=== PATIENT | female | born 1965 | race Caucasian/White ===

== ENCOUNTER → 2019-05-06 17:34 | Outpatient (CLI) | payer BC, SELFPAY ==
--- NOTE | ~2019-05-06 | MM_ITS ---
EXAMINATION: MM screening ginger BI w lou HISTORY: Screening mammogram TECHNIQUE: Craniocaudal and mediolateral oblique 3-D tomosynthesis images were obtained and synthetic 2-D images were generated. CAD analysis was submitted and interpreted. COMPARISON: Comparison to multiple prior studies sequentially, with oldest reviewed study dated 04/2015. BREAST PARENCHYMAL COMPOSITION: The breasts are heterogeneously dense, which may obscure small masses . FINDINGS: There is focal asymmetry in the medial aspect of the right breast on CC view. The left ace st is stable without evidence for malignancy. IMPRESSION: 1. Focal asymmetry medially in the right breast. 2. Additional mammographic views and possible breast ultrasound are recommended. BI-RADS Category 0: Incomplete: Needs additional imaging evaluation. Reviewed, dictated and finalized at location A. STACKER IMPRESSION: 1. Focal asymmetry medially in the right breast. 2. Additional mammographic views and possible breast ultrasound are recommended . BI-RADS Category 0: Incomplete: Needs additional imaging evaluation.
== END ==
PROVIDERS: PCP Internal Medicine; Visit Provider Advanced Practice Midwife
DX: Z12.31 Encounter for screening mammogram for malignant neoplasm of breast (principal); R92.8 Other abnormal and inconclusive findings on diagnostic imaging of breast
CPT/HCPCS: 77063; 77067

== ENCOUNTER 2019-05-17 18:27 | Emergency (ER) | payer BC, SELFPAY ==
--- NOTE | 2019-05-17 18:34 | PC.NURSE ---
[employer] ADMINISTRATOR provider heard pt moaning from the desk, and went to talk with her, and pt decided to just go to the hospital.
== END 2019-05-17 18:34 | disposition left against medical advice (07) ==
PROVIDERS: PCP Internal Medicine
DX: Z53.21 Procedure and treatment not carried out due to patient leaving prior to being seen by health care provider (principal)
CPT/HCPCS: 99199

== ENCOUNTER 2019-05-17 18:47 | Emergency (ER) | payer BC, SELFPAY ==
--- NOTE | ~2019-05-17 | XR_ITS ---
EXAMINATION: [id number] INDICATION: Right rib pain TECHNIQUE: A frontal view of the chest and 3 views of the right ribs were obtained. COMPARISON: None. FINDINGS: The lungs are free of acute opacities. There is no pleural effusion or pneumothorax. The ca rdiomediastinal silhouette is normal. There is a nondisplaced oblique fracture at the anterior aspect of the right fifth rib. IMPRESSION: 1. Nondisplaced fracture at the anterior aspect of the right fifth rib. 2. No acute cardiopulmonary abnormality. Reviewed, dictated and finalized at location A.
[2019-05-17 18:57] VITALS: BP 108/78; PULSE 92; RESP 18; O2SAT 99
[2019-05-17] MEDS: KETOROLAC (*BKC) 60 MG/2 ML VIAL 30 MG IM (19:21)
--- NOTE | 2019-05-17 19:58 | ED.GENADULT ---
HPI - General Adult General Chief complaint: Unspecified Stated complaint: Right rib pain Time Seen by Provider: 05/17/19 18:56 Source: patient Mode of arrival: ambulatory Limitations: no limitations History of Present Illness HPI narrative: Patient presents with chief complaint of right rib pain. Patient states 1 week ago she was reaching over the console in her car and felt a popping sensation. Patient states it was painful but today she reached up and noticed a sharper pain to the area. Patient states she does not actually feel shortness of breath that she feels pain with breathing. Patient states she is able to touch the area of pain. Patient denies cough. patient reports taking ibuprofen for her discomfort. Patient reports having osteoporosis for which she takes Prolia injections. Patient denies being on estrogen therapy. Patient denies history of PE or DVT. Patient does not smoke cigarettes but she does vape. Related Data Home Medications Medication Instructions Recorded Confirmed atorvastatin 05/17/19 bupropion HCl mg PO 05/17/19 diltiazem HCl [Cardizem CD] PO 05/17/19 flecainide 05/17/19 furosemide 05/17/19 potassium chloride meq PO 05/17/19 Allergies Allergy/AdvReac Type Severity Reaction Status Date / Time codeine AdvReac Mild Other Verified 05/17/19 19:04 Review of Systems Review of Systems: Narrative: CONSTITUTIONAL: Denies fever, chills, or sweats. EYES: Denies visual changes, redness, or discharge. ENT: Denies rhinorrhea, congestion, sore throat, or otalgia. CARDIOVASCULAR: Denies chest pain, palpitations, or edema. RESPIRATORY: Denies cough or dyspnea. GASTROINTESTINAL: Denies abdominal pain, nausea, vomiting, or diarrhea. GENITOURINARY: Denies dysuria or hematuria. SKIN: Denies rash or itching. MUSCULOSKELETAL: Denies back pain, joint pain, or myalgia. NEUROLOGIC: Denies headache, numbness, dizziness, or weakness. PSYCHIATRIC: Denies anxiety or depression. PMFSH Social History Social History Gender identity (if verbalized by the patient): Female Exam Narrative: Exam Narrative: GENERAL: Well-appearing, well-nourished. Patient appears uncomfortable holding right rib HEAD: Normocephalic, atraumatic. EYES: PERRLA and EOMI. ENT: Nares clear, no rhinorrhea or epistaxis. Mucous membranes moist. Oropharynx without tonsillar hypertrophy exudate or other lesions. Bilateral TMs pearly sanchez nonbulging CHEST: Tenderness to palpation at fifth rib between breasts and axilla. No divot or flail chesting noted. No abrasions or ecchymosis noted. Clear to auscultation. No respiratory distress. No wheezes rales or rhonchi HEART: Regular rate and rhythm. EXTREMITIES: Normal range of motion. No edema. SKIN: Warm, dry, no rash. NEURO: No focal deficits. Alert and oriented x3. PSYCH: Normal mood and affect. Course Vital Signs Vital signs: Vital Signs Pulse Rate 92 05/17/19 18:57 Respiratory Rate 18 05/17/19 18:57 Blood Pressure 108/78 05/17/19 18:57 Pulse Oximetry 99 05/17/19 18:57 Pulse Rate 92 05/17/19 18:57 Respiratory Rate 18 05/17/19 18:57 Blood Pressure 108/78 05/17/19 18:57 Pulse Oximetry 99 05/17/19 18:57 Medical Decision Making MDM Narrative Medical decision making narrative: Patient declined ABG as she does not feel short of breath, but said that due to pain. Discussed with patient that she has a nondisplaced rib fracture. Discussed with the patient the need to stop vaping. Discussed with the patient the importance of taking deep breaths to avoid pneumonia. Patient states that she does not want any hydrocodone as she does not like the way that it makes her feel. Patient is agreeable to tramadol. Patient states that she will also take ibuprofen which she has at home. Patient reports muscle spasming-like sensation. Vital Signs Vital Signs: Vital Signs Pulse Rate 92 05/17/19 18:57 Respiratory Rate 18 05/17/19 18:57 Blood Pressure 108/
[2019-05-17] MEDS: TRAMADOL HCL 50 MG TABLET PO (20:02)
[2019-05-17 20:45] VITALS: BP 116/79; PULSE 73; RESP 14; O2SAT 97
== END 2019-05-17 20:48 | disposition home or self-care (01) ==
PROVIDERS: Emergency Provider Emergency Medicine; PCP Internal Medicine
DX: S22.31XA Fracture of one rib, right side, initial encounter for closed fracture (principal); X50.9XXA Other and unspecified overexertion or strenuous movements or postures, initial encounter
CPT/HCPCS: 71101; 96372; 99283; A9270; J1885

== ENCOUNTER → 2019-05-26 14:35 | Outpatient (CLI) | payer BC, SELFPAY ==
--- NOTE | ~2019-05-26 | MMUS_ITS ---
EXAMINATION: MM diagnostic mammo unilat RT, US breast RT limited HISTORY: Focal asymmetry in the medial right breast on 05/06/2019 screening mammogram TECHNIQUE: Additional 3-D tomosynthesis images of the right breast were performed and synthetic 2-D i mages were generated. CAD analysis was submitted and interpreted. High resolution breast ultrasound w as performed. COMPARISON: 05/06/2019, 04/30/2018, 03/29/2017, 03/21/2016 bilateral digital screening mammogram examinati ons FINDINGS: MAMMOGRAPHIC FINDINGS: There is an indeterminate approximately 2.5 mm opacity in the mid medial right breast. There appears to be a radiolucent hilus, suggesting this may be a small lymph node. ULTRASOUND: At 3:00 5 cm from the nipple at an area corresponding to the mammographic finding is a similar approx imately 1.4 x 2.3 mm hypoechoic lesion with an adjacent vessel, possibly extending to the hilus of a lymph node. There is no suspicious shadowing. The margins are circumscribed. This is most likely a sm all benign intramammary lymph node. Six-month follow-up is recommended. IMPRESSION: 1. Probable benign small intramammary lymph node at 3:00 5 cm from nipple 2. 6 month diagnostic right mammogram and targeted right breast ultrasound follow-up are recommended. BI-RADS category 3, probably benign findings. Reviewed, dictated and finalized at location A. IMPRESSION: 1. Probable benign small intramammary lymph node at 3:00 5 cm from nipple 2. 6 month diagnostic right mammogram and targeted right breast ultrasound foll ow-up are recommended. BI-RADS category 3, probably benign findings.
== END ==
PROVIDERS: PCP Internal Medicine; Visit Provider Advanced Practice Midwife
DX: R92.8 Other abnormal and inconclusive findings on diagnostic imaging of breast (principal)
CPT/HCPCS: 76642; 77065

== ENCOUNTER 2020-09-26 08:35 | Outpatient (CLI) | payer BC, SELFPAY ==
--- NOTE | 2020-09-26 10:55 | WPDNEUROLOGY ---
Neurology EEG Report General Information Date of Study: 09/26/20 TEST eeg DIAGNOSIS Syncope and collapse CONDITION OF RECORDING awake drowsy and sleep EEG NUMBER [id number] CLINICAL HISTORY patient reported about 3 weeks ago she was out riding her horse when she loss consciousness. She fell off the horse. She felt fine before it happened and fine afterwards. EEG DESCRIPTION Basic resting occipital frequency consists of large amount of well-organized low to medium voltage 9 to 11 hertz per 2nd alpha admixed with 15 to 18 hertz per 2nd beta. During drowsiness low-voltage beta activity seen diffusely admixed with waxing and waning posterior or if a rhythm. Hyperventilation not done. Photic stimulation produced normal drive. Non paroxysmal. Nonfocal. Nonlateralizing. IMPRESSION No significant abnormalities noted in this tracing but considering the clinical symptomatology deprived EEG recommended to rule out the possibility of partial or partial complex seizure at a later date.
== END 2020-09-26 08:36 | disposition home or self-care (01) ==
PROVIDERS: PCP Internal Medicine; Visit Provider Internal Medicine
DX: R55 Syncope and collapse (principal)
CPT/HCPCS: 95816

== ENCOUNTER → 2020-12-30 16:18 | Outpatient (CLI) | payer BC, SELFPAY ==
--- NOTE | ~2020-12-30 | US_ITS ---
EXAMINATION: US thyroid EXAM DATE: 12/30/2020 16:41 INDICATION: Nontoxic single. TECHNIQUE: Multiple grayscale and Doppler images of the thyroid were obtained (by a technologist who performed the scan) and subsequently reviewed. Individual nodules and recommendations may be reporte d in accordance with TI-RADS system as designated by the 2017 ACR White Paper TI-RADS committee. The re is no prior study for comparison. FINDINGS: The right thyroid lobe measures 4.8 x 1.5 x 1.6 cm, the left measuring 4.6 x 1.4 x 1.6 cm. There is 2 mm nodule or cyst in the right thyroid lobe, not a clinically significant finding. Otherwise homogen eous thyroid echogenicity. IMPRESSION: 1. Unremarkable thyroid ultrasound exam. Reviewed, dictated and finalized at location A.
== END ==
PROVIDERS: PCP Internal Medicine; Visit Provider Advanced Practice Midwife
DX: E04.1 Nontoxic single thyroid nodule (principal)
CPT/HCPCS: 76536

== ENCOUNTER 2022-08-08 00:58 | Day surgery (SDC) | payer BC, SELFPAY ==
[2022-08-02 13:55] VITALS: BMI 29.6
--- NOTE | 2022-08-07 11:25 | PM.HPGS ---
History of Present Illness History of Present Illness Consent: Risks, benefits, and alternatives have been discussed and questions answered. Patient agrees to proceed with procedure. Chief complaint: intermittent dysphagia Narrative: Dayami Prasad is a 57 year old female with dysphagia for solid food for the past 2 months. Review of Systems Review of Systems: All systems reviewed & are unremarkable except as noted in HPI and below PMFSH Past Medical History Medical History Anxiety Dysphagia Hyperlipidemia Obesity Osteoporosis SVT (supraventricular tachycardia) Social History Social History Smoking status: Current every day smoker Tobacco type: e-cigarettes/vaping Alcohol intake: never Substance use: never Living arrangements: alone Gender identity (if verbalized by the patient): Female Spiritual care concerns: No Meds Home Medications and Allergies Home Medications Medication Instructions Recorded Confirmed Type atorvastatin 20 mg tablet 40 mg PO DAILY 05/17/19 08/08/22 History bupropion HCl 300 mg 24 hr tablet, 300 mg PO DAILY 05/17/19 08/08/22 History extended release diltiazem HCl 180 mg 180 mg PO DAILY 05/17/19 08/08/22 History capsule,extended release 24 hr (Cardizem CD) flecainide 50 mg tablet 50 mg PO BID 05/17/19 08/08/22 History furosemide 20 mg tablet 20 mg PO DAILY 05/17/19 08/08/22 History potassium chloride 10 mEq 10 meq PO BID 05/17/19 08/08/22 History tablet,extended release Lacto-B.anim,bifid-inulin 30 1 cap PO DAILY 08/02/22 08/08/22 History billion cell-50 mg capsule,delay release (Fortify Probiotic) aspirin 81 mg tablet 81 mg PO DAILY 08/02/22 08/08/22 History calcium carbonate 600 mg-vitamin 1 tablet PO DAILY 08/02/22 08/08/22 History D3 10 mcg (400 unit) tablet (Calcium with Vitamin D) cholecalciferol (vitamin D3) 50 50 mcg PO DAILY 08/02/22 08/08/22 History mcg (2,000 unit) capsule omeprazole 20 mg capsule,delayed 20 mg PO DAILY 08/02/22 08/08/22 History release vitamin E mixed 400 unit capsule 400 unit PO DAILY 08/02/22 08/08/22 History Allergies Allergy/AdvReac Type Severity Reaction Status Date / Time codeine AdvReac Mild Nausea and Verified 08/08/22 07:50 Vomiting Exam Const: General: alert Orientation/consciousness: patient oriented x3 Resp: Auscultation: clear to auscultation bilaterally Cardio: Rhythm: regular rhythm GI: GI Palp: Yes Soft to palpation and No Tenderness to palpation present (GI) Neuro: General: patient oriented x3 Assessment and Plan Assessment and plan (1) Dysphagia: Code(s): R13.10 - Dysphagia, unspecified Status: Acute Assessment and Plan: EGD with possible biopsy or dilatation or cautery.
[2022-08-08 07:24] VITALS: BP 127/77; PULSE 84; RESP 20; TEMP 36.2; O2SAT 98
--- NOTE | 2022-08-08 07:35 | WPDANESEPPF ---
Anes - Initial Pre Proc Eval Procedure: Operation Date: 08/08/22 08:30 Proposed Procedures p Esophagogastroduodenoscopy - Quincy Morrison MD Date/Time: 08/08/22 07:35 Surgeon: Quincy Morrison MD Pre Op Diagnosis: intermittent dysphagia Patient Data Age: 57 Gender: F Height: 1.73 m Weight: 90.3 kg Last Vital Signs Temp 36.2 C L 08/08/22 07:24 Pulse 84 08/08/22 07:24 Resp 20 08/08/22 07:24 BP 127/77 08/08/22 07:24 Pulse Ox 98 08/08/22 07:24 O2 Del Method Room Air 08/08/22 07:24 Allergies Allergy/AdvReac Type Severity Reaction Status Date / Time codeine AdvReac Mild Nausea and Verified 08/02/22 13:57 Vomiting Home Medications Medication Instructions Recorded Confirmed Type atorvastatin 20 mg tablet 40 mg PO DAILY 05/17/19 08/02/22 History bupropion HCl 300 mg 24 hr tablet, 300 mg PO DAILY 05/17/19 08/02/22 History extended release diltiazem HCl 180 mg 180 mg PO DAILY 05/17/19 08/02/22 History capsule,extended release 24 hr (Cardizem CD) flecainide 50 mg tablet 50 mg PO BID 05/17/19 08/02/22 History furosemide 20 mg tablet 20 mg PO DAILY 05/17/19 08/02/22 History potassium chloride 10 mEq 10 meq PO BID 05/17/19 08/02/22 History tablet,extended release Lacto-B.anim,bifid-inulin 30 1 cap PO DAILY 08/02/22 08/02/22 History billion cell-50 mg capsule,delay release (Fortify Probiotic) aspirin 81 mg tablet 81 mg PO DAILY 08/02/22 08/02/22 History calcium carbonate 600 mg-vitamin 1 tablet PO DAILY 08/02/22 08/02/22 History D3 10 mcg (400 unit) tablet (Calcium with Vitamin D) cholecalciferol (vitamin D3) 50 50 mcg PO DAILY 08/02/22 08/02/22 History mcg (2,000 unit) capsule omeprazole 20 mg capsule,delayed 20 mg PO DAILY 08/02/22 08/02/22 History release vitamin E mixed 400 unit capsule 400 unit PO DAILY 08/02/22 08/02/22 History Patient hx anesthesia problems: none Family hx anesthesia problems: none Results Review: All pre-operative results and documents have been reviewed as part of the pre-operative evaluation. [facility] Past Medical History Medical History (Updated 08/08/22 @ 07:36 by Tarun Herring MD) Anxiety Dysphagia Hyperlipidemia Obesity Osteoporosis SVT (supraventricular tachycardia) Social History Social History Smoking status: Current every day smoker Tobacco type: e-cigarettes/vaping Alcohol intake: never Substance use: never Living arrangements: alone Gender identity (if verbalized by the patient): Female Spiritual care concerns: No Anes - Eval Final PreProcedure Day of Procedure 08/08/22 07:35 Patient weight: obese Heart: regular rate and rhythm Lungs: clear to auscultation and normal air movement Airway: Mallampati scale class II Neurological: alert and oriented Last oral intake: >/= 8 hours ASA classification: III Emergent: no Anesthetic plan: proceed Anesthesia type and monitoring: general GIVS Results Review: All pre-operative results and documents have been reviewed as part of the pre-operative evaluation. Informed Consent: The patient's anesthetic plan and its attendant risks and benefits were discussed with the patient/family/POA. Questions were solicited and answers provided to the satisfaction of the patient/family/POA.
[2022-08-08] MEDS: LACTATED RINGERS 1,000 ML 150 ML IV CONT (07:49)
[2022-08-08 08:43] VITALS: BP 117/75; PULSE 77; RESP 20; O2SAT 98
[2022-08-08 08:53] VITALS: BP 117/75; PULSE 74; RESP 18; O2SAT 97
[2022-08-08 09:03] VITALS: BP 120/68; PULSE 70; RESP 18; O2SAT 98
== END 2022-08-08 09:09 | disposition home or self-care (01) ==
PROVIDERS: PCP Internal Medicine; Visit Provider Internal Medicine Gastroenterology
PROC: 0DJ08ZZ Inspection of Upper Intestinal Tract, Via Natural or Artificial Opening Endoscopic (ICD-10-PCS; CPT 43235; principal; 2022-08-08 08:30)
DX: K22.2 Esophageal obstruction (principal); K21.9 Gastro-esophageal reflux disease without esophagitis; E78.5 Hyperlipidemia, unspecified; M81.0 Age-related osteoporosis without current pathological fracture; I47.1 Supraventricular tachycardia; F41.9 Anxiety disorder, unspecified; E66.9 Obesity, unspecified; Z68.30 Body mass index [BMI] 30.0-30.9, adult; F17.290 Nicotine dependence, other tobacco product, uncomplicated
CPT/HCPCS: 43249; 88305; C1726; J2001; J2704; J7120

== ENCOUNTER 2023-04-18 07:16 | Day surgery (SDC) | payer OTHER, SELFPAY ==
[2023-04-02 11:00] VITALS: BMI 32.6
[2023-04-18 08:32] VITALS: BP 112/79; PULSE 93; RESP 20; TEMP 36.7; O2SAT 98
--- NOTE | 2023-04-18 08:45 | WPDANESEPPF ---
Anes - Initial Pre Proc Eval Procedure: Operation Date: 04/18/23 09:30 Proposed Procedures p Diagnostic Colonoscopy - Sherif Angel MD Date/Time: 04/18/23 08:45 Surgeon: Sherif Angel MD Pre Op Diagnosis: Change in bowel habit,family HX of malignant Patient Data Age: 58 Gender: F Height: 1.73 m Weight: 95.1 kg Last Vital Signs Temp 36.7 C 04/18/23 08:32 Pulse 93 04/18/23 08:32 Resp 20 04/18/23 08:32 BP 112/79 04/18/23 08:32 Pulse Ox 98 04/18/23 08:32 O2 Del Method Room Air 04/18/23 08:32 Allergies Allergy/AdvReac Type Severity Reaction Status Date / Time codeine AdvReac Mild Nausea and Verified 04/18/23 08:30 Vomiting Home Medications Medication Instructions Recorded Confirmed Type atorvastatin 20 mg tablet 40 mg PO DAILY 05/17/19 04/02/23 History bupropion HCl 300 mg 24 hr tablet, 300 mg PO DAILY 05/17/19 04/02/23 History extended release diltiazem HCl 180 mg 180 mg PO DAILY 05/17/19 04/18/23 History capsule,extended release 24 hr (Cardizem CD) flecainide 50 mg tablet 50 mg PO BID 05/17/19 04/18/23 History furosemide 20 mg tablet 20 mg PO DAILY 05/17/19 04/02/23 History potassium chloride 10 mEq 10 meq PO BID 05/17/19 04/02/23 History tablet,extended release Lacto-B.anim,bifid-inulin 30 1 cap PO DAILY 08/02/22 04/02/23 History billion cell-50 mg capsule,delay release (Fortify Probiotic) aspirin 81 mg tablet 81 mg PO DAILY 08/02/22 04/02/23 History calcium carbonate 600 mg-vitamin 1 tablet PO DAILY 08/02/22 04/02/23 History D3 10 mcg (400 unit) tablet (Calcium with Vitamin D) cholecalciferol (vitamin D3) 50 50 mcg PO DAILY 08/02/22 04/02/23 History mcg (2,000 unit) capsule omeprazole 20 mg capsule,delayed 20 mg PO DAILY 08/02/22 04/02/23 History release vitamin E mixed 400 unit capsule 400 unit PO DAILY 08/02/22 04/02/23 History sodium,potassium,mag sulfates 17.5 See Rx Instructions PO .COMPLEX 04/02/23 04/02/23 Rx gram-3.13 gram-1.6 gram oral soln #354 mL (Suprep Bowel Prep Kit) Patient hx anesthesia problems: none Family hx anesthesia problems: none Results Review: All pre-operative results and documents have been reviewed as part of the pre-operative evaluation. PMFSH Past Medical History Medical History Anxiety Change in bowel habits Dysphagia Family hx of colon cancer Hyperlipidemia Obesity Osteoporosis SVT (supraventricular tachycardia) Social History Social History Smoking status: Former smoker Tobacco type: cigarettes and e-cigarettes/vaping Additional smoking assessment comments: states quit smoking 8-9 years ago when had SVT episode Alcohol intake: never Substance use: never Substance use type: does not use Living arrangements: with family Gender identity (if verbalized by the patient): Female Spiritual care concerns: No Anes - Eval Final PreProcedure Day of Procedure 04/18/23 08:45 Patient weight: obese Heart: regular rate and rhythm Lungs: clear to auscultation Airway: Mallampati scale class II Neurological: alert and oriented Last oral intake: >/= 8 hours ASA classification: III Emergent: no Anesthetic plan: proceed Anesthesia type and monitoring: general GIVS and standard monitoring Results Review: All pre-operative results and documents have been reviewed as part of the pre-operative evaluation. Informed Consent: The patient's anesthetic plan and its attendant risks and benefits were discussed with the patient/family/POA. Questions were solicited and answers provided to the satisfaction of the patient/family/POA.
[2023-04-18] MEDS: LACTATED RINGERS 1,000 ML 150 ML IV CONT (09:01)
--- NOTE | 2023-04-18 09:14 | PM.HPGS ---
History of Present Illness History of Present Illness Consent: Risks, benefits, and alternatives have been discussed and questions answered. Patient agrees to proceed with procedure. Chief complaint: family hx of colon cancer Narrative: Dayami Prasad is a 58 year old female presents for screening colonoscopy. Patient's sister has colon cancer a different sister has colon polyps. Patient reports her current weight appetite are normal. Previous colonoscopy 7 or 8 years ago was unremarkable. Patient reports her bowel habits currently are normal. She had a brief episode of constipation recently. She has had no bleeding. Review of Systems Review of Systems: Review of systems noncontributory. [facility] Past Medical History Medical History Anxiety Change in bowel habits Dysphagia Family hx of colon cancer Hyperlipidemia Obesity Osteoporosis SVT (supraventricular tachycardia) Social History Social History Smoking status: Former smoker Tobacco type: cigarettes and e-cigarettes/vaping Additional smoking assessment comments: states quit smoking 8-9 years ago when had SVT episode Alcohol intake: never Substance use: never Substance use type: does not use Living arrangements: with family Gender identity (if verbalized by the patient): Female Spiritual care concerns: No Meds Home Medications and Allergies Home Medications Medication Instructions Recorded Confirmed Type atorvastatin 20 mg tablet 40 mg PO DAILY 05/17/19 04/02/23 History bupropion HCl 300 mg 24 hr tablet, 300 mg PO DAILY 05/17/19 04/02/23 History extended release diltiazem HCl 180 mg 180 mg PO DAILY 05/17/19 04/18/23 History capsule,extended release 24 hr (Cardizem CD) flecainide 50 mg tablet 50 mg PO BID 05/17/19 04/18/23 History furosemide 20 mg tablet 20 mg PO DAILY 05/17/19 04/02/23 History potassium chloride 10 mEq 10 meq PO BID 05/17/19 04/02/23 History tablet,extended release Lacto-B.anim,bifid-inulin 30 1 cap PO DAILY 08/02/22 04/02/23 History billion cell-50 mg capsule,delay release (Fortify Probiotic) aspirin 81 mg tablet 81 mg PO DAILY 08/02/22 04/02/23 History calcium carbonate 600 mg-vitamin 1 tablet PO DAILY 08/02/22 04/02/23 History D3 10 mcg (400 unit) tablet (Calcium with Vitamin D) cholecalciferol (vitamin D3) 50 50 mcg PO DAILY 08/02/22 04/02/23 History mcg (2,000 unit) capsule omeprazole 20 mg capsule,delayed 20 mg PO DAILY 08/02/22 04/02/23 History release vitamin E mixed 400 unit capsule 400 unit PO DAILY 08/02/22 04/02/23 History sodium,potassium,mag sulfates 17.5 See Rx Instructions PO .COMPLEX 04/02/23 04/02/23 Rx gram-3.13 gram-1.6 gram oral soln #354 mL (Suprep Bowel Prep Kit) Allergies Allergy/AdvReac Type Severity Reaction Status Date / Time codeine AdvReac Mild Nausea and Verified 04/18/23 08:30 Vomiting Vital Signs Vital Signs - 24 hr 04/18/23 08:32 Temperature 98.1 F Pulse Rate 93 Respiratory Rate 20 Blood Pressure 112/79 Pulse Oximetry 98 Oxygen Delivery Room Air Exam Narrative: Physical exam reveals patient to be alert. Vital signs stable. HEENT exam is unremarkable. The is anicteric. Lungs are clear to auscultation and to percussion. Heart is without murmur or extra sounds. Abdomen bowel sounds are present soft nontender with no organomegaly, . digital external rectal exam normal. Assessment and Plan Assessment and plan (1) Family hx of colon cancer: Code(s): Z80.0 - Family history of malignant neoplasm of digestive organs Status: Acute Assessment and Plan: Patient has a family history of colon cancer in 1 sister and colon polyps in an alternate sister. Plan for surveillance colonoscopy now and at least every 5 years in the future.
[2023-04-18 09:47] VITALS: BP 115/85; PULSE 91; RESP 16; O2SAT 98
[2023-04-18 09:57] VITALS: BP 128/96; PULSE 91; RESP 16; O2SAT 99
--- NOTE | 2023-04-18 09:59 | WPDANESPN ---
Anes - Prog Note Post-Op Date/Time: 04/18/23 09:59 Cardiovascular status: normal Respiratory status: normal Airway patency: baseline Mental status: baseline Post-Op hydration status: normal Vital Signs: Last Vital Signs Temp 36.7 C 04/18/23 08:32 Pulse 91 04/18/23 09:47 Resp 16 04/18/23 09:47 BP 115/85 04/18/23 09:47 Pulse Ox 98 04/18/23 09:47 O2 Del Method Room Air 04/18/23 09:47 Pain Score (VAS): 0/10 I/O: Intake & Output 04/17/23 04/18/23 04/18/23 23:59 07:59 15:59 Intake Total 500 Balance 500 Patient Feedback: Patient satisfied with anesthetic care.
[2023-04-18 10:07] VITALS: BP 130/80; PULSE 89; RESP 16; O2SAT 99
== END 2023-04-18 10:27 | disposition home or self-care (01) ==
PROVIDERS: PCP Internal Medicine; Visit Provider Internal Medicine Gastroenterology
PROC: 0DJD8ZZ Inspection of Lower Intestinal Tract, Via Natural or Artificial Opening Endoscopic (ICD-10-PCS; CPT 45378; principal; 2023-04-18 09:30)
DX: Z80.0 Family history of malignant neoplasm of digestive organs (principal)
CPT/HCPCS: 45378

== ENCOUNTER 2024-03-21 11:06 | Outpatient (CLI) | payer OTHER, SELFPAY ==
--- NOTE | ~2024-03-21 | XR_ITS ---
EXAM: XR ankle RT min 3V, XR foot RT min 3V DATE: 03/21/2024 12:10 HISTORY: Pain in R foot, and hip . COMPARISON: None available. FINDINGS: Normal mineralization. No fracture or dislocation. No lytic or blastic lesion. Mild degene rative change at the ankle, first interphalangeal joint and multiple midfoot joints. Moderate degener ative change at the first MTP joint. Bunionectomy changes. Mild hallux valgus. Severe degenerative ch myke at the first digit lateral sesamoid. Os navicularis. Achilles enthesopathy. No erosion or perios teal change. Scattered soft tissue calcifications. 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 Status post bunionectomy. Reviewed, dictated and finalized at location K. 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 Status post bunionectomy.
--- NOTE | ~2024-03-21 | XR_ITS ---
EXAM: XR hip RT 2V w AP pelvis DATE: 03/21/2024 12:10 HISTORY: Pain in R ankle; Pain in R foot; Pain in R hip . COMPARISON: X-ray sacrum/coccyx 08/28/2016. FINDINGS: Normal mineralization. No fracture or dislocation. No lytic or blastic lesion. Lumbar dege nerative disc disease. Mild degenerative change at the bilateral hips. No erosion or periosteal dyer e. Soft tissues within normal limits. IMPRESSION: Mild bilateral hip osteoarthritis. Reviewed, dictated and finalized at location K. R POL[facility]ER
== END 2024-03-21 11:07 | disposition home or self-care (01) ==
PROVIDERS: PCP Internal Medicine; Visit Provider Internal Medicine
DX: M16.0 Bilateral primary osteoarthritis of hip (principal); M19.071 Primary osteoarthritis, right ankle and foot
CPT/HCPCS: 73502; 73610; 73630

== ENCOUNTER 2024-04-03 13:13 | Outpatient (CLI) | payer OTHER, SELFPAY ==
--- OUTSIDE RECORDS SUMMARY | 2024-04-03 13:19 | XMS_ITS | Data Portability ---
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 Talked in detail about pap history. Pt was very concerned. Had a fall d/t passing out while riding her horse Left thyroid nodule [email or web address] Not available 12/26/2020 18:24:49 12/28/2021 12/28/2021 Annual gynecological exam performed. Patient will come back in a year unless there are new symptoms. [email or web address] Not available 12/28/2021 17:06:30 01/02/2023 01/02/2023 Annual gynecological exam performed. Patient will come back in a year unless there are new symptoms. [email or web address] Not available 01/02/2023 17:01:06 01/21/2024 01/21/2024 Annual gynecological exam performed. Patient will come back in a year unless there are new symptoms. [email or web address] Not available 01/20/2024 12:59:06 Plan of Treatment Reminders Order Date Submit Date Provider Last Modified By Organization Details Last Modified Time Details Appointments None recorded . Lab None recorded . Referral dermatol ogist referral - Melanocy tic nevus of skin. Full body skin check.Pl ease contact this patient to schedule an appointm ent.Jean Paul ched are the patients demograp hics and most recent office visit notes.If you have any question s, please contact me at [phone].Th ank you,Mendel joseph, Referral 's 2021 022 [facility] Skin [facility], [address], [place], [address], 10:47:00 Procedures None recorded . Surgeries None recorded . Imaging US, thyroid - left thyroid nodule 2020 021 [facility], [address], [place], [address], 18:02:57 Medication Orders None recorded . Patient TargetsNo targets recorded. Patient InstructionsNo instructions recorded. 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 Full body skin check. Melanocytic nevus of skin. Full body skin check.Please contact this patient to schedule an appointment.Attached are the patients demographics and most recent office visit notes.If you have any questions, please contact me at [phone].Thank you,Meli, Referral's Referring Physician: Mariana Chaudhari, TICKETING AGENT, Encounter Date: 12/28/2021 Results Created Date Observation Date Name Description Value Unit Range Abnormal Flag Note LastModifiedBy Organization Detail LastModifiedTime 12/28/1912/27/2020 TSH/ REFLE X FT4 AND FT3 TSH 1.32 uIU/m L 0.30-5 .33 Not Available [facility] (Lab) [address], [place], [address], 12/28/2020 02:05:20 12/28/19 21 12/27/2020 IMAGE GUIDE D PAP AND HPV REGAR DLESS image guided Pap, HPV regardless of Pap result SEE RESULT S BELOW CASE REPOR T: Cytol ogy Gynec ologi anna Repor t Case: [id number] Autho rinailan g Provi davon: Rafia Tyler CNM Colle cted: 12/27 0841 Order ing Locat ion: [place] Patho loglos Mottai bonita: 12/28 0055 First Pauly n: Jeannine Venegas Speci men: Pauly arcos Pap - Image d, Malik gaston STATE MENT OF ADEQU ACY: Satis facto ry for evalu ation Corre cted resul t: Previ ously repor raman on 2020 at 1833 CDT. FINAL DIAGN OSIS: Negat robb for Intra epith elial Jeffrey astudillo or Luis gallegos (NIL) . Amend ment elect brie matta by Kimberly Gutierrez , [place] on 2020 at 6:36 PM ----- ----- ----- ----- ----- ----- ----- ----- ----- ----- ----- ----- ----- ----- ----- ----- ----- ---- Elect brie matta by Jeannine Venegas on 2020 at 6:33 PM ----- ----- ----- ----- ----- ----- ----- ----- ----- ----- ----- ----- ----- ----- ----- ----- ----- ---- HPV RESUL TS: HPV mRNA E6/E7 : No HPV mRNA Detec raman NOTE: This high risk HPV mRNA assay detec ts fourt een high- risk HPV types (16, 18, 31, 33, 35, 39, 45, 51, 52, 56, 58, 59, 66, 68) witho ut diffe renti ation . COMME NT: Note: This speci men was revie wed by a Cytot echno logis t and/o r Patho logis t (as indic ated in this repor t) after evalu ation using the Thinp rep Imagi ng Syste m. CLINI ANNA INFOR MATIO N: Menst rual Statu s: LMP (if appli cable ): 000 Clini anna Histo ry/Pr eviou s Pap: Type of Neopl justice (if appli cable ): Signi fican t Clini anna Findi ngs: Other Histo ry: Hormo mayito (if appli cable ): PAP EDUCA AYDIN L NOTE: The Pap Test is a scree josselyn test with an inher ent false negat robb rate. Liqui d-bas e sampl ing may decre ase, but will not elimi ronni, false negat robb resul ts. A negat robb resul t does not precl ude the prese nce and/o r devel opmen t of disea se, since the prese nce of abnor mal cells in the sampl e depen ds on the locat ion of the lesio n and sampl ing techn ique. Jenifer nued regul ar scree josselyn is the best metho d of cance r preve ntion . If repor raman cytol ogic findi ng do not corre late with physi anna and/o r histo rical findi ngs, furth er inves tigat ion is recom kelle d, as clini nevaeh warra nted. Not Available [facility] (Lab) [address], [place], [address], 01/02/2021 19:39:26 12/29/19 22 12/28/2021 IMAGE GUIDE D PAP AND HPV REGAR DLESS image guided Pap, HPV regardless of Pap result SEE RESULT S BELOW CASE REPOR T: Cytol ogy Gynec ologi anna Repor t Case: [id number] Autho nafisa g Provi davon: Mariana Chaudhari, ICE CREAM SERVER Colle cted: 12/28 1721 Order ing Locat ion: [place] Patho logy Recei bonita: 12/29 0041 First Scree n: Strut z, Willi am, CT Rescr een: Jonathon en, Cassa ndra Speci men: Scree josselyn Pap - Image d, Vagin a STATE MENT OF ADEQU ACY: UNSAT ISFAC TORY SPECI MEN FINAL DIAGN OSIS: Unsat isfac tory for evalu ation . Inade quate squam ous epith elial compo nent for diagn osis. Elect brie joyce eliza d by Emily Odom on 2021 at 11:23 AM ----- ----- ----- ----- ----- ----- ----- ----- ----- ----- ----- ----- ----- ----- ----- ----- ----- ---- HPV RESUL TS: HPV mRNA E6/E7 : No HPV mRNA Detec raman NOTE: This high risk HPV mRNA assay detec ts fourt een high- risk HPV types (16, 18, 31, 33, 35, 39, 45, 51, 52, 56, 58, 59, 66, 68) witho ut diffe renti ation . COMME NT: Note: This speci men was revie wed by a Cytot echno logis t and/o r Patho logis t (as indic ated in this repor t) after evalu ation using the Thinp rep Imagi ng Syste m. CLINI ANNA INFOR MATIO N: Menst rual Statu s: LMP (if appli cable ): Clini anna Histo ry/Pr eviou s Pap: Type of Neopl justice (if appli cable ): Signi ficajith t Clini anna Findi ngs: Other Histo ry: Hormo mayito (if appli cable ): Not Available [facility] (Lab) [address], [place], [address], 01/03/2022 12:26:04 01/23/20 22 01/22/2022 IMAGE GUIDE D PAP AND HPV REGAR DLESS image guided Pap, HPV regardless of Pap result SEE RESULT S BELOW CASE REPOR T: Cytol ogy Gynec ologi anna Repor t Case: [id number] Autho nafisa valverde Provi davon: Mariana Chaudhari, MIGDALIA Colle cted: 01/22 1642 Order ing Locat ion: [place] Patho logy Recei bonita: 01/23 0349 First Scree n: Criss curtis, Ange wilson, CT Speci men: Scree josselyn Pap - Image d, Vagin a STATE MENT OF ADEQU ACY: Satis facto ry for evalu ation FINAL DIAGN OSIS: Negat robb for Intra epith elial Lesio n or Luis rosy (NIL) . Atrop hy prese nt. Elect brie joyce eliza d by Criss curtis, Ange wilson, CT on 01/24 at 8:41 PM ----- ----- ----- ----- ----- ----- ----- ----- ----- ----- ----- ----- ----- ----- ----- ----- ----- ---- HPV RESUL TS: HPV mRNA E6/E7 : No HPV mRNA Detec raman NOTE: This high risk HPV mRNA assay detec ts fourt een high- risk HPV types (16, 18, 31, 33, 35, 39, 45, 51, 52, 56, 58, 59, 66, 68) witho ut diffe renti ation . COMME NT: Note: This speci men was revie wed by a Cytot echno logis t and/o r Patho logis t (as indic ated in this repor t) after evalu ation using the Thinp rep Imagi ng Syste m. CLINI ANNA INFOR MATIO N: Menst rual Statu s: Parti al Hyste recto my LMP (if appli cable ): Clini anna Histo ry/Pr eviou s Pap: Type of Neopl justice (if appli cable ): Signi fican t Clini anna Findi ngs: Other Histo ry: Hormo mayito (if appli cable ): PAP EDUCA AYDIN L NOTE: The Pap Test is a scree josselyn test with an inher ent false negat robb rate. Liqui d-bas ed sampl ing may decre ase, but will not elimi ronni, false negat robb resul ts. A negat robb resul t does not precl ude the prese nce and/o r devel opmen t of disea se, since the prese nce of abnor mal cells in the sampl e depen ds on the locat ion of the lesio n and sampl ing techn ique. Jenifer nued regul ar scree josselyn is the best metho d of cance r preve ntion . If repor raman cytol ogic findi ng do not corre late with physi anna and/o r histo rical findi ngs, furth er inves tigat ion is recom kelle d, as clini nevaeh jones nted. Not Available [facility]) [address], [place], [address], 01/24/2022 21:44:38 12/31/1912/30/2020 US, thyro id No observ ation record ed. [facility] [address], [place], [address], 01/04/2021 16:14:36 12/31/1912/30/2020 US, thyro id No observ ation record ed. [facility] [address], [place], [address], 01/10/2021 13:50:45 Result Notes None recorded. Problems Name Problem SNOMED Code Status Onset Date Resolution Date Notes Provider Name and Address Organization Details Recorded Time Screenin g for malignan t neoplasm of rectum Completed 201612/23/2020 Encounte r for screenin g for malignan t neoplasm of rectum;P flakito ID: 0001 Daisy cheatham, [facility] 15:19:51 Sexual function painful Completed 201612/23/2020 Unspecif ied dyspareu leilani;Prac rowan ID: 0001 Daisy cheatham, [facility] 15:19:44 Abnormal weight gain [id number] Completed 201612/23/2020 Abnormal weight gain;Pra ctice ID: 0001 Daisy cheatham, [facility] 15:19:38 Syphilis test finding [id number] Completed 201612/23/2020 Encntr screen for infectio ns w sexl mode of transmis s;Practi ce ID: 0001 Daisy cheatham [facility] 15:19:55 Infectio n screenin g Completed 201612/23/2020 Encounte r for screenin g for oth infec/pa rastc diseases ;Practic e ID: 0001 Daisy Doyle [facility] 15:19:[address] Concept Completed 201712/23/2020 Encntr for general adult medical exam w/o abnormal findings ;Practic e ID: 0001 Daisyall Doyle [facility] 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 15:19:54 Finding of sensatio n of breast Completed 201712/23/2020 Mastodyn ia;Pract ice ID: 0001 Daisy cheatham [facility] 15:19:42 Blood leukocyt e number above referenc e range [id number] Completed 201812/23/2020 Elevated white blood cell count, unspecif ied;Prac rowan ID: 0001 Daisy cheatham [facility] 15:19:57 Urinary tract infectio us disease [id number] Completed 201212/23/2020 Urinary Tract Infectio n;Record ed Elsewher e: No Locat ion: Horacio leonard [facility] S ource: EHR Host/Hostess Restaurant luisa: N Practi ce ID: 0001 Akash lable Time: 03:15:00 PM Daisy cheatham [facility] 15:20:02 Body mass index 25-29 - overweig ht [id number] Completed 201712/23/2020 Body mass index (BMI) 29.0-29. 9, adult;Re corded Elsewher e: No Locat ion: [facility] S ource: EHR Host/Hostess Restaurant luisa: Bijan Galaviz ce ID: 0001 Akash lable Time: 05:00:00 PM Daisy cheatham [facility] 15:19:39 Radiolog ic finding [id number] Completed 201912/23/2020 Oth abn and inconclu sive findings on dx imaging of breast;R ecorded Elsewher e: No Locat ion: [facility] S ource: EHR Host[employer]ess Restaurant luisa: Bijan Galaviz ce ID: 0001 Akash lable Time: 04:31:16 PM Daisy cheatham, [facility] 15:19:50 Screenin g for malignan t neoplasm of cervix Completed 201312/23/2020 Screenin g for malignan t neoplasm s of the cervix;R ecorded Elsewher e: No Locat ion: [facility] S ource: EHR Host[employer]ess Restaurant luisa: Bijan Galaviz ce ID: 0001 Akash lable Time: 05:00:00 PM Daisy cheatham [facility] 15:19:41 Atrophic vaginiti s [id number] Completed 201712/23/2020 Senile vaginiti s;Record ed Elsewher e: No Locat ion: [facility] S ource: EHR Host[employer] luisa: Bijan Galaviz ce ID: 0001 Akash lable Time: 05:00:00 PM Daisy cheatham [facility] 15:20:00 [facility] medical examinat ion Completed 201112/23/2020 Gynecolo gical Examinat ion;Maxx rded Elsewher e: No Locat ion: [facility] S ource: EHR Host[employer]ess Restaurant luisa: N Practi ce ID: 0001 Akash lable Time: 04:45:00 PM Daisy cheatham [facility] 15:19:58 Overwe ht [id number] Completed 201312/23/2020 Overweig ht;Pract ice ID: 0001 [facility] 15:19:45 Adult health examinat ion Completed 201312/23/2020 Routine general medical examinat ion at a [facility] facility ;Practic e ID: 0001 Daisy cheatham [facility] 15:19:48 Human papillom a virus screenin g Completed 201912/23/2020 Encounte r for screenin g for human papillom avirus (HPV);Re corded Elsewher e: No Locat ion: [facility] S ource: EHR Host/Hostess Restaurant luisa: N Practi ce ID: 0001 Akash lable Time: 04:31:16 PM [facility] 15:20:03 Problem Notes None recorded. Procedures Surgical History Date Name Laterality Status Provider Name and Address Organization Details Recorded Time 06/03/19 24 Date of Last Mammogram completed [facility] 01/21/2024 09:50:05 01/03/20 23 Colonoscopy completed [facility] 01/21/2024 09:51:16 10/17/19 23 Most Recent Bone Density completed Sylvia Fernandez [facility] 01/02/2023 17:14:44 01/23/20 22 Date of Last Pap Smear completed [facility] 01/21/2024 09:49:23 07/03/19 21 completed Daisyall Doyle [facility] 12/26/2020 17:30:46 03/04/19 14 completed Daisy Doran [facility] 12/26/2020 17:31:26 03/04/19 00 Partial Hysterectomy completed [facility] Vivek [facility] 12/23/2020 15:17:11 Imaging Results Imaging Date Name Status LastModified by Organiz ation Details LastModified Time 12/30/2020 US, thyroid completed [facility] [address], [place], [address], 01/04/2021 16:14:36 12/30/2020 US, thyroid completed [facility] [address], [place], [address], 01/10/2021 13:50:45 Procedure Notes None recorded. Medical Equipment None Reported. Allergies No known drug allergies Medications Name Sig Start Date Stop Date Status Note LastModified by Organization Details LastModified Time amoxicill in 500 mg capsule TAKE 1 CAPSULE BY MOUTH THREE TIMES DAILY FOR 10 DAYS 01/02 completed Not Available Not Available Not Available furosemid e 10 mg/mL injection solution inject 2 millilit er by intraven ous route every day slowly 12/23 completed Prescrib ed Elsewher e: Yes Loca tion: [facility] odify By: [email or web address] Aleah patel DateTime : 03/13/19 17 05:15:00 PM Not Available Not Available Not Available atorvasta tin 40 mg tablet active Not Available Not Available Not Available Evista 60 mg tablet take 1 tablet by oral route every day 08/27 completed Prescrib ed Elsewher e: Yes Loca tion: [facility] odify By: [email or web address] loyolaunter DateTime : 10/12/19 17 10:45:00 AM Not Available Not Available Not Available citalopra m 10 mg/5 mL oral solution take 10 millilit er by oral route every day 10/11 completed Prescrib ed Elsewher e: Yes Loca tion: [facility] odify By: trip Bullard r DateTime : 03/13/19 17 05:15:00 PM Not Available Not Available Not Available hydrocodo ne 5 mg-acetam inophen 325 mg tablet 12/23 completed Not Available Not Available Not Available potassium chloride ER 10 mEq tablet,ex tended release active Not Available Not Available Not Available Klor-Con 20 mEq oral packet take 1 packet by oral route 4 times every day dissolve d in 4-6 ounces of cold water or juice 12/28 completed Not Available Not Available Not Available Cardizem 30 mg tablet take 1 tablet by oral route 3 times every day 12/23 completed Prescrib ed Elsewher e: Yes Loca tion: [facility] odify By: fabricio soto DateTime : 01/13/20 15 05:45:00 PM Not Available Not Available Not Available Cardizem CD 180 mg capsule,e xtended release Take 1 capsule every day by oral route. active Not Available Not Available No t Available tramadol 50 mg tablet TAKE 1 TABLET BY MOUTH EVERY 6 HOURS 12/23 completed Not Available Not Available Not Available amiloride 5 mg tablet take 1 tablet by oral route every day with food 01/12 completed Prescrib ed Elsewher e: Yes Loca tion: [facility] odify By: fabricio soto DateTime : 11/07/19 12 04:45:00 PM Not Available Not Available Not Available prednisol one acetate 1 % eye drops,lili pension INSTILL 1 DROP INTO LEFT EYE 4 TIMES DAILY FOR 4 DAYS 01/19 completed Not Available Not Available Not Available magnesium oxide 400 mg (241.3 mg magnesium ) tablet Take by oral route. active Not Available Not Available No t Available Wellbutri n 75 mg tablet take 1 tablet by oral route 3 times every day 03/13 completed Prescrib ed Elsewher e: Yes Loca tion: [facility] odify By: trip Bullard r DateTime : 10/12/19 17 10:45:00 AM Not Available Not Available Not Available flecainid e 50 mg tablet take 1 tablet by oral route every 12 hours active Not Available Not Available No t Available hydrochlo rothiazid e 12.5 mg capsule take 2 capsule by oral route every day 03/13 completed Prescrib ed Elsewher e: Yes [facility] By: smcaley Aleah patel DateTime : 01/13/20 15 05:45:00 PM Not Available Not Available Not Available cephalexi n 500 mg tablet 12/23 completed Not Available Not Available Not Available furosemid e 20 mg tablet active Not Available Not Available Not Available methylpre dnisolone 4 mg tablets in a dose pack 12/28 completed Not Available Not Available Not Available magnesium 30 mg tablet 12/28 completed Not Available Not Available Not Available amoxicill in 875 mg-potass ium clavulana te 125 mg tablet TAKE 1 TABLET BY MOUTH EVERY 12 HOURS FOR 10 DAYS 01/19 completed Not Available Not Available Not Available Bactrim DS 800 mg-160 mg tablet take 1 tablet by oral route every 12 hours 01/05 completed Prescrib ed Elsewher e: No Locat ion: [facility] odify By: huber gunter DateTime : 01/20/20 13 03:15:00 PM Not Available Not Available Not Available Calcium-5 00 500 mg (as calcium carbonate 1,250 mg) tablet 12/28 completed Not Available Not Available Not Available risedrona te 35 mg tablet take 1 tablet by oral route every week in the morning, at least 30 min before first food, beverage , or medicati on of day 12/23 completed Prescrib ed Elsewher e: Yes Loca tion: [facility] odify By: torres gunter DateTime : 08/28/19 18 04:15:00 PM Not Available Not Available Not Available moxifloxa flako 0.5 % eye drops INSTILL 1 DROP INTO THE LEFT EYE EVERY HOUR FOR 1 WEEK 01/20 completed Not Available Not Available Not Available Premarin 0.625 mg/gram vaginal cream insert 0.5- (1G) by vaginal route twice weekly 08/27 completed Prescrib ed [facility] e: No Locat ion: [facility] odify By: amsebastián gunter DateTime : 03/31/19 07:04:54 PM Not Available Not Available Not Available bupropion HCl XL 300 mg 24 hr tablet, extended release active Not Available Not Available Not Available Cardizem 12/28 completed Not Available Not Available Not Available Vitamin D active Not Available Not Kristine ilable Not Available sodium,po tassium,m ag sulfates 17.5 gram-3.13 gram-1.6 gram oral soln TAKE DIRECTED PER DR KOCH WRITTEN INSTRUCT IONS THAT WERE MAILED TO YOU 01/20 completed Not Available Not Available Not Available Flowflex COVID-19 Antigen Home Test kit 12/28 completed Not Available Not Available Not Available Vitals Date Recorded Body height Body mass index (BMI) Body weight Systolic blood pressure Diastolic blood pressure Provider Name and Address Organization Details Last Updated DateTime 12/26/2020 172.72 cm 28 kg/m2 29550 g 129 mm[Hg] 82 mm[Hg] Daisy Doyle [facility] 1 17:29:35 Date Recorded Body height Body mass index (BMI) Body weight Systolic blood pressure Diastolic blood pressure Provider Name and Address Organization Details Last Updated DateTime 12/28/2021 172.72 cm 28.7 kg/m2 96927.24 g 121 mm[Hg] 79 mm[Hg] Darby Mejia [facility] 2 17:06:55 Date Recorded Body height Systolic blood pressure Diastolic blood pressure Provider Name and Address Organization Details Last Updated DateTime 01/22/2022 172.72 cm 119 mm[Hg] 77 mm[Hg] Darby Mejia [facility] 01/22/2022 17:11:43 Date Recorded Body height Body mass index (BMI) Body weight Systolic blood pressure Diastolic blood pressure Provider Name and Address Organization Details Last Updated DateTime 01/02/2023 172.72 cm 31 kg/m2 67974.13 g 126 mm[Hg] 78 mm[Hg] Sylvia Fernandez [facility] 3 17:14:37 Date Recorded Body height Body mass index (BMI) Body weight Systolic blood pressure Diastolic blood pressure Provider Name and Address Organization Details Last Updated DateTime 01/21/2024 172.72 cm 31.5 kg/m2 73123.62 g 121 mm[Hg] 82 mm[Hg] Kaitlin Jerez [facility] 4 09:46:02 Social History Question Answer Notes LastModified by Organizat ion Details LastModified Time Tobacco Smoking Status Never Smoker Deepika Wolf [facility] 01/02/2023 16:56:19 Do You Have An Advance Directive? No Information n ot available 12/28/2021 What Is Your Level Of Alcohol Consumption? Occasional Information not available 12/26/2020 Are You Blind Or Do You Have Difficulty Seeing? No [email or web address] Information n ot available 12/26/2020 What Is Your Level Of Caffeine Consumption? Occasional [email or web address] Information not available 12/26/2020 How Much Tobacco Do You Chew? None [email or web address] Information not available 12/26/2020 In The 14 Days Before Symptom Onset, Have You Had Close Contact With A Laboratory-confirm ed COVID-19 While That Case Was Ill? No Information n ot available 12/28/2021 In The 14 Days Before Symptom Onset, Have You Had Close Contact With A Person Who Is Under Investigation For COVID-19 While That Person Was Ill? No Information not available 12/28/2021 Have You Been To An Area Known To Be High Risk For COVID-19? No Information not available 12/26/2020 Are You Deaf Or Do You Have Serious Difficulty Hearing? No [email or web address] Information not available 12/26/2020 What Type Of Diet Are You Following? REGULAR Information n ot available 12/28/2021 What Is The Highest Grade Or Level Of School You Have Completed Or The Highest Degree You Have Received? [id number] [email or web address] Information not available 12/26/2020 Do You Use Protection During Sex? No [email or web address] Information not available 12/26/2020 Do You Use Your Seat Belt Or Car Seat Routinely? Yes [email or web address] Information not available 12/26/2020 Do You Have Smoke And Carbon Monoxide Detectors In Your Home? Yes Information not available 12/26/2020 How Much Tobacco Do You Smoke? No [email or web address] Information not available 12/26/2020 Do You Feel Stressed (tense, Restless, Nervous, Or Anxious, Or Unable To Sleep At Night)? [id number] [email or web address] Information not available 12/26/2020 Do You Use Any Illicit Or Recreational Drugs? No [email or web address] Information not available 12/26/2020 Do You Use Sunscreen Routinely? No [email or web address] Information not available 12/26/2020 Have You Used IV Drugs? No Information not available 12/26/2020 Sex: Unknown Functional Status Question Answer Note LastModified by Organizat ion Details LastModified Time Do you have difficulty walking or climbing stairs? No [email or web address] Information not available 01/02/2023 Are you able to walk? [email or web address] Information not available 12/28/2021 Are you able to care for yourself? Yes [email or web address] Information not available 01/02/2023 Do you have difficulty dressing or bathing? No Information not available 01/02/2023 What is your exercise level? Occasional [email or web address] Information not available 12/26/2020 Mental Status None recorded. Family History Relationship Description Onset Age of this Age Resolved Age Notes LastModified by Organization Details LastModified Time Sister Cyst of ovary [email or web address] Not available 2020 15:17:29 Sister Malignant tumor of colon [email or web address] Not available 2023 09:50:41 Mother Cyst of ovary [email or web address] Not available 2020 15:17:29 Notes:Cancer risk form compl ete 12/12/2020 Medical History Condition Response Anxiety Disorder Y Heart Disease Y Osteoporosis Y Gynecological History Statement/Question Response Abnormal Pap Y Date of Last Mammogram 06/03/2023 Date of LMP 03/04/1999 N HPV Vaccine N 07/02/2020 Current Control Method Hysterectom y Age at First Child 21 Most Recent Bone Density 10/16/2022 Date of Last Pap Smear 01/22/2022 Sexual Problems? N Desired Control Method None LMP Definite 03/04/2013 N Obstetrics History GPAL:G 1 P 1 0 0 1 Type Value Full Term 1 Living 1 Total 1 Past Encounters Encounter ID Performer Location Encounter Start Date Encounter Closed Date Diagnosis/Indication Diagnosis SNOMED-CT Code Diagnosis ICD10 Code Diagnosis Note [id number] Rafia Damon [place] [address] [address] 12/26/2020 17:10:47 12/27/2020 19:44:40 Gynecologic examination [id number] Z01.419 Z11.51 Take Calcium with Vitamin D 12-1500mg daily. Do monthly self breast exams. It is advised to get annual flu shot in the fall and she could obtain at [facility] or [facility]. If you haven't received the Tdap vaccine in the last 10 years you should obtain one as well. Have mammogram yearly, bone density every 2-3 years and colonoscop y every 5-10 years depending on findings and history. Engage in daily exercise of low impact aerobic exercise 45-60 minutes 4-5 times weekly. Avoid tobacco and illicit drugs as well as using moderation with alcohol intake less than 1-2 8 oz beverages daily. This lifestyle behavior pattern will lead to less health conditions and longer life span. If BMI greater than 25 weight watchers or dietary consult advised. Discussed pap recommenda tions. Pt desires d/t history of hpv. Questions have been answered. Patient appears to understand instructio ns, but if you have any further questions call or respond to this email. Thyroid nodule 772116506 E04.1 Labs today. Order given for u/s. Pt will call us 2 business days after imaging to ensure we received the results. [id number] MARYAM Garcia [place] [address] [address] 12/28/2021 16:48:36 12/28/2021 17:56:52 Gynecologic examination [id number] Z01.419 Take Calcium with Vitamin D 12-1500mg daily. Do monthly self breast exams. It is advised to get annual flu shot in the fall and she could obtain at [facility] or [facility] care clinic. If you haven't received the Tdap vaccine in the last 10 years you should obtain one as well. Have mammogram yearly, bone density every 2-3 years and colonoscop y every 5-10 years depending on findings and history. Engage in daily exercise of low impact aerobic exercise 45-60 minutes 4-5 times weekly. Avoid tobacco and illicit drugs as well as using moderation with alcohol intake less than 1-2 8 oz beverages daily. This lifestyle behavior pattern will lead to less health conditions and longer life span. If BMI greater than 25 weight watchers or dietary consult advised. Questions have been answered. Patient appears to understand instructio ns, but if you have any further questions call or respond to this email WWEHx of hysterecto my, ovaries remain in 1999. Patient states reason was for abnormal cells - unsure of location of abnormal cells. States was told it was non-cancer ous.Hx of HPV (+) on vaginal pap in 2016Last pap 2020 NILM, HR HPV (-)We discussed given normal pap in 2020 - pap smear not needed today. Patient would like pap smear to be done. She is concerned about the (+) HPV in 2016. We discussed HPV in-depth.P ap done per patient preference STI testing declinedFo llows with [facility] for mammograms yearlyUTD with PCPRTC in 1 year or sooner if needed Osteoporosis [id number] M8 1.0 Follows with [facility] bone clinic for prolia injections Q 6 months, states her dexas have improved greatly since starting the injections . 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 Referral sent for full body skin check [id number] MARYAM Garcia [place] [address] [address] 01/22/2022 17:07:06 01/23/2022 12:13:44 Screening for malignant neoplasm of vagina [id number] Z12.72 Repeat pap - no charge visit [id number] MARYAM Garcia [place] [address] [address] 01/02/2023 16:55:37 01/14/2023 14:26:17 Gynecologic examination 11087413 Z01.419 WWEno pap today per asccp guidelines STI testing declinedma mmogram UTD (yearly at [facility])co lonoscopy UTDUTD with PCP for routine labsRTC in 1 yr or sooner if needed Take Calcium with Vitamin D daily. Do monthly self breast exams. It is advised to get annual flu shot in the fall and she could obtain at [facility] or [facility] care clinic. If you haven't received the Tdap vaccine in the last 10 years you should obtain one as well. Have mammogram yearly, bone density every 2-3 years and colonoscop y every 5-10 years depending on findings and history. Engage in daily exercise of low impact aerobic exercise 45-60 minutes 4-5 times weekly. Avoid tobacco and illicit drugs as well as using moderation with alcohol intake less than 1-2 8 oz beverages daily. This lifestyle behavior pattern will lead to less health conditions and longer life span. If BMI greater than 25 dietary consult advised. Questions have been answered. Patient appears to understand instructio ns, but if you have any further questions call or respond to this email Osteoporosis [id number] M8 1.0 prolia injection managed by [facility] [email or web address] [id number] DAKOTA OVERTON NP [place] [address] [address] 01/21/2024 09:27:06 01/21/2024 10:15:10 Gynecologic examination [id number] Z01.419 Annual gynecologi anna exam performed. Patient will come back in a year unless there are new symptoms. Suggest Calcium with Vitamin D if not eating in diet. Patient advised to get annual flu shot. Recommend yearly physicals and perform monthly breast exams. Genetic testing is available for patients with family history of cancer. Engage in safe sexual practices, use condoms. Encouraged to have daily exercise. Avoid tobacco and illicit drugs, moderation of alcohol. If BMI greater than 25 dietary consult advised. If you have any questions please call or email. mammogram- Pt has yearly mammograms at [facility] - scheduled 06/29/24 colon cancer screening - UTD PCP, q5 years d/t FH DEXA scan- UTD (2022 - showed osteopenia ) - pt followed by [facility] for Prolia injections -Patient states that Prolia injections improved bone density to osteopenia instead of osteoporos is Pap smear- UTD (2021- WNL), will repeat next year per ASCCP guidelines . laboratory evaluation - PCP STI testing - declined Health Concerns Section Related Observation LastModified by Organization Detai ls LastModified Time None Recorded Concern Status LastModified by Organization Details LastModified Time None Recorded Advance Directives Directive N: Payers Encounter Date Sequence Insurance Name Policy Number Policy Calles Covered Member ID Calles Member ID Guarantor Name 12/26/2020 1 [place] [id number] S Dayami S Foster [id number] Dayami Foster 12/28/2021 1 [place] [id number] S Dayami S Foster [id number] Dayami Foster 01/22/2022 1 [place] [id number] S Dayami S Foster [id number] Dayami Foster 01/02/2023 1 [place] [id number] S Dayami S Foster [id number] Dayami Foster 01/21/2024 1 [facility] [id number] Dayami S Foster [id number] Dayami Foster Notes Date Note Type Note Provider Name and Address Organization Details Recorded Time 12/26/2020 text/html Annual GYNReport ed bypatient.Urinary symptoms:No hematuria; No incontinence Vulva:No genital lesion Vagina:Normal vaginal discharge Breast:No breast pain; No breast lump; No nipple discharge Sexual complaints:No sexual complaints; No pain during intercourse; Normal libido Menopausal Symptoms:No menopausal symptoms; Normal vaginal lubrication Psychological symptoms:No depression; No anxiety; No PMDD Hyst in 1999. Not sure of exact reason but thinks it may have been done d/t an abnormal pap. HPV on pap in 2017 and pt states she was not aware until her annual last year. Rafia chaetham [facility] 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.Menopaus al Symptoms:no menopausal symptoms; normal vaginal lubrication Vaginal Bleeding:history of menopause having occurred; no history of post menopausal bleeding Urinary Symptoms:no hematuria; no incontinence; no nocturia; no urinary frequency Vulva:no genital lesion; no vulvar atrophy Vagina:normal vaginal discharge; no vaginal atrophy Breast:no breast lump; no nipple discharge; no breast pain Sexual Complaints:no sexual complaints Psychological Symptoms:no depression; no anxiety Preventive Measures:encourage regular mammograms starting age 40; encourage self breast examination; encourage regular exercise; encourage no tobacco use; mammogram performed within the past year; history of recent colonoscopy MARYAM Garcia [address], [place], [address], [facility] 12/28/2021 17:52:19 01/22/2022 text/html Here for repeat pap due to insufficient cells MARYAM Garcia [address], [place], [address], [facility] 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 Patient states reason was for abnormal cells - unsure of location of abnormal cells. States was told it was non-cancerous.Hx of HPV (+) on vaginal pap in 2016pap 2020 NILM, HR HPV (-)pap 2021 NILM, HR HPV (-) Follows with [facility] bone clinic for prolia injections mammogram yearly at [facility] MARYAM Garcia [address], [place], [address], [facility] 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.Menopaus al Symptoms:no menopausal symptoms; normal vaginal lubrication Vaginal Bleeding:history of menopause having occurred; no history of post menopausal bleeding Urinary Symptoms:no hematuria; no incontinence; no nocturia; no urinary frequency Vulva:no genital lesion; no vulvar atrophy Vagina:normal vaginal discharge; no vaginal atrophy Breast:no breast lump; no nipple discharge; no breast pain Sexual Complaints:no sexual complaints Psychological Symptoms:no depression; no anxiety Preventive Measures:encourage regular mammograms starting age 40; encourage self breast examination; encourage regular exercise; encourage no tobacco use; mammogram performed within the past year; history of recent colonoscopy Patient presents for annual well woman exam. Patient denies concerns today.Hx hyst for noncancerous indications. DAKOTA OVERTON NP [address], [place], [address], [facility] 01/21/2024 10:13:26 OBGyn Episode Ob Episode Information Episode Created Date Number of Fetuses Patient Bloodtype Patient rh Status Prepregnancy Weight lbs Domestic Partner Domestic Partner Phone Father Name Coat Tailor Status 12/24/19 21 1 CLOSED Fetus Data First Name Last Name Admitted to NICU Weight (g) Sex Living Outcome Pediatric Complications Fetus ID Race Codes Race Delivery Type 3401.94 M Full Term [id number] Vaginal Delivery Jose Calculation Initial Jose Date Initial Exam Date Initial Exam Provider Initial Ultrasound Date Last Menstrual Period Date Ultra Sound Weeks Gestation 0 Eighteen To Twenty Week Jose Update Ultra Sound Date Fundal Height At Umbil Quickening Date Ultra Sound Latest Weeks Gestation Final Jose Confirmed By Final Jose Confirmed Date Final Jose Date Ultra Sound Latest Days Gestation 0 0 Menstrual History Last Menstrual Date Menses Monthly On Bcp Conception Prior Menses Frequency Hcg Plus Date Menarche Onset Age Delivery Information Delivery Date Delivery Type Labor Anesthesia Weeks Gestation Incision Type Labor Labor Length Hrs Delivered By Post Complications Tubal Sterilization Discharge Date Comments 7 Discharge Information Feeding Method Contraceptive Method Maternal HG B and HCT Levels
--- OUTSIDE RECORDS SUMMARY | 2024-04-03 13:19 | XMS_ITS | Data Portability ---
Author Organization [facility], Main Office Address [address] [place] [address] Assessment No assessment recorded. Plan of Treatment Reminders Order Date Submit Date Provider Last Modified By Organization Details Last Modified Time Details Appointments New Patient 15 2024 03:30P Allyson Hoang DPM Not available Not available Not available Lab vitamin D, 25-hydrox y, total, serum 2022 023 [facility], [address] [place], [address], 07/26/2022 08:56:23 lipid panel, serum 2022 023 [facility], [address] [place], [address], 07/26/2022 08:56:19 CMP, serum or plasma 2022 023 [facility], [address] [place], [address], 07/26/2022 08:56:20 TSH, serum or plasma 2022 023 [facility], [address] [place], [address], 07/26/2022 08:56:23 T4, free, serum 2022 023 [facility], [address] [place], [address], 07/26/2022 08:56:22 CBC w/ auto diff 2022 023 [facility], [address] [place], [address], 07/26/2022 08:56:21 lipid panel, serum 2022 023 [email or web address] [facility], [address] [place], [address], 11/29/2022 14:52:38 lipid panel, serum 2023 024 [facility], [address] [place], [address], 05/01/2023 05:52:59 CMP, serum or plasma 2023 024 [facility], [address] [place], [address], 05/01/2023 05:53:00 TSH, serum or plasma 2023 024 [facility], [address] [place], [address], 05/01/2023 05:53:04 T4, free, serum 2023 024 [facility], [address] [place], [address], 05/01/2023 05:53:03 CBC w/ auto diff 2023 024 [facility], [address] [place], [address], 05/01/2023 05:53:01 HbA1c (hemoglob in A1c), blood 2023 024 [facility], [address] [place], [address], 10/31/2023 00:51:30 lipid panel, serum 2023 024 [facility], [address] [place], [address], 10/31/2023 00:51:27 CMP, serum or plasma 2023 024 [facility], [address] [place], [address], 10/31/2023 00:51:28 TSH, serum or plasma 2023 024 [facility], [address] [place], [address], 10/31/2023 00:51:29 T4, free, serum 2023 024 [facility], [address] [place], [address], 10/31/2023 00:51:29 CBC w/ auto diff 2023 024 [facility], [address] [place], [address], 10/31/2023 00:51:28 Referral None recorded. Procedures None recorded. Surgeries None recorded. Imaging None recorded. Medication Orders tramadol 50 mg tablet 2024 025 [facility], [address] [place], [address], 03/17/2024 17:19:00 Patient TargetsNo targets recorded. Patient Instructions Encounter Date Encounter Id Patient Instructions Last Modified By Organization Details Last Modified Time 07/19/2022 [id number] risk assessment* [email or web address] Not availabl e 07/19/2022 12:30:09 INFLUENZA VACCIN E TD/TDAP Recommended today, patient declined Ordered Pat ient will get at local pharmacy/health department PNEUMONIA VACCINE Ordered Recommended today, patient declined Patient will get at local pharmacy/health department Recommend ed at age 63 SHINGLES Ordered Recommended today, patient declined Patient will get at local pharmacy/health department MAMMOGRAM: Last Mammogram DEXA SCAN CERVICAL SCREENING/PELVIC EXAMINATION Recommended today, but patient declined Ordered No screening necessary patient is up to date COLORECTAL SCREENING: Last Colonoscopy DEPRESSION SCREENING Negative BMI Overweight continue your current weight loss efforts try to lose 5% of your body weight try to lose 10% of your body weight NUTRITION PHYSICAL ACTIVITY VISION ALCOHOL USE No alcohol use Occasional/Socia l Use TOBACCO USE LUNG CANCER SCREENING Non Smoker-not indicated SEXUALLY ACTIVE HEPATITIS C SCREENING Not indicated GLUCOSE SCREENING LIPID SCREENING [email or web address] Not available 07/19/2022 12:20:10 Adult health evaluation risk assessment stable. Will check blood work consisting of CBC, CMP, lipid, thyroid and vitamin-D level. Does need a bone density scan. Not due for colonoscopy at this juncture. Recommended to start on some omeprazole 20 mg once daily will set up for upper endoscopy for possible esophageal stricture. Otherwise appears to be doing reasonably well. No evidence any glossopharyngeal regurgitation. No other systemic complaints. Follow up in her regular scheduled appointment in October. DEXA scan Set up for upper endoscopy for dysphagia [email or web address] Not available 07/19/2022 12:29:53 10/24/2022 [id number] Follow-up for hyperlipidemia-SVT- cirrhosis- GERD -obesity class one. Will continue with current Rx. Will recheck the lipid panel approximately four weeks. Will continue on current Rx otherwise. Follow-up in six months Portions of the record may have been created with voice recognition software. Occasional wrong-word or ? s ound-a-like? substitutions may have occurred due to the inherent limitations of voice recognition software. Read the chart carefully and recognize, using context, where substitutions have occurred. [email or web address] Not available 10/24/2022 17:26:56 04/24/2023 [id number] SVT, hyperlipide tutu, GERD and obesity class two all clinically stable. Check blood work consisting of CBC, CMP, lipid and thyroid. S had a colonoscopy which was negative. Is overdue on a bone density scan. Will set up for bone density scan continue on current Rx and follow-up in six months. Portions of the record may have been created with voice recognition software. Occasional wrong-word or ? s ound-a-like? substitutions may have occurred due to the inherent limitations of voice recognition software. Read the chart carefully and recognize, using context, where substitutions have occurred. Bone density scan Next Appt: 6 Months Approximate Date: 10/21/2023 [email or web address] Not available 04/24/2023 17:10:30 10/23/2023 [id number] advance care planning: care instructions Not available 10/23/2023 17:18:10 advance directiv es: care instructions [email or web address] Not available 10/23/2023 17:18:09 [place] Advance Directives [email or web address] Not available 10/23/2023 17:18:10 risk assessment* [email or web address] Not available 10/23/2023 17:18:10 INFLUENZA VACCIN E TD/TDAP Recommended today, patient declined Ordered Pat ient will get at local pharmacy/health department PNEUMONIA VACCINE Ordered Recommended today, patient declined Patient will get at local pharmacy/health department Recommend ed at age 63 SHINGLES Ordered Recommended today, patient declined Patient will get at local pharmacy/health department MAMMOGRAM: Last Mammogram DEXA SCAN CERVICAL SCREENING/PELVIC EXAMINATION Recommended today, but patient declined Ordered No screening necessary patient is up to date COLORECTAL SCREENING: Last Colonoscopy DEPRESSION SCREENING Negative BMI Overweight continue your current weight loss efforts try to lose 5% of your body weight try to lose 10% of your body weight NUTRITION PHYSICAL ACTIVITY VISION ALCOHOL USE No alcohol use Occasional/Socia l Use TOBACCO USE LUNG CANCER SCREENING Non Smoker-not indicated SEXUALLY ACTIVE HEPATITIS C SCREENING Not indicated GLUCOSE SCREENING LIPID SCREENING [email or web address] Not available 10/23/2023 17:05:28 03/17/2024 [id number] Lumbar radiculopathy, hyperlipidemia, history of osteoporosis, obesity class one and history of SVT. Clinically doing well. Will check a MRI of the lumbar spine for further evaluation. All as obtain x-rays of the right foot and ankle. Will give a trial tramadol. For one week to see if there is any improvement this has been going on for couple months now. It is causing a great deal disability and that she can not perform her daily activities at work or at home Without extreme difficulty. Follow-up in two weeks Additional Orders - Directives - Recommendations 1. MRI of the lumbar spine without contrast 2. x-ray of the right ankle and foot 3. x-ray of the right hip and pelvisAdditional Orders - Directives - Recommendations 1. DEXA Scan 2. INFLUENZA Follow Up: 2 Weeks Approximate Date: 03/31/2024 Portions of the record may have been created with voice recognition software. Occasional wrong-word or ? s ound-a-like? substitutions may have occurred due to the inherent limitations of voice recognition software. Read the chart carefully and recognize, using context, where substitutions have occurred. Created: Edu Scott M.D. 03.17.2024 04:19 PM [email or web address] Not available 03/17/2024 17:19:08 Reason for Referral None Reported. Results Created Date Observation Date Name Description Value Unit Range Abnormal Flag Note LastModifiedBy Organization Detail LastModifiedTime 07/26/1907/26/2022 LIPID PANEL , STAND LOIDA cholesterol, total 174 mg/dL <200 normal Not Available [address] [address] [place], [address], 07/26/2022 08:56:19 07/26/1907/26/2022 LIPID PANEL , STAND LOIDA HDL cholesterol 67 mg/dL > or = 50 normal Not Available [facility] [address] [address] [place], [address], 07/26/2022 08:56:19 07/26/1907/26/2022 LIPID PANEL , STAND LOIDA triglyceride s 63 mg/dL <150 normal Not Available [facility] [address] [place], [address], 07/26/2022 08:56:19 07/26/1907/26/2022 LIPID PANEL , STAND LOIDA LDL-choleste rol 92 mg/dL _(joshua c) normal Refer ence range : <100 Meliza able range <100 mg/dL for prima ry preve ntion ; <70 mg/dL for patie nts with CHD or diabe tic patie nts with > or = 2 CHD risk facto rs. LDL-C is now calcu lated using the Zakiya n-Hop kins calcu latkaycee n, which is a valid ated novel ceceo d akiko matos aclos than the Fried roni equat ion in the estim ation of LDL-C . Zakiya n SS et al. SAURAV. 2013; 310(1 9): 2061- 2068 (http ://ed ucati on.[employer] [facility]. com/f aq/FA Q164) Not Available [facility] [address] [address] [place], [address], 07/26/2022 08:56:19 07/26/1907/26/2022 LIPID PANEL , STAND LOIDA chol/HDLC ratio 2.6 (calc ) <5.0 normal Not Available [facility] [address] [address] [place], [address], 07/26/2022 08:56:19 07/26/1907/26/2022 LIPID PANEL , STAND LOIDA non HDL cholesterol 107 mg/dL _(joshua c) <130 normal For patie nts with diabe john plus 1 major ASCVD risk facto r, treat ing to a non-H DL-C goal of <100 mg/dL (LDL- C of <70 mg/dL ) is consi dered a thera peuti c optio n. Not Available [facility] [address] [address] [place], [address], 07/26/2022 08:56:19 07/26/1907/26/2022 COMPR EHENS UYEN METAB OLIC PANEL glucose 101 mg/dL 65-99 high Fasti ng refer ence inter sherlyn For someo ne witho ut known diabe john, a gluco se value betwe en 100 and 125 mg/dL is consi stent with predi abete s and shoul d be confi rmed with a follo w-up test. Not Available [facility] [address] [address] [place], [address], 07/26/2022 08:56:20 07/26/1907/26/2022 COMPR EHENS UYEN METAB OLIC PANEL urea nitrogen (BUN) 20 mg/dL 7-25 normal Not Available [facility] [address] [address] [place], [address], 07/26/2022 08:56:20 07/26/19 23 07/26/2022 COMPR EHENS UYEN METAB OLIC PANEL creatinine 0.84 mg/dL 0.50-1 .03 normal Not Available [address], [address], 07/26/2022 08:56:20 07/26/19 23 07/26/2022 COMPR EHENS UYEN METAB OLIC PANEL eGFR 80 mL/mi n/1.7 3m2 > or = 60 normal The eGFR is based on the CKD-E PI 2020 equat ion. To calcu late the new eGFR from a previ ous Creat inine or Cysta tin C resul t, go to https ://lety vela.o alexandra/yuliana gress kyraal s/ kdoqi /gfr% 5Fcal culat or Not Available [address], [address], 07/26/2022 08:56:20 07/26/19 23 07/26/2022 COMPR EHENS UYEN METAB OLIC PANEL BUN/creatini ne ratio NOT APPLIC ABLE (calc ) 6-22 Not Available [address], [address], 07/26/2022 08:56:20 07/26/19 23 07/26/2022 COMPR EHENS UYEN METAB OLIC PANEL sodium 138 mmol/ L 135-14 6 normal Not Available [address], [address], 07/26/2022 08:56:20 07/26/19 23 07/26/2022 COMPR EHENS UYEN METAB OLIC PANEL potassium 4.1 mmol/ L 3.5-5. 3 normal Not Available [address], [address], 07/26/2022 08:56:20 07/26/19 23 07/26/2022 COMPR EHENS UYEN METAB OLIC PANEL chloride 103 mmol/ L 98-110 normal Not Available [address], [address], 07/26/2022 08:56:20 07/26/19 23 07/26/2022 COMPR EHENS UYEN METAB OLIC PANEL carbon dioxide 29 mmol/ L 20-32 normal Not Available [address], [address], 07/26/2022 08:56:20 07/26/19 23 07/26/2022 COMPR EHENS UYEN METAB OLIC PANEL calcium 9.0 mg/dL 8.6-10 .4 normal Not Available [address], [address], 07/26/2022 08:56:20 07/26/19 23 07/26/2022 COMPR EHENS UYEN METAB OLIC PANEL protein, total 6.7 g/dL 6.1-8. 1 normal Not Available [address], [address], 07/26/2022 08:56:20 07/26/19 23 07/26/2022 COMPR EHENS UYEN METAB OLIC PANEL albumin 4.5 g/dL 3.6-5. 1 normal Not Available [address], [address], 07/26/2022 08:56:20 07/26/19 23 07/26/2022 COMPR EHENS UYEN METAB OLIC PANEL globulin 2.2 g/dL_ (calc ) 1.9-3. 7 normal Not Available [address], [address], 07/26/2022 08:56:20 07/26/19 23 07/26/2022 COMPR EHENS UYEN METAB OLIC PANEL albumin/glob ulin ratio 2.0 (calc ) 1.0-2. 5 normal Not Available [address] [place], [address], 07/26/2022 08:56:20 07/26/19 23 07/26/2022 COMPR EHENS UYEN METAB OLIC PANEL bilirubin, total 0.3 mg/dL 0.2-1. 2 normal Not Available [address], [address], 07/26/2022 08:56:20 07/26/19 23 07/26/2022 COMPR EHENS UYEN METAB OLIC PANEL alkaline phosphatase 54 U/L 37-153 normal Not Available [address], [address], 07/26/2022 08:56:20 07/26/1907/26/2022 COMPR EHENS UYEN METAB OLIC PANEL AST 23 U/L 10-35 normal Not Available [address], [address], 07/26/2022 08:56:20 07/26/19 23 07/26/2022 COMPR EHENS UYEN METAB OLIC PANEL ALT 24 U/L 6-29 normal Not Available [address], [address], 07/26/2022 08:56:20 07/26/1907/26/2022 CBC (INCL UDES DIFF/ PLT) white blood cell count 7.4 thous and/u L 3.8-10 .8 normal Not Available [address], [address], 07/26/2022 08:56:21 07/26/19 23 07/26/2022 CBC (INCL UDES DIFF/ PLT) red blood cell count 4.41 scott on/uL 3.80-5 .10 normal Not Available [address], [address], 07/26/2022 08:56:21 07/26/19 23 07/26/2022 CBC (INCL UDES DIFF/ PLT) hemoglobin 14.1 g/dL 11.7-1 5.5 normal Not Available [address], [address], 07/26/2022 08:56:21 07/26/1907/26/2022 CBC (INCL UDES DIFF/ PLT) hematocrit 42.3 % 35.0-4 5.0 normal Not Available [address], [address], 07/26/2022 08:56:21 07/26/1907/26/2022 CBC (INCL UDES DIFF/ PLT) MCV 95.9 fL 80.0-1 00.0 normal Not Available [address], [address], 07/26/2022 08:56:21 07/26/1907/26/2022 CBC (INCL UDES DIFF/ PLT) MCH 32.0 pg 27.0-3 3.0 normal Not Available [address], [address], 07/26/2022 08:56:21 07/26/1907/26/2022 CBC (INCL UDES DIFF/ PLT) MCHC 33.3 g/dL 32.0-3 6.0 normal Not Available [address], [address], 07/26/2022 08:56:21 07/26/1907/26/2022 CBC (INCL UDES DIFF/ PLT) RDW 11.8 % 11.0-1 5.0 normal Not Available [address], [address], 07/26/2022 08:56:21 07/26/1907/26/2022 CBC (INCL UDES DIFF/ PLT) platelet count 252 thous and/u L 140-40 0 normal Not Available [address], [address], 07/26/2022 08:56:21 07/26/1907/26/2022 CBC (INCL UDES DIFF/ PLT) MPV 10.8 fL 7.5-12 .5 normal Not Available [address], [address], 07/26/2022 08:56:21 07/26/19 23 07/26/2022 CBC (INCL UDES DIFF/ PLT) absolute neutrophils 5232 cells /uL 1500-7 800 normal Not Available [facility] [address], [address], 07/26/2022 08:56:21 07/26/1907/26/2022 CBC (INCL UDES DIFF/ PLT) absolute lymphocytes 1539 cells /uL 850-39 00 normal Not Available [address], [address], 07/26/2022 08:56:21 07/26/19 23 07/26/2022 CBC (INCL UDES DIFF/ PLT) absolute monocytes 533 cells /uL 200-95 0 normal Not Available [address], [address], 07/26/2022 08:56:21 07/26/19 23 07/26/2022 CBC (INCL UDES DIFF/ PLT) absolute eosinophils 67 cells /uL 15-500 normal Not Available [address], [address], 07/26/2022 08:56:21 07/26/19 23 07/26/2022 CBC (INCL UDES DIFF/ PLT) absolute basophils 30 cells /uL 0-200 normal Not Available [address], [address], 07/26/2022 08:56:21 07/26/19 23 07/26/2022 CBC (INCL UDES DIFF/ PLT) neutrophils 70.7 % normal Not Available [address], [address], 07/26/2022 08:56:21 07/26/19 23 07/26/2022 CBC (INCL UDES DIFF/ PLT) lymphocytes 20.8 % normal Not Available [address], [address], 07/26/2022 08:56:21 07/26/19 23 07/26/2022 CBC (INCL UDES DIFF/ PLT) monocytes 7.2 % normal Not Available [address], [address], 07/26/2022 08:56:21 07/26/19 23 07/26/2022 CBC (INCL UDES DIFF/ PLT) eosinophils 0.9 % normal Not Available [address], [address], 07/26/2022 08:56:21 07/26/19 23 07/26/2022 CBC (INCL UDES DIFF/ PLT) basophils 0.4 % normal Not Available [address], [address], 07/26/2022 08:56:21 07/26/19 23 07/26/2022 T4, FREE T4, free 1.2 NG/dL 0.8-1. 8 normal Not Available [address], [address], 07/26/2022 08:56:22 07/26/19 23 07/26/2022 TSH TSH 2.02 mIU/L 0.40-4 .50 normal Not Available [address], [address], 07/26/2022 08:56:23 07/26/19 23 07/26/2022 VITAM IN D,25- OH,TO FREDDIE,I A vitamin D,25-oh,tota l,ia 67 NG/mL 30-100 normal Vitam in D Statu s 25-OH Vitam in D: Defic iency : <20 ng/mL Insuf ficie ncy: 20 - 29 ng/mL Optim al: > or = 30 ng/mL For 25-OH Vitam in D testi ng on patie nts on D2-hansen pplem entat ion and patie nts for whom quant itati on of D2 and D3 fract ions is requi red, the [facility] e[facility](TM ) 25-OH VIT D, (D2,D 3), LC/MS /MS is recom kelle d: order code 60013 (jose ents >2yrs ). See Note 1 Note 1 For addit ional infor carey torrez refer to http: //[facility] lela Ricoia gnost ics.c om/fa q/FAQ 199 (This link is being provi ded for infor mili mora/ jolly araujo purpo ses only. ) Not Available [address], [address], 07/26/2022 08:56:23 04/25/19 24 04/26/2023 URINA LYSIS , COMPL ETE W/REF MADELIN TO CULTU RE color YELLOW yellow normal Not Available [address], [address], 04/26/2023 02:37:31 04/25/19 24 04/26/2023 URINA LYSIS , COMPL ETE W/REF MADELIN TO CULTU RE appearance CLEAR clear normal Not Available [facility] [address], [address], 04/26/2023 02:37:31 04/25/19 24 04/26/2023 URINA LYSIS , COMPL ETE W/REF MADELIN TO CULTU RE specific gravity 1.009 1.001- 1.035 normal Not Available [address], [address], 04/26/2023 02:37:31 04/25/19 24 04/26/2023 URINA LYSIS , COMPL ETE W/REF MADELIN TO CULTU RE pH 7.5 5.0-8. 0 normal Not Available [address], [address], 04/26/2023 02:37:31 04/25/19 24 04/26/2023 URINA LYSIS , COMPL ETE W/REF MADELIN TO CULTU RE glucose NEGATI VE negati ve normal Not Available [address], [address], 04/26/2023 02:37:31 04/25/19 24 04/26/2023 URINA LYSIS , COMPL ETE W/REF MADELIN TO CULTU RE bilirubin NEGATI VE negati ve normal Not Available [address], [address], 04/26/2023 02:37:31 04/25/19 24 04/26/2023 URINA LYSIS , COMPL ETE W/REF MADELIN TO CULTU RE ketones NEGATI VE negati ve normal Not Available [address], [address], 04/26/2023 02:37:31 04/25/19 24 04/26/2023 URINA LYSIS , COMPL ETE W/REF MADELIN TO CULTU RE occult blood NEGATI VE negati ve normal Not Available [address], [address], 04/26/2023 02:37:31 04/25/19 24 04/26/2023 URINA LYSIS , COMPL ETE W/REF MADELIN TO CULTU RE protein NEGATI VE negati ve normal Not Available [address], [address], 04/26/2023 02:37:31 04/25/19 24 04/26/2023 URINA LYSIS , COMPL ETE W/REF MADELIN TO CULTU RE nitrite NEGATI VE negati ve normal Not Available [address] [address] [place], [address], 04/26/2023 02:37:31 04/25/19 24 04/26/2023 URINA LYSIS , COMPL ETE W/REF MADELIN TO CULTU RE leukocyte esterase NEGATI VE negati ve normal Not Available [address] [address] [place], [address], 04/26/2023 02:37:31 04/25/19 24 04/26/2023 URINA LYSIS , COMPL ETE W/REF MADELIN TO CULTU RE WBC NONE SEEN /hpf < or = 5 normal Not Available [address], [address], 04/26/2023 02:37:31 04/25/19 24 04/26/2023 URINA LYSIS , COMPL ETE W/REF MADELIN TO CULTU RE RBC NONE SEEN /hpf < or = 2 normal Not Available [address] [address] [place], [address], 04/26/2023 02:37:31 04/25/19 24 04/26/2023 URINA LYSIS , COMPL ETE W/REF MADELIN TO CULTU RE squamous epithelial cells NONE SEEN /hpf < or = 5 normal Not Available [address] [address] [place], [address], 04/26/2023 02:37:31 04/25/19 24 04/26/2023 URINA LYSIS , COMPL ETE W/REF MADELIN TO CULTU RE bacteria NONE SEEN /hpf none seen normal Not Available [address] [address] [place], [address], 04/26/2023 02:37:31 04/25/19 24 04/26/2023 URINA LYSIS , COMPL ETE W/REF MADELIN TO CULTU RE hyaline cast NONE SEEN /lpf none seen normal Not Available [address], [address], 04/26/2023 02:37:31 04/25/19 24 04/26/2023 URINA LYSIS , COMPL ETE W/REF MADELIN TO CULTU RE note This urine was praveena zed for the prese nce of WBC, RBC, bacte hugh, casts , and other forme d eleme nts. Only those eleme nts seen were repor raman. Not Available [address], [address], 04/26/2023 02:37:31 04/25/19 24 04/26/2023 REFLE XIVE URINE CULTU RE reflexive urine culture NO CULTU RE INDIC ATED Not Available [address], [address], 04/26/2023 02:37:33 04/30/19 24 05/01/2023 LIPID PANEL , STAND LOIDA cholesterol, total 161 mg/dL <200 normal Not Available [address], [address], 05/01/2023 05:52:58 04/30/19 24 05/01/2023 LIPID PANEL , STAND LOIDA HDL cholesterol 69 mg/dL > or = 50 normal Not Available [address], [address], 05/01/2023 05:52:58 04/30/19 24 05/01/2023 LIPID PANEL , STAND LOIDA triglyceride s 52 mg/dL <150 normal Not Available [address] [place], [address], 05/01/2023 05:52:58 04/30/19 24 05/01/2023 LIPID PANEL , STAND LOIDA LDL-choleste rol 79 mg/dL _(joshua c) normal Refer ence range : <100 Meliza able range <100 mg/dL for prima ry preve ntion ; <70 mg/dL for patie nts with CHD or diabe tic patie nts with > or = 2 CHD risk facto rs. LDL-C is now calcu lated using the Zakiya n-Hop kins calcu christalkaycee n, which is a valid ated novel maria g patel accur acy than the Fried roni equat ion in the estim ation of LDL-C . Zakiya astudillo SS et al. SAURAV. 2013; 310(1 9): 2061- 2068 (http ://ed ucati on.[employer]. com/f aq/FA Q164) Not Available [facility] [address] [address] [place], [address], 05/01/2023 05:52:58 04/30/1905/01/2023 LIPID PANEL , STAND LOIDA chol/HDLC ratio 2.3 (calc ) <5.0 normal Not Available [facility] [address] [address] [address], [place], [address], 05/01/2023 05:52:58 04/30/19 24 05/01/2023 LIPID PANEL , STAND LOIDA non HDL cholesterol 92 mg/dL _(joshua c) <130 normal For patie nts with diabe john plus 1 major ASCVD risk facto r, treat ing to a non-H DL-C goal of <100 mg/dL (LDL- C of <70 mg/dL ) is consi dered a thera peuti c optio n. Not Available [facility] [address] [address] [place], [address], 05/01/2023 05:52:58 04/30/1905/01/2023 COMPR EHENS UYEN METAB OLIC PANEL glucose 122 mg/dL 65-99 high Fasti ng refer ence inter sherlyn For someo ne witho ut known diabe john, a gluco se value betwe en 100 and 125 mg/dL is consi stent with predi abete s and shoul d be confi rmed with a follo w-up test. Not Available [facility] [address] [address] [place], [address], 05/01/2023 05:53:00 04/30/19 24 05/01/2023 COMPR EHENS UYEN METAB OLIC PANEL urea nitrogen (BUN) 17 mg/dL 7-25 normal Not Available [address], [address], 05/01/2023 05:53:00 04/30/19 24 05/01/2023 COMPR EHENS UYEN METAB OLIC PANEL creatinine 1.01 mg/dL 0.50-1 .05 normal Not Available [address], [address], 05/01/2023 05:53:00 04/30/19 24 05/01/2023 COMPR EHENS UYEN METAB OLIC PANEL eGFR 64 mL/mi n/1.7 3m2 > or = 60 normal Not Available [address], [address], 05/01/2023 05:53:00 04/30/19 24 05/01/2023 COMPR EHENS UYEN METAB OLIC PANEL BUN/creatini ne ratio SEE NOTE: (calc ) 6-22 Not Repor raman: BUN and Creat inine are withi n refer ence range . Not Available [address], [address], 05/01/2023 05:53:00 04/30/19 24 05/01/2023 COMPR EHENS UYEN METAB OLIC PANEL sodium 141 mmol/ L 135-14 6 normal Not Available [address], [address], 05/01/2023 05:53:00 04/30/19 24 05/01/2023 COMPR EHENS UYEN METAB OLIC PANEL potassium 4.0 mmol/ L 3.5-5. 3 normal Not Available [address], [address], 05/01/2023 05:53:00 04/30/19 24 05/01/2023 COMPR EHENS UYEN METAB OLIC PANEL chloride 103 mmol/ L 98-110 normal Not Available [address], [address], 05/01/2023 05:53:00 04/30/19 24 05/01/2023 COMPR EHENS UYEN METAB OLIC PANEL carbon dioxide 30 mmol/ L 20-32 normal Not Available [address], [address], 05/01/2023 05:53:00 04/30/19 24 05/01/2023 COMPR EHENS UYEN METAB OLIC PANEL calcium 9.7 mg/dL 8.6-10 .4 normal Not Available [address], [address], 05/01/2023 05:53:00 04/30/19 24 05/01/2023 COMPR EHENS UYEN METAB OLIC PANEL protein, total 6.9 g/dL 6.1-8. 1 normal Not Available [address], [address], 05/01/2023 05:53:00 04/30/19 24 05/01/2023 COMPR EHENS UYEN METAB OLIC PANEL albumin 4.6 g/dL 3.6-5. 1 normal Not Available [address], [address], 05/01/2023 05:53:00 04/30/19 24 05/01/2023 COMPR EHENS UYEN METAB OLIC PANEL globulin 2.3 g/dL_ (calc ) 1.9-3. 7 normal Not Available [address], [address], 05/01/2023 05:53:00 04/30/19 24 05/01/2023 COMPR EHENS UYEN METAB OLIC PANEL albumin/glob ulin ratio 2.0 (calc ) 1.0-2. 5 normal Not Available [address] [place], [address], 05/01/2023 05:53:00 04/30/19 24 05/01/2023 COMPR EHENS UYEN METAB OLIC PANEL bilirubin, total 0.4 mg/dL 0.2-1. 2 normal Not Available [address], [address], 05/01/2023 05:53:00 04/30/19 24 05/01/2023 COMPR EHENS UYEN METAB OLIC PANEL alkaline phosphatase 59 U/L 37-153 normal Not Available [address], [address], 05/01/2023 05:53:00 04/30/19 24 05/01/2023 COMPR EHENS UYEN METAB OLIC PANEL AST 20 U/L 10-35 normal Not Available [address], [address], 05/01/2023 05:53:00 04/30/19 24 05/01/2023 COMPR EHENS UYEN METAB OLIC PANEL ALT 23 U/L 6-29 normal Not Available [address], [address], 05/01/2023 05:53:00 04/30/19 24 05/01/2023 CBC (INCL UDES DIFF/ PLT) white blood cell count 5.6 thous and/u L 3.8-10 .8 normal Not Available [address], [address], 05/01/2023 05:53:01 04/30/19 24 05/01/2023 CBC (INCL UDES DIFF/ PLT) red blood cell count 4.53 scott on/uL 3.80-5 .10 normal Not Available [address], [address], 05/01/2023 05:53:01 04/30/19 24 05/01/2023 CBC (INCL UDES DIFF/ PLT) hemoglobin 14.4 g/dL 11.7-1 5.5 normal Not Available [address], [address], 05/01/2023 05:53:01 04/30/19 24 05/01/2023 CBC (INCL UDES DIFF/ PLT) hematocrit 43.7 % 35.0-4 5.0 normal Not Available [address], [address], 05/01/2023 05:53:01 04/30/19 24 05/01/2023 CBC (INCL UDES DIFF/ PLT) MCV 96.5 fL 80.0-1 00.0 normal Not Available [address], [address], 05/01/2023 05:53:01 04/30/19 24 05/01/2023 CBC (INCL UDES DIFF/ PLT) MCH 31.8 pg 27.0-3 3.0 normal Not Available [address], [address], 05/01/2023 05:53:01 04/30/19 24 05/01/2023 CBC (INCL UDES DIFF/ PLT) MCHC 33.0 g/dL 32.0-3 6.0 normal Not Available [address], [address], 05/01/2023 05:53:01 04/30/19 24 05/01/2023 CBC (INCL UDES DIFF/ PLT) RDW 11.6 % 11.0-1 5.0 normal Not Available [address], [address], 05/01/2023 05:53:01 04/30/19 24 05/01/2023 CBC (INCL UDES DIFF/ PLT) platelet count 271 thous and/u L 140-40 0 normal Not Available [address], [address], 05/01/2023 05:53:01 04/30/19 24 05/01/2023 CBC (INCL UDES DIFF/ PLT) MPV 11.1 fL 7.5-12 .5 normal Not Available [address], [address], 05/01/2023 05:53:01 04/30/19 24 05/01/2023 CBC (INCL UDES DIFF/ PLT) absolute neutrophils 3606 cells /uL 1500-7 800 normal Not Available [address], [address], 05/01/2023 05:53:01 04/30/19 24 05/01/2023 CBC (INCL UDES DIFF/ PLT) absolute lymphocytes 1445 cells /uL 850-39 00 normal Not Available [address], [address], 05/01/2023 05:53:01 04/30/19 24 05/01/2023 CBC (INCL UDES DIFF/ PLT) absolute monocytes 420 cells /uL 200-95 0 normal Not Available [address], [address], 05/01/2023 05:53:01 04/30/19 24 05/01/2023 CBC (INCL UDES DIFF/ PLT) absolute eosinophils 101 cells /uL 15-500 normal Not Available [address], [address], 05/01/2023 05:53:01 04/30/19 24 05/01/2023 CBC (INCL UDES DIFF/ PLT) absolute basophils 28 cells /uL 0-200 normal Not Available [address], [address], 05/01/2023 05:53:01 04/30/19 24 05/01/2023 CBC (INCL UDES DIFF/ PLT) neutrophils 64.4 % normal Not Available [address], [address], 05/01/2023 05:53:01 04/30/19 24 05/01/2023 CBC (INCL UDES DIFF/ PLT) lymphocytes 25.8 % normal Not Available [facility] [address], [address], 05/01/2023 05:53:01 04/30/19 24 05/01/2023 CBC (INCL UDES DIFF/ PLT) monocytes 7.5 % normal Not Available [facility] [address], [address], 05/01/2023 05:53:01 04/30/19 24 05/01/2023 CBC (INCL UDES DIFF/ PLT) eosinophils 1.8 % normal Not Available [address], [address], 05/01/2023 05:53:01 04/30/19 24 05/01/2023 CBC (INCL UDES DIFF/ PLT) basophils 0.5 % normal Not Available [facility] [address], [address], 05/01/2023 05:53:01 04/30/19 24 05/01/2023 T4, FREE T4, free 1.3 NG/dL 0.8-1. 8 normal Not Available [address], [address], 05/01/2023 05:53:03 04/30/19 24 05/01/2023 TSH TSH 2.16 mIU/L 0.40-4 .50 normal Not Available [address], [address], 05/01/2023 05:53:04 10/30/19 24 10/30/2023 LIPID PANEL , STAND LOIDA cholesterol, total 162 mg/dL <200 normal Not Available [facility] [address] [place], [address], 10/31/2023 00:51:27 10/30/19 24 10/30/2023 LIPID PANEL , STAND LOIDA HDL cholesterol 64 mg/dL > or = 50 normal Not Available [facility] [address] [place], [address], 10/31/2023 00:51:27 10/30/19 24 10/30/2023 LIPID PANEL , STAND LOIDA triglyceride s 71 mg/dL <150 normal Not Available [facility] [address] [place], [address], 10/31/2023 00:51:27 10/30/19 24 10/30/2023 LIPID PANEL , STAND LOIDA LDL-choleste rol 83 mg/dL _(joshua c) normal Refer ence range : <100 Meliza able range <100 mg/dL for prima ry preve ntion ; <70 mg/dL for patie nts with CHD or diabe tic patie nts with > or = 2 CHD risk facto rs. LDL-C is now calcu lated using the Zakiya astudillo-Hop kaushik carvajal n, which is a valid ated novel maria g patel accur acy than the Fried roni equat ion in the estim ation of LDL-C . Zakiya astudillo SS et al. SAURAV. 2013; 310(1 9): 2061- 2068 (http ://ed ucati on.Qu Kodi sheth Zefancl[employer]. com/f aq/FA Q164) Not Available [facility] [address] [place], [address], 10/31/2023 00:51:27 10/30/19 24 10/30/2023 LIPID PANEL , STAND LOIDA chol/HDLC ratio 2.5 (calc ) <5.0 normal Not Available [facility] [address] [place], [address], 10/31/2023 00:51:27 10/30/19 24 10/30/2023 LIPID PANEL , STAND LOIDA non HDL cholesterol 98 mg/dL _(joshua c) <130 normal For patie nts with diabe john plus 1 major ASCVD risk facto r, treat ing to a non-H DL-C goal of <100 mg/dL (LDL- C of <70 mg/dL ) is andreei carlos gaviria optio n. Not Available [address] [place], [address], 10/31/2023 00:51:27 10/30/19 24 10/30/2023 COMPR EHENS UYEN METAB OLIC PANEL glucose 87 mg/dL 65-99 normal Fasti ng refer ence inter sherlyn Not Available [address] [place], [address], 10/31/2023 00:51:28 10/30/19 24 10/30/2023 COMPR EHENS UYEN METAB OLIC PANEL urea nitrogen (BUN) 19 mg/dL 7-25 normal Not Available [address], [address], 10/31/2023 00:51:28 10/30/19 24 10/30/2023 COMPR EHENS UYEN METAB OLIC PANEL creatinine 0.93 mg/dL 0.50-1 .05 normal Not Available [address], [address], 10/31/2023 00:51:28 10/30/19 24 10/30/2023 COMPR EHENS UYEN METAB OLIC PANEL eGFR 70 mL/mi n/1.7 3m2 > or = 60 normal Not Available [facility] [address], [address], 10/31/2023 00:51:28 10/30/19 24 10/30/2023 COMPR EHENS UYEN METAB OLIC PANEL BUN/creatini ne ratio SEE NOTE: (calc ) 6-22 Not Repor raman: BUN and Creat inine are withi n refer ence range . Not Available [address] [address] [place], [address], 10/31/2023 00:51:28 10/30/19 24 10/30/2023 COMPR EHENS UYEN METAB OLIC PANEL sodium 138 mmol/ L 135-14 6 normal Not Available [address], [address], 10/31/2023 00:51:28 10/30/19 24 10/30/2023 COMPR EHENS UYEN METAB OLIC PANEL potassium 4.0 mmol/ L 3.5-5. 3 normal Not Available [facility] [address], [address], 10/31/2023 00:51:28 10/30/19 24 10/30/2023 COMPR EHENS UYEN METAB OLIC PANEL chloride 102 mmol/ L 98-110 normal Not Available [address] [address] [place], [address], 10/31/2023 00:51:28 10/30/19 24 10/30/2023 COMPR EHENS UYEN METAB OLIC PANEL carbon dioxide 28 mmol/ L 20-32 normal Not Available [address], [address], 10/31/2023 00:51:28 10/30/19 24 10/30/2023 COMPR EHENS UYEN METAB OLIC PANEL calcium 9.7 mg/dL 8.6-10 .4 normal Not Available [facility] [address] [address] [place], [address], 10/31/2023 00:51:28 10/30/19 24 10/30/2023 COMPR EHENS UYEN METAB OLIC PANEL protein, total 6.9 g/dL 6.1-8. 1 normal Not Available [address] [place], [address], 10/31/2023 00:51:28 10/30/19 24 10/30/2023 COMPR EHENS UYEN METAB OLIC PANEL albumin 4.7 g/dL 3.6-5. 1 normal Not Available [address], [address], 10/31/2023 00:51:28 10/30/19 24 10/30/2023 COMPR EHENS UYEN METAB OLIC PANEL globulin 2.2 g/dL_ (calc ) 1.9-3. 7 normal Not Available [address], [address], 10/31/2023 00:51:28 10/30/19 24 10/30/2023 COMPR EHENS UYEN METAB OLIC PANEL albumin/glob ulin ratio 2.1 (calc ) 1.0-2. 5 normal Not Available [address], [address], 10/31/2023 00:51:28 10/30/19 24 10/30/2023 COMPR EHENS UYEN METAB OLIC PANEL bilirubin, total 0.4 mg/dL 0.2-1. 2 normal Not Available [address], [address], 10/31/2023 00:51:28 10/30/19 24 10/30/2023 COMPR EHENS UYEN METAB OLIC PANEL alkaline phosphatase 57 U/L 37-153 normal Not Available [address], [address], 10/31/2023 00:51:28 10/30/19 24 10/30/2023 COMPR EHENS UYEN METAB OLIC PANEL AST 18 U/L 10-35 normal Not Available [address], [address], 10/31/2023 00:51:28 10/30/19 24 10/30/2023 COMPR EHENS UYEN METAB OLIC PANEL ALT 18 U/L 6-29 normal Not Available [address], [address], 10/31/2023 00:51:28 10/30/19 24 10/30/2023 CBC (INCL UDES DIFF/ PLT) white blood cell count 4.9 thous and/u L 3.8-10 .8 normal Not Available [address], [address], 10/31/2023 00:51:28 10/30/19 24 10/30/2023 CBC (INCL UDES DIFF/ PLT) red blood cell count 4.60 scott on/uL 3.80-5 .10 normal Not Available [address], [address], 10/31/2023 00:51:28 10/30/19 24 10/30/2023 CBC (INCL UDES DIFF/ PLT) hemoglobin 14.7 g/dL 11.7-1 5.5 normal Not Available [address], [address], 10/31/2023 00:51:28 10/30/19 24 10/30/2023 CBC (INCL UDES DIFF/ PLT) hematocrit 44.5 % 35.0-4 5.0 normal Not Available [address], [address], 10/31/2023 00:51:28 10/30/19 24 10/30/2023 CBC (INCL UDES DIFF/ PLT) MCV 96.7 fL 80.0-1 00.0 normal Not Available [address], [address], 10/31/2023 00:51:28 10/30/19 24 10/30/2023 CBC (INCL UDES DIFF/ PLT) MCH 32.0 pg 27.0-3 3.0 normal Not Available [address], [address], 10/31/2023 00:51:28 10/30/19 24 10/30/2023 CBC (INCL UDES DIFF/ PLT) MCHC 33.0 g/dL 32.0-3 6.0 normal Not Available [address], [address], 10/31/2023 00:51:28 10/30/19 24 10/30/2023 CBC (INCL UDES DIFF/ PLT) RDW 11.9 % 11.0-1 5.0 normal Not Available [address], [address], 10/31/2023 00:51:28 10/30/19 24 10/30/2023 CBC (INCL UDES DIFF/ PLT) platelet count 241 thous and/u L 140-40 0 normal Not Available [address], [address], 10/31/2023 00:51:28 10/30/19 24 10/30/2023 CBC (INCL UDES DIFF/ PLT) MPV 11.2 fL 7.5-12 .5 normal Not Available [address], [address], 10/31/2023 00:51:28 10/30/19 24 10/30/2023 CBC (INCL UDES DIFF/ PLT) absolute neutrophils 2994 cells /uL 1500-7 800 normal Not Available [address], [address], 10/31/2023 00:51:28 10/30/19 24 10/30/2023 CBC (INCL UDES DIFF/ PLT) absolute lymphocytes 1289 cells /uL 850-39 00 normal Not Available [address], [address], 10/31/2023 00:51:28 10/30/19 24 10/30/2023 CBC (INCL UDES DIFF/ PLT) absolute monocytes 500 cells /uL 200-95 0 normal Not Available [facility] [address], [address], 10/31/2023 00:51:28 10/30/19 24 10/30/2023 CBC (INCL UDES DIFF/ PLT) absolute eosinophils 98 cells /uL 15-500 normal Not Available [facility] [address], [address], 10/31/2023 00:51:28 10/30/19 24 10/30/2023 CBC (INCL UDES DIFF/ PLT) absolute basophils 20 cells /uL 0-200 normal Not Available [facility] [address], [address], 10/31/2023 00:51:28 10/30/19 24 10/30/2023 CBC (INCL UDES DIFF/ PLT) neutrophils 61.1 % normal Not Available [facility] [address], [address], 10/31/2023 00:51:28 10/30/19 24 10/30/2023 CBC (INCL UDES DIFF/ PLT) lymphocytes 26.3 % normal Not Available [facility] [address], [address], 10/31/2023 00:51:28 10/30/19 24 10/30/2023 CBC (INCL UDES DIFF/ PLT) monocytes 10.2 % normal Not Available [facility] [address], [address], 10/31/2023 00:51:28 10/30/19 24 10/30/2023 CBC (INCL UDES DIFF/ PLT) eosinophils 2.0 % normal Not Available [facility] [address], [address], 10/31/2023 00:51:28 10/30/19 24 10/30/2023 CBC (INCL UDES DIFF/ PLT) basophils 0.4 % normal Not Available [facility] [address] [place], [address], 10/31/2023 00:51:28 10/30/19 24 10/30/2023 T4, FREE T4, free 1.2 NG/dL 0.8-1. 8 normal Not Available [facility] [address] [place], [address], 10/31/2023 00:51:29 10/30/19 24 10/30/2023 TSH TSH 2.05 mIU/L 0.40-4 .50 normal Not Available [facility] [address] [place], [address], 10/31/2023 00:51:29 10/30/19 24 10/30/2023 HEMOG LOBIN A1C hemoglobin A1C 5.9 %_of_ total _HGB <5.7 high For someo ne witho ut known diabe john, a hemog lobin A1c value betwe en 5.7% and 6.4% is consi stent with predi abete s and shoul d be confi rmed with a follo w-up test. For someo ne with known diabe john, a value <7% indic ates that their diabe john is well contr olled . A1c targe ts shoul d be indiv idual ized based on durat ion of diabe john, age, comor bid condi tions , and other consi derat ions. This assay resul t is consi stent with an incre ased risk of diabe john. Curre ntly, no conse nsus exist s regar ding use of hemog lobin A1c for diagn osis of diabe john for child magda. This test was perfo rmed on the Héctor daniel c503 platf orm. Effec tive , a manisha leonard in test platf orms from the [facility] t[facility] to the H[facility]ctor daniel c503 may have shift ed HbA1c resul ts marc red to histo rical resul ts. Based on labor atory valid ation testi ng condu cted at [facility] , the H[facility]ctor platf orm relat uyen to the [facility] platf orm had an avera ge incre ase in HbA1c value of < or = 0.3%. This diffe rence is withi n accep raman varia bilit y estab lishe d by the Vidal mora [employer] hemog lobin Stand jocelynez ation Progr am. Note that not all indiv idual s will have had a shift in their resul ts and direc t marc rison s betwe en histo rical and curre nt resul ts for testi ng condu cted on diffe rent platf orms is not recom kelle d. Not Available [facility] [address] [address] [address], [place], [address], 10/31/2023 00:51:30 01/12/2011/24/2022 lab* No observ ation record ed. [email or web address] Not Available 2022 08:14:18 03/21/19 25 03/21/2024 XR, ankle + foot No observ ation record ed. [email or web address] [place] [address] Imaging [address], [place], [address], 03/21/2024 15:59:38 03/21/1903/21/2024 XR, hip + pelvi s, unila teral No observ ation record ed. [email or web address] [place] [address] Imaging [address], [place], [address], 03/22/2024 10:12:54 Result Notes None recorded. Problems Name Problem SNOMED Code Status Onset Date Resolution Date Notes Provider Name and Address Organization Details Recorded Time Fracture of sacrum 308172537 Active 2016 Not Available [facility] 3 12:48:32 Chronic back pain 753475920 Active 2017 Not Available [facility] 3 12:48:32 Constipati on 66610987 Active Not Available [facility] 3 12:48:32 Lateral epicondyli tis 617619329 Active Not Available [facility] 3 12:48:32 Edema 235593562 Active Not Available [facility] 3 12:48:32 Pure hyperchole sterolemia 009719773 Active 2018 Not Available [facility] 3 12:48:32 Adult health examinatio n Active 2021 Not Available [facility] 3 12:48:33 Lower back injury 122273407 Active 2016 Not Available [facility] 3 12:48:33 Depressive disorder 61647875 Active Not Available [facility] 3 12:48:33 Cervical radiculopa thy 43202345 Active Not Available [facility] 3 12:48:33 Disorder of bursa of shoulder region 23481967 Active Not Available [facility] 3 12:48:33 Supraventr icular tachycardi a 5733871 Active Not Available [facility] 3 12:48:33 Osteoporos is 58033751 Active Not Available [facility] 3 12:48:33 Intermitte nt dysphagia 81782893 Active 2022 Janee [place], [place] [employer] [facility] [employer] 3 16:46:58 Pharyngiti s 495362613 Active 2022 Edu Scott MD [address], [address], [place], [address] , Monitoring Division [facility] [employer] [facility] [facility] 3 14:15:22 Gastroesop hageal reflux disease 300931772 Active 2022 Edu Scott MD [address], [address], [place], [address] , Monitoring Division S [employer] [facility] 3 17:18:40 Obese class I 9202466678161 07 Active 2022 Edu Scott MD [address], [address], [place], [address] , [facility] [employer] [facility] 3 17:20:45 Acute sinusitis 12453048 Active 2022 Edu Scott MD [address], [address], [place], [address] , [facility] - [facility] 3 14:53:38 Altered bowel function 18608852 Active 2023 Melinda Salgado CMA null, [place] - [facility] 4 11:37:01 Obese class II 3678764840238 05 Active 2023 Edu Scott MD [address], [address], [place], [address] , [facility] - [facility] 4 17:09:30 Acute urinary tract infection 023847873 Active 2023 Janee che[place], [place] - [facility] 4 17:13:30 Hyperglyce tutu 40838622 Active 2023 Edu Scott MD [address], [address], [place], [address] , [facility] - [facility] 4 17:17:34 Low back strain 561001266 Active 2023 Edu Scott MD [address], [address], [place], [address] , [facility] 4 13:09:20 Lumbar radiculopa thy 606568407 Active 2024 Edu Scott MD [address], [address], [place], [address] , [facility] 5 17:08:53 Pain of right ankle joint 0869757888542 9106 Active 2024 Janee cheatham, [facility] 5 17:20:24 Pain in right hip joint 9497683028423 02 Active 2024 Janee cheatham, [facility] 5 17:21:36 Fever 788142489 Active 2024 Melinda Salgado CMA null, [place] - [facility] 5 12:51:31 Problem Notes None recorded. Procedures Surgical History Date Name Laterality Status Provider Name and Address Organization Details Recorded Time 4 Advanced Care Planning completed Yuko Michaels RN [facility] 10/23/2023 17:03:06 Imaging Results Imaging Date Name Status LastModified by [facility] Details LastModified Time 11/24/2022 lab* completed [email or web address] Information no t available 01/12/2023 08:14:18 03/21/2024 XR, ankle + foot completed [facility] [address], [place], [address], 03/21/2024 15:59:38 03/21/2024 XR, hip + pelvis, unilateral completed [email or web address] [place] [address] Imaging [address], [place], [address], 03/22/2024 10:12:54 Procedure Notes None recorded. Medical Equipment None Reported. Allergies Allergen ID Allergen Name Allergen Category Reaction Reaction Severity Criticality Documentation Date Start Date Code Code System Note Provider Name and Address Organization Details Recorded Time 37965 codeine medicatio n nausea Not available Not available 05/02/2022 2670 RxNorm Not Available [facility] 12:51:56 Medications Name Sig Start Date Stop Date Status Note LastModified by Organization Details LastModified Time amoxicillin 500 mg capsule TAKE 1 CAPSULE BY MOUTH THREE TIMES DAILY FOR 10 DAYS 10/24 completed Not Available Not Available Not Available biotin 10 mg tablet Take 1 tablet every day by oral route. 08/22 completed Not Available Not Available Not Available atorvastati n 40 mg tablet TAKE 1 TABLET BY MOUTH ONCE DAILY active Not Available Not Available No t Available bupropion HCl SR 150 mg tablet,12 hr sustained-r elease TAKE 1 TABLET DAILY FOR ANXIETY AND DEPRESSIO N 01/29 completed Not Available Not Available Not Available potassium chloride ER 10 mEq capsule,ext ended release Take 1 capsule every day by oral route. 09/08 completed Not Available Not Available Not Available amiloride 5 mg-hydrochl orothiazide 50 mg tablet TAKE 1 TABLET ONCE A DAY active Not Available Not Available No t Available vitamin E 200 unit capsule Take 1 capsule every day by oral route. 02/22 completed Not Available Not Available Not Available doxycycline hyclate 100 mg capsule Take 1 capsule twice a day by oral route. 11/24 completed Not Available Not Available Not Available atorvastati n 20 mg tablet TAKE 1 TABLET BY MOUTH ONCE DAILY 05/25 completed Not Available Not Available Not Available Evista 60 mg tablet Take 1 tablet every day by oral route. 09/18 completed Not Available Not Available Not Available diltiazem ER 180 mg capsule,24 hr,extended release Take 1 capsule every day by oral route. active Not Available Not Available No t Available diltiazem CD 180 mg capsule,ext ended release 24 hr 03/17 completed Not Available Not Available Not Available hydrocodone 5 mg-acetamin ophen 325 mg tablet 12/28 completed Not Available Not Available Not Available Zithromax Z-Hema 250 mg tablet TAKE 2 TABLETS (500 MG) BY ORAL ROUTE ONCE DAILY FOR 1 DAY THEN 1 TABLET (250 MG) BY ORAL ROUTE ONCE DAILY FOR 4 DAYS 05/28 completed Not Available Not Available Not Available Diflucan 150 mg tablet Take 1 tablet every day by oral route. active Not Available Not Available No t Available potassium chloride ER 10 mEq tablet,exte nded release Take 1 tablet every day by oral route. active Not Available Not Available No t Available aspirin 81 mg tablet,carlos yed release Take 1 tablet every day by oral route. 2015 active Not Available Not Available Not Avai lable tramadol 50 mg tablet TAKE 1 TABLET BY MOUTH EVERY 6 HOURS active Not Available Not Available No t Available citalopram 20 mg tablet ONCE DAILY 02/06 completed Not Available Not Available Not Available MagOx 400 mg (241.3 mg magnesium) tablet Take 1 tablet every day by oral route. 2015 active Not Available Not Available Not Avai lable prednisolon e acetate 1 % eye drops,suspe nsion INSTILL 1 DROP INTO LEFT EYE 4 TIMES DAILY FOR 4 DAYS active Not Available Not Available No t Available baclofen 10 mg tablet Take 1 tablet 4 times a day by oral route. active Not Available Not Available No t Available hydrocodone 7.5 mg-acetamin ophen 325 mg tablet Take 1 tablet every 6 hours by oral route. 11/26 completed Not Available Not Available Not Available flecainide 50 mg tablet Take 1 tablet every 12 hours by oral route. active Not Available Not Available No t Available Valtrex 1 gram tablet Take 1 tablet 3 times a day by oral route. 02/06 completed Not Available Not Available Not Available diclofenac sodium 75 mg tablet,carlos yed release active Not Available Not Available Not Available cephalexin 500 mg tablet 09/08 completed Not Available Not Available Not Available diltiazem CD 120 mg capsule,ext ended release 24 hr Take 1 capsule every day by oral route. 04/24 completed Not Available Not Available Not Available zinc 50 mg tablet Take 1 tablet every day by oral route. 2015 active Not Available Not Available Not Avai lable furosemide 20 mg tablet Take 1 tablet every day by oral route. active Not Available Not Available No t Available lorazepam 1 mg tablet TAKE ONE TABLET BY MOUTH THREE TIMES DAILY 02/06 completed Not Available Not Available Not Available methylpredn isolone 4 mg tablets in a dose pack USE DIRECTED 03/17 completed Not Available Not Available Not Available amoxicillin 875 mg-potassiu m clavulanate 125 mg tablet TAKE 1 TABLET BY MOUTH EVERY 12 HOURS FOR 10 DAYS 04/24 completed Not Available Not Available Not Available Bactrim DS 800 mg-160 mg tablet Take 1 tablet every 12 hours by oral route. 02/22 completed Not Available Not Available Not Available risedronate 35 mg tablet Take 1 tablet every week by oral route. 08/18 completed Not Available Not Available Not Available moxifloxaci n 0.5 % eye drops INSTILL 1 DROP INTO THE LEFT EYE EVERY HOUR FOR 1 WEEK active Not Available Not Available No t Available bupropion HCl XL 300 mg 24 hr tablet, extended release TAKE 1 TABLET DAILY active Not Available Not Available No t Available bupropion HCl XL 150 mg 24 hr tablet, extended release Take 1 tablet every day by oral route. 04/04 completed Not Available Not Available Not Available Boniva 150 mg tablet Take 1 tablet every month by oral route. 08/22 completed Not Available Not Available Not Available Calcium 600 + D(3) once daily 10/24 completed Not Available Not Available Not Available Prolia 60 mg/mL subcutaneou s syringe Inject 1 mL by subcutane ous route. 10/27/ 2021 active Not Available Not Available Not Avai lable sodium,pota ssium,mag sulfates 17.5 gram-3.13 gram-1.6 gram oral soln TAKE DIRECTED PER DR KOCH WRITTEN INSTRUCTI ONS THAT WERE MAILED TO YOU active Not Available Not Available No t Available Os-Joshua 500 + D3 500 mg-15 mcg (600 unit) tablet Take 1 tablet twice a day by oral route. active Not Available Not Available No t Available Flowflex COVID-19 Antigen Home Test kit 04/25 completed Not Available Not Available Not Available Vitals Date Recorded Body height Provider Name an d Address Organization Details Last Updated DateTime 07/19/2022 172.72 cm [employer] 07/19/2022 12:13:20 Date Recorded Body mass index (BMI) Body weight Provider Name and Address Organization Details Last Updated DateTime 07/19/2022 30 kg/m2 78805.7 g [employer] 07/19/2022 12:13:27 Date Recorded Heart rate Provider Name an d Address Organization Details Last Updated DateTime 07/19/2022 68 /min [employer] 07/19/2022 12:13:34 Date Recorded Body temperature Provider Name a nd Address Organization Details Last Updated DateTime 07/19/2022 97 [degF] [employer] 07/19/2022 12:13:39 Date Recorded Oxygen saturation Oxygen saturation in Arterial blood by Pulse oximetry Provider Name and Address Organization Details Last Updated DateTime 07/19/2022 97 % 97 % [employer] 07/19/2022 12:13:41 Date Recorded Body height Provider Name an d Address Organization Details Last Updated DateTime 10/24/2022 172.72 cm [employer] 10/24/2022 17:00:25 Date Recorded Body mass index (BMI) Body weight Provider Name and Address Organization Details Last Updated DateTime 10/24/2022 30.6 kg/m2 96300.07 g [employer] 10/24/2022 17:00:36 Date Recorded Heart rate Provider Name an d Address Organization Details Last Updated DateTime 10/24/2022 98 /min Hermila Castaneda [place] - [facility] [employer] [facility] 10/24/2022 17:00:43 Date Recorded Body temperature Provider Name a nd Address Organization Details Last Updated DateTime 10/24/2022 97 [degF] Hermila Castaneda [place] - [facility] [employer] [facility] 10/24/2022 17:00:47 Date Recorded Oxygen saturation Oxygen saturation in Arterial blood by Pulse oximetry Provider Name and Address Organization Details Last Updated DateTime 10/24/2022 97 % 97 % Hermila Castaneda [place] - [facility] 10/24/2022 17:00:50 Date Recorded Body height Provider Name an d Address Organization Details Last Updated DateTime 04/24/2023 172.72 cm Hermila Castaneda [place] - [facility] 04/24/2023 16:56:49 Date Recorded Body mass index (BMI) Body weight Provider Name and Address Organization Details Last Updated DateTime 04/24/2023 32.5 kg/m2 67027.77 g Hermila Donovana [place] - [facility] 04/24/2023 16:56:55 Date Recorded Heart rate Provider Name an d Address Organization Details Last Updated DateTime 04/24/2023 81 /min Hermila Castaneda [place] - [facility] [employer] [facility] 04/24/2023 16:57:02 Date Recorded Body temperature Provider Name a nd Address Organization Details Last Updated DateTime 04/24/2023 97 [degF] Hermila Castaneda [place] - [facility] [employer] [facility] 04/24/2023 16:57:04 Date Recorded Oxygen saturation Oxygen saturation in Arterial blood by Pulse oximetry Provider Name and Address Organization Details Last Updated DateTime 04/24/2023 96 % 96 % Hermila Donovana [place] - [facility] 04/24/2023 16:57:06 Date Recorded Body height Provider Name an d Address Organization Details Last Updated DateTime 10/23/2023 172.72 cm KATERINE Kim [place] - [facility] 10/23/2023 16:53:34 Date Recorded Body mass index (BMI) Body weight Provider Name and Address Organization Details Last Updated DateTime 10/23/2023 31.2 kg/m2 67616.44 g KATERINE Kim [employer] [facility] 10/23/2023 16:53:39 Date Recorded Heart rate Provider Name an d Address Organization Details Last Updated DateTime 10/23/2023 82 /min KATERINE Kim [employer] [facility] 10/23/2023 16:53:47 Date Recorded Body temperature Provider Name a nd Address Organization Details Last Updated DateTime 10/23/2023 97.2 [degF] KATERINE Kim [employer] [facility] 10/23/2023 16:53:51 Date Recorded Oxygen saturation Oxygen saturation in Arterial blood by Pulse oximetry Provider Name and Address Organization Details Last Updated DateTime 10/23/2023 98 % 98 % KATERINE Kim [employer] [facility] 10/23/2023 16:53:53 Date Recorded Body height Provider Name an d Address Organization Details Last Updated DateTime 03/17/2024 171.45 cm Hermila Donovana [place] - [employer] 03/17/2024 17:01:23 Date Recorded Body mass index (BMI) Body weight Provider Name and Address Organization Details Last Updated DateTime 03/17/2024 32.4 kg/m2 38695.4 g Hermila IPM Francesharmina [employer] [facility] 03/17/2024 17:01:26 Date Recorded Heart rate Provider Name an d Address Organization Details Last Updated DateTime 03/17/2024 86 /min Hermila Donovana [place] - [employer] 03/17/2024 17:01:33 Date Recorded Body temperature Provider Name a nd Address Organization Details Last Updated DateTime 03/17/2024 97 [degF] Hermila Donovana [place] - [facility] 03/17/2024 17:01:42 Date Recorded Oxygen saturation Oxygen saturation in Arterial blood by Pulse oximetry Provider Name and Address Organization Details Last Updated DateTime 03/17/2024 96 % 96 % Hermila IPM Francesharmina [place] - [employer] [facility] 03/17/2024 17:01:47 Date Recorded Systolic blood pressure Diastolic blood pressure Provider Name and Address Organization Details Last Updated DateTime 07/19/2022 120 mm[Hg] 78 mm[Hg] Hermila Castaneda [employer] [facility] [employer] 07/19/2022 12:13:32 Date Recorded Systolic blood pressure Diastolic blood pressure Provider Name and Address Organization Details Last Updated DateTime 10/24/2022 138 mm[Hg] 78 mm[Hg] Hermila Castaneda [employer] [facility] [employer] 10/24/2022 17:00:40 Date Recorded Systolic blood pressure Diastolic blood pressure Provider Name and Address Organization Details Last Updated DateTime 04/24/2023 122 mm[Hg] 78 mm[Hg] Hermila Castaneda [employer] [facility] [employer] [facility] 04/24/2023 16:56:58 Date Recorded Systolic blood pressure Diastolic blood pressure Provider Name and Address Organization Details Last Updated DateTime 10/23/2023 138 mm[Hg] 80 mm[Hg] Rhea [facility] [employer] [facility] 10/23/2023 16:53:42 Date Recorded Systolic blood pressure Diastolic blood pressure Provider Name and Address Organization Details Last Updated DateTime 03/17/2024 120 mm[Hg] 84 mm[Hg] Hermila Castaneda [place] [employer] [facility] 03/17/2024 17:01:30 Social History None recorded. Functional Status None recorded. Mental Status None recorded. Family History Nothing Reported Notes:Mother living 80 [facility] hypertension, CAD and osteoporosis Biological History of coronary artery disease and pacemaker insertion Sisters two living One with a colonic neoplasm. Medical History Condition Response NERVE DISEASE N BLINDNESS N RHEUMATIC FEVER N KIDNEY STONES N BLADDER PROBLEMS N MRSA N OTHER # 1 N POLIO N LUNG DISEASE/DISORDER N RADIATION / CHEMOTHERAPY N COPD N Other # 2 N BLOOD DISEASES N SURGERY N EAR OR HEARING PROBLEMS N MUMPS N BOWEL PROBLEMS N DEPRESSION (INCLUDING POST ) Y STROKE/TIA N ULCERS N BENIGN PROSTATIC HYPERPLASIA N MEASLES N MYOCARDIAL INFARCTION N OBESITY N GERD/NAUSEA N ANEURYSM N URINARY/BLADDER/KIDNEY PROBLEMS N CORONARY ARTERY DISEASE (CAD) N ADDICTION CONCERNS N ENDOMETRIOSIS N Impotence N USE OF BLOOD THINNERS N SKIN PROBLEMS N GASTROINTESTINAL DISORDER N PERIPHERAL VASCULAR DISEASE N MUSCLE,JOINT OR BONE PROBLEMS N GASTROINTESTINAL BLEEDING N BLOOD CLOTS N ASTHMA N CATARACTS N ERECTILE DYSFUNCTION N VARICOSITIES N GI PROBLEMS N Low Testosterone N INFERTILITY N AIDS/HIV N CHEMOTHERAPY / RADIATION N LIVER DISEASE N MALE HYPOGONADISM N HYPERTENSION N Deficiency N ANXIETY DISORDER N BLOOD TRANSFUSION N ANEMIA/BLOOD DISORDER N CHRONIC EAR INFECTIONS N BRONCHITIS N TUBERCULOSIS N GLAUCOMA N FOOT PROBLEM N DIVERTICULITIS N SLEEP APNEA N CHICKENPOX N INFECTIOUS DISEASE N HEART ARRHYTHMIA N PROSTATE N INSOMNIA N HIGH CHOLESTEROL / HYPERLIPIDEMIA Y HYPERTHYROIDISM N EYE PROBLEMS N NEUROLOGICAL PROBLEMS N EDEMA Y CHRONIC PAIN SYNDROME N HYPOTHYROIDISM N CAROTID BLOCKAGE N CONSTIPATION N BACK / NECK PROBLEMS Y HAVE YOU BEEN HOSPITALIZED OR SEEN IN [facility] IN THE PAST YEAR ? N ATHEROSCLEROSIS N BREAST PROBLEMS N DIALYSIS N ECZEMA N OSTEOPOROSIS Y ARTHRITIS N NO SIGNIFICANT PAST MEDICAL HISTORY N APPENDICITIS N DIABETES, TYPE N BAD TEETH N ENT N HEARTBURN / REFLUX N AUTISM SPECTRUM DISORDER (ASD) N HEPATITIS / LIVER DISEASE N GOUT N SLEEP DISORDER N ALZHEIMER'S DISEASE N Brain Problems N HERPES N DEMENTIA N HEADACHES/MIGRAINES N SEIZURES/EPILEPSY N VASCULAR DISEASE N PACEMAKER N Blood Disorder N DIZZINESS N HEART DISEASE/HEART PROBLEMS N KIDNEY DISEASE N MULTIPLE SCLEROSIS N CARDIAC ARRHYTHMIA Y CANCER: SPECIFY N ATRIAL FIBRILLATION N Gall Stones N PULMONARY EMBOLISM N AUTOIMMUNE DISEASE N Gynecological HistoryNo gynecological history recorded. Obstetrics History GPAL:G 0 P 0 0 0 0 Immunizations Vaccine Type Date Status Note Provider Nam e and Address Organization Details Recorded Time Influenza, split virus, quadrivalent, preservative 1 completed Not Available [facility] 05/02/2022 12:51:50 influenza, unspecified formulation 2 completed Not Available [facility] 05/02/2022 12:51:50 Past Encounters Encounter ID Performer Location Encounter Start Date Encounter Closed Date Diagnosis/Indication Diagnosis SNOMED-CT Code Diagnosis ICD10 Code Diagnosis Note [id number] [facility] [address] [address] 05/25/2020 00:00:00 05/25/2020 17:42:31 [id number] [facility] [address] [address] 09/08/2020 00:00:00 09/08/2020 16:08:29 [id number] [facility] [address] [address] 09/28/2020 00:00:00 09/28/2020 17:19:34 [id number] [facility] [address] [place] [address] 10/26/2020 00:00:00 10/26/2020 17:17:19 [id number] [facility] [address] [address] 12/28/2020 00:00:00 12/28/2020 17:40:47 [id number] [facility] [address] [place] [address] [address] 05/03/2021 00:00:00 05/03/2021 17:33:58 [id number] [facility] [address] [place] [address] [address] 10/25/2021 00:00:00 10/25/2021 17:34:05 [id number] [facility] [address] [address] 04/25/2022 00:00:00 04/25/2022 17:03:01 [id number] Edu Scott MD [facility] [address] [place] [address] [address] 07/19/2022 12:06:58 07/19/2022 12:38:06 Adult health examination 987352285 Z00.00 Depression screening 171 300273 Z13.31 Pure hypercholesterolemia 538681879 E78.00 Supraventr icular tachycardia 5517158 I47.1 Osteoporosis 06929058 M8 1.0 [id number] Edu Scott MD [facility] [address] [address] 10/24/2022 16:51:24 10/24/2022 17:32:10 Pure hypercholesterolemia 128786305 E78.00 Gastroesop hageal reflux disease 126656778 K21.9 Supraventr icular tachycardia 5160513 I47.1 Osteoporosis 38146895 M8 1.0 Obese class I [id number] 05411 E66.9 [id number] Edu Scott MD [facility] [address] [address] 04/24/2023 16:45:00 04/24/2023 17:16:55 Gastroesophageal reflux disease 488292736 K21.9 Pure hypercholesterolemia 319211508 E78.00 Supraventr icular tachycardia 4109187 I47.10 Obese class II 548372614 1 90114 E66.9 [id number] Edu Scott MD [facility] Internal [facility] [address] [id number] 10/23/2023 16:49:07 10/23/2023 17:22:35 Adult health examination 152333339 Z00.00 Depression screening 171 413724 Z13.31 Gastroesop hageal reflux disease 666165986 K21.9 Pure hypercholesterolemia 861930708 E78.00 Supraventr icular tachycardia 1762400 I47.10 Osteoporosis 47488837 M8 1.0 Hyperglycemia 18770695 R 73.9 [id number] Edu Scott MD [facility] Internal [facility] [address] [address] 03/17/2024 16:40:35 03/17/2024 17:24:57 Pure hypercholesterolemia 150005474 E78.00 Osteoporosis 77837964 M8 1.0 Lumbar radiculopathy 128 048380 M54.16 Obese class I 3930637024 19163 E66.9 Health Concerns Section Related Observation LastModified by Organization Detai ls LastModified Time None Recorded Concern Status LastModified by Organization Details LastModified Time None Recorded Advance Directives Directive None Recorded Payers Encounter Date Sequence Insurance Name Policy Number Policy Calles Covered Member ID Calles Member ID Guarantor Name 07/19/2022 1 [place] [id number] S Dayami S Foster [id number] Dayami S Foster 10/24/2022 1 [place] [id number] S Dayami S Foster [id number] Dayami S Foster 04/24/2023 1 [facility] [id number] Dayami S Foster [id number] Dayami S Foster 10/23/2023 1 [facility] [id number] Dayami S Foster [id number] Dayami S Foster 03/17/2024 1 [facility] [id number] Dayami Prasad [id number] Dayami Prasad Notes Date Note Type Note Provider Name and Address Organization Details Recorded Time 3 text/html Patient Name: Dayami PrasadDate Of Service: July ( 07.19.2022 ): 1965 Age: 57 Vital Signs:Blood Pressure: Sitting Rt. Arm 120/78Pulse: Sitting 68 /min and RegularRespirations: 12Height 68 in or 1.7 mWeight 197 lb or 89.4 kgBMI 30.0Temperature: 97 F or 36.1 CPulse Oximetry: 97 % at rest on no oxygen Chief Complaint: Addressed in HPI Problems or conditions discussed in the HPI were the only ones reviewed during the encounter.Only social and family history addressed in the HPI were reviewed during this encounter. Attendant(s): None Constitutional and Systemic Symptoms: none and fever Medication Reconciliation: from medication list. History of Present Illness #1. Recent history of the last 4-6 weeks of intermittent dysphagia. Usually manifested by eating solid foods rather than liquid. Feels like the food gets hung up around the area the suprasternal notch. Does not cause any choking but has a hard time clearing at the time was had take additional fluid and normally feels it eventually go down. Denies any regurgitation. There is been no hematemesis. There has been no weight loss or other type of constitutional symptomatology. Is not taking any PPI inhibitors at this time.: #2. osteoporosis. No new complaints of any additional back,hip or other musculoskeletal complaints related to the osteoporosis. No hx of any recent trauma. Currently taking OsCal-D and Prolia. Has showed osteoporosis. The FRAX Score for Hip Fracture is NA hx osteoporosis FRAX score for major fractures NA hx of osteoporosis #3. Type II Hypercholesterolaemia: Currently taking medication and tolerating well. No interval complaints of any muscle pain or arthralgia. No significant liver changes with medications. Last lipid panel: fair control. Therapy reviewed regarding treatment of cholesterol management and include diet and Atorvastatin Calcium. #4. Hx of SVT currently stable. No interval change in frequency, duration or intensity of episodes. Has had none since the last visit. Tolerating medications well.Currently taking diltiazem as well as flecainide.Functional AbilityNormalActivities of Daily Living: able to bathe with limited or no assistance, able to control urination and bowels, able to dress with limited or no assistance, able to feed self with limited or no assistance, able to get out of chair or bed with limited or no assistance, able to groom with limited or no assistance, able to toilet with limited or no assistanceHearing: no loss of hearingVision: no vision problemsInstrumental Activities of Daily Living: able to do house work with limited or no assistance, able to grocery shop with limited or no assistance, able to manage medications with limited or no assistance, able to manage money with limited or no assistance, able to prepare meals with limited or no assistance, able to do laundry with limited or no assistance, able to use the phone independentlyMedication List Reviewed and Reconciled 07/19/2022Flecainide Acetate 50 MG (TABLET - ORAL) One BidWellbutrin Xl 300 MG (TABLET, EXTENDED RELEASE - ORAL) One DailyProlia 60 MG/ ML (INJECTABLE - SUBCUTANEOUS) Once Q 6 MonthsAtorvastatin Calcium 20 MG (TABLET - ORAL) One DailyCardizem Cd 120 MG (CAPSULE, EXTENDED RELEASE - ORAL) One DailyLasix 20 MG (TABLET - ORAL) DailyPotassium Chloride 10 MEQ (TABLET, EXTENDED RELEASE - ORAL) DailyOs-joshua D 600 DailyMag-ox 400 DailyVitamin E 200 DailyAtivan 1 MG (TABLET - ORAL) One Tid Prn For AnxietyVitamin D DailyOmega-3 DailyProbiotic DailyVaccination and Ussxdbinjmgx2143-33 InfluenzaSurgical HistoryBunionectomy, Vaginal Hysterectomy, SeptoplastyPreventative Testing Confirmed by Our Rfzhypi9906/25/2022 MAMMOGRAM / ALBUMIN 4.6 G/DL09/24/2019 CT [id number]/05/2018 DEXA SCAN03/31/2014 COLONOSCOPY (10 YEARS) 03/31/2024Social HistoryDoes not smokeDrinks sociallyWorks at a 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 This represents approximately a 10.4% change in weight. Weight change attributable to lifestyle changes. Vital Signs:Blood Pressure: Sitting Rt. Arm 138/78Pulse: Sitting 98 /min and RegularRespirations: 12Height 68 in or 1.7 mWeight 201 lb or 91.2 kgBMI 30.6Temperature: 97 F or 36.1 CPulse Oximetry: 97 % at rest on no oxygen Chief Complaint: Addressed in HPI Problems or conditions discussed in the HPI were the only ones reviewed during the encounter.Only social and family history addressed in the HPI were reviewed during this encounter. Attendant(s): None Constitutional and Systemic Symptoms: none Medication Reconciliation: from medication list. History of Present Illness #1. Type II Hypercholesterolaemia: Currently stopped medication independently because of lower leg pain and which did help resolve some discomfort. But has been on a for multiple years. Some interval complaints of any muscle pain or arthralgia. No significant liver changes with medications. Last lipid panel: fair control. Therapy reviewed regarding treatment of cholesterol management and include diet. #2. Hx of SVT currently stable. No interval change in frequency, duration or intensity of episodes. Has had none since the last visit. Tolerating medications well.Is taking Cardizem and flecainide by Cardiology. #3. Hx of esophageal reflux currently stable. Hx of Complications: none The severity, duration and intensity of symptoms have improved. Frequency: most meals Treatment consists medications taken on intermittent basis. Current therapy includes Omeprazole. There has been no nausea. No change in he frequency or intensity of symptoms. Has had no melena. Has had no hematemesis. Discuss the possibility of trying to reduce the frequency of the use of any PPI inhibitors or H2 antagonist to see if symptoms can be controlled with last intensive therapy #4. osteoporosis. No new complaints of any additional back,hip or other musculoskeletal complaints related to the osteoporosis. No hx of any recent trauma. Currently taking Os-joshua D and Prolia. Has has had a recent DEXA scan done within the last year. The FRAX Score for Hip Fracture is NA hx osteoporosis FRAX score for major fractures NA hx of osteoporosis #5. Hx of obesity. Currently Class 1 Obesity BMI 30-34.99. Has tried numerous dietary support and supplements with no benefit. Instructed on the health consequences of the obese status particularly cancer - diabetes and heart disease. Discussed new modalities of weight loss including GLP-1 medications that are used to treat diabetes. Potential candidate for bariatric surgery: No. Wishes to be evaluated by Dietary: No and was offered to be evaluated and instructed by agriscience instructor on weight loss diet.Medication List Reviewed and Reconciled 10/24/2022Flecainide Acetate 50 MG (TABLET - ORAL) One BidWellbutrin Xl 300 MG (TABLET, EXTENDED RELEASE - ORAL) One DailyProlia 60 MG/ ML (INJECTABLE - SUBCUTANEOUS) Once Q 6 MonthsAtorvastatin Calcium 20 MG (TABLET - ORAL) One Daily (On Hold)Cardizem Cd 120 MG (CAPSULE, EXTENDED RELEASE - ORAL) One DailyLasix 20 MG (TABLET - ORAL) DailyPotassium Chloride 10 MEQ (TABLET, EXTENDED RELEASE - ORAL) DailyOs-joshua D 600 DailyMag-ox 400 DailyVitamin E 200 DailyAtivan 1 MG (TABLET - ORAL) One Tid Prn For AnxietyVitamin D DailyOmega-3 DailyProbiotic DailyOmeprazole 20 MG CAPSULE, DELAYED RELEASE One DailyVaccination and Dtaaleyhxdsu2984-69 InfluenzaSurgical HistoryEsophageal Dilatation, Bunionectomy, Vaginal Hysterectomy, SeptoplastyPreventative Testing Confirmed by Our Pgqhtbx2708/08/2022 UPPER TDNVJZUSN67/24/2023 ALBUMIN 4.5 G/DL06/25/[address] [id number]/05/2018 DEXA SCAN03/31/2014 COLONOSCOPY (10 YEARS) 03/31/2024Social HistoryDoes not smokeDrinks sociallyWorks at a financialsFamily HistoryMother living 80 essential hypertension, CAD and osteoporosisBiological Father unknown health historySisters two living and in good healthMenarche 11 Menopause A Edu Scott MD [address] [facility], [facility] [address], [place], [address], [place] [facility] 10/24/2022 17:27:13 4 text/html Patient Name: Dayami PrasadDate Of Service: Saturday ( 04.24.2023 ): 1965 Age: 58 Chief Complaint: Addressed in HPI Problems or conditions discussed in the HPI were the only ones reviewed during the encounter.Only social and family history addressed in the HPI were reviewed during this encounter. Attendant(s): NoneConstitutional and Systemic Symptoms:none Medication Reconciliation: from medication list. History of Present Illness #1. Hx of SVT currently stable. No interval change in frequency, duration or intensity of episodes. Has had none since the last visit. Tolerating medications well. #2. Type II Hypercholesterolaemia: Currently taking medication and tolerating well. No interval complaints of any muscle pain or arthralgia. No significant liver changes with medications. Last lipid panel: fair control. Therapy reviewed regarding treatment of cholesterol management and include diet and Atorvastatin Calcium. #3. Hx of esophageal reflux currently stable. Hx of Complications: none The severity, duration and intensity of symptoms have improved. Frequency: most meals Treatment consists medications taken on a regular basis. Current therapy includes no medication. There has been no nausea, eructation, vomiting, hematemesis, dysphagia, velopharyngeal insufficiency and odynophagia. No change in he frequency or intensity of symptoms. Has had no melena. Has had no . Discussed use of H2 antagonists NA.#4. Obesity class two clinically stable. If suggest the possibility of using GLP-one inhibitors to see if the improvement and weight loss. Considering this. Has discussed this also with her paper cone grader as well. Active Medication ListFlecainide Acetate 50 MG (TABLET - ORAL) One BidWellbutrin Xl 300 MG (TABLET, EXTENDED RELEASE - ORAL) One DailyProlia 60 MG/ ML (INJECTABLE - SUBCUTANEOUS) Once Q 6 MonthsAtorvastatin Calcium 20 MG (TABLET - ORAL) One DailyCardizem Cd 180 MG CAPSULE, COATED, EXTENDED RELEASE One DailyLasix 20 MG (TABLET - ORAL) DailyPotassium Chloride 10 MEQ (TABLET, EXTENDED RELEASE - ORAL) DailyOs-joshua D 600 DailyMag-ox 400 DailyVitamin E 200 DailyVitamin D DailyOmega-3 DailyProbiotic Daily Vaccination and Yvneikkeulhg3418-12 Influenza Surgical Dkhnitx8487-24 Esophageal Aaqvhvqtcp1466-60 Jncgqcapxdvr9729-16 Vaginal Fnpocrttsahd3191-69 Septoplasty Preventative Testing Confirmed by Our Fibeonu8804/18/2023 COLONOSCOPY ( 5 YEARS ) UPPER XLHFPKBKD44/24/2023 ALBUMIN 4.5 G/DL N006/25/[address] ASRHLD5006/05/2018 DEXA SCAN Social HistoryDoes not smokeDrinks sociallyWorks at a financialsFamily HistoryMother living 80 essential hypertension, CAD and osteoporosisBiological Father unknown health historySisters two living and in good healthMenarche 9 Menopause A Edu Scott MD [address] [facility], [facility] [address], [place], [address], [facility] [place] 04/24/2023 17:10:53 4 text/html Patient Name: Dayami PrasadDate Of Service: Saturday ( 10.23.2023 ): 1965 Age: 58 There has been approximately a 9 lb weight loss since 04/24/2023. This represents approximately a 4.2% change in weight. Weight change attributable to lifestyle changes. Vital Signs:Blood Pressure: Sitting Rt. Arm 138/80Pulse: Sitting 82 /min and RegularRespiratory Rate: 14Height 68 in or 1.7 mWeight 205 lb or 93.0 kgBMI 31.2Temperature: 97.2 F or 36.2 CPulse Oximetry: 98 % at rest on no oxygen Chief Complaint: Addressed in HPI Problems or conditions discussed in the HPI were the only ones reviewed during the encounter.Only social and family history addressed in the HPI were reviewed during this encounter. Attendant(s): NoneConstitutional and Systemic Symptoms:none Medication Reconciliation: from medication list. History of Present Illness In for a well patient check up. Last well patient evaluation was approximately one year. No interval complaints of any major medical problems. No hx of any chest pain, shortness of breath, nausea, vomiting, diarrhea or constitutional symptoms. Also being followed for other chronically monitored problems.Has Had A Mammogram dueHas Had A Pap Smear dueImmunizations Up To Date or refuses to takeNo Significant Change In Family HxColonoscopy or Cologuard: not dueFall Risk normalDepression Score: 0Hearing normalVision normalReviewed Smoking and Drug HistoryReviewed Immunization HistoryInstructed on importance of weight on diabetes, heart and other diseases aggravated by obesity. #1. Hx of SVT currently stable. No interval change in frequency, duration or intensity of episodes. Has had none since the last visit. Tolerating medications well. #2. Type II Hypercholesterolaemia: Currently taking medication and tolerating well. No interval complaints of any muscle pain or arthralgia. No significant liver changes with medications. Last lipid panel: fair control. Therapy reviewed regarding treatment of cholesterol management and include diet and Atorvastatin Calcium. #3. Hx of esophageal reflux currently stable. Hx of Complications: none The severity, duration and intensity of symptoms have improved. Frequency: most meals Treatment consists medications taken on intermittent basis. Current therapy includes no medication. There has been no nausea, eructation, vomiting, hematemesis, dysphagia, velopharyngeal insufficiency and odynophagia. No change in he frequency or intensity of symptoms. Has had no melena. Has had no . Discussed use of H2 antagonists and the possibility of trying to reduce the frequency of the use of any PPI inhibitors and try H2 antagonists to see if symptoms can be controlled with lease intensive therapy since a number of complications are associated with chronic prolonged use of PPI inhibitors. #4. osteoporosis. No new complaints of any additional back,hip or other musculoskeletal complaints related to the osteoporosis. No hx of any recent trauma. Currently taking OsCal-D and Prolia. Has no DEXA scan for more than 1.5 years. The FRAX Score for Hip Fracture is NA hx osteoporosis FRAX score for major fractures NA hx of osteoporosis #5. Hx of obesity. Currently Class 2 Obesity BMI 35-39.99. Has tried numerous dietary support and supplements with no benefit. Instructed on the health consequences of the obese status particularly cancer - diabetes and heart disease. Discussed other modalities of weight loss GLP-1 medications that are used to treat diabetes. Potential candidate for bariatric surgery: No. Wishes to be evaluated by Dietary: No and was offered to be evaluated and instructed by agriscience instructor on weight loss diet. Active Medication ListFlecainide Acetate 50 MG (TABLET - ORAL) One BidWellbutrin Xl 300 MG (TABLET, EXTENDED RELEASE - ORAL) One DailyProlia 60 MG/ ML (INJECTABLE - SUBCUTANEOUS) Once Q 6 MonthsAtorvastatin Calcium 20 MG (TABLET - ORAL) One DailyCardizem Cd 180 MG CAPSULE, COATED, EXTENDED RELEASE One DailyLasix 20 MG (TABLET - ORAL) DailyPotassium Chloride 10 MEQ (TABLET, EXTENDED RELEASE - ORAL) DailyOs-joshua D 600 DailyMag-ox 400 DailyVitamin E 200 DailyVitamin D DailyOmega-3 DailyProbiotic Daily Vaccination and Tttdynfzijxx8301-42 Influenza Surgical Yihgigg8728-27 Esophageal Ifcbvjpipm8488-33 Flpnrodhbxrl6650-05 Vaginal Xubsztmdansy6923-19 Septoplasty Preventative Testing( ) 06/27/2023 Mammogram 06/26/2024( ) 04/30/2023 Albumin 4.6 G/DL N( ) 04/18/2023 Colonoscopy ( 5 Years ) 04/18/2028( ) 08/08/2022 Upper Endoscopy( ) 09/24/2019 CT Thorax(X) 06/05/2018 DEXA Scan 06/05/2020 Social HistoryDoes not smokeDrinks sociallyWorks at a financialsFamily HistoryMother living 80 essential hypertension, CAD and osteoporosisBiological Father unknown health historySisters two living and in good healthMenarche 11 Menopause A Edu Scott MD [address] [facility], [place] [address], [place], [address], [facility] [place] 10/23/2023 17:18:15 5 text/html Patient Name: Dayami PrasadDate Of Service: Saturday ( 03.17.2024 ): 1965 Age: 58 There has been approximately a 5 lb weight gain since 10/23/2023. This represents approximately a 2.4% change in weight. Weight change attributable to lifestyle changes. Vital Signs:Blood Pressure: Sitting Rt. Arm 120/84Pulse: Sitting 86 /min and RegularRespiratory Rate: 16Height 67.5 in or 1.7 mWeight 210 lb or 95.3 kgBMI 32.4Temperature: 97 F or 36.1 CPulse Oximetry: 96 % at rest on no oxygen Chief Complaint: Addressed in HPI Problems or conditions discussed in the HPI were the only ones reviewed during the encounter.Only social and family history addressed in the HPI were reviewed during this encounter. Attendant(s): NoneConstitutional and Systemic Symptoms:none Medication Reconciliation: from medication list. History of Present Illness #1. History of right sacroiliac pain with radiation down the lateral surface of the right hip into the left groin then down over the lateral surface of the thigh down into the ankle. Also has complaints of pain and discomfort in the ankle which does form of somewhat Antalgic gait. There is decrease in the quadriceps on the right with 3/4 reflex compared to the four before on the left. Ankle reflexes were diminished bilaterally. No incontinence of urine or stool no saddle anesthesia.: #2. Type II Hypercholesterolaemia: Currently taking medication and tolerating well. No interval complaints of any muscle pain or arthralgia. No significant liver changes with medications. Last lipid panel: fair control. Therapy reviewed regarding treatment of cholesterol management and include diet and Atorvastatin Calcium. #3. osteoporosis. No new complaints of any additional back,hip or other musculoskeletal complaints related to the osteoporosis. No hx of any recent trauma. Currently taking OsCal-D and Fosamax. Has has had a recent DEXA scan done within the last year. The FRAX Score for Hip Fracture is NA hx osteoporosis FRAX score for major fractures NA hx of osteoporosis #4. Hx of obesity. Currently Class 1 Obesity BMI 30-34.99. Has tried numerous dietary support and supplements with no benefit. Instructed on the health consequences of the obese status particularly cancer - diabetes and heart disease. Discussed other modalities of weight loss no . Potential candidate for bariatric surgery: Yes. Wishes to be evaluated by Dietary: No and was offered to be evaluated and instructed by agriscience instructor on weight loss diet. Active Medication ListFlecainide Acetate 50 MG (TABLET - ORAL) One BidWellbutrin Xl 300 MG (TABLET, EXTENDED RELEASE - ORAL) One DailyProlia 60 MG/ ML (INJECTABLE - SUBCUTANEOUS) Once Q 6 MonthsAtorvastatin Calcium 20 MG (TABLET - ORAL) One DailyCardizem Cd 180 MG CAPSULE, COATED, EXTENDED RELEASE One DailyLasix 20 MG (TABLET - ORAL) DailyPotassium Chloride 10 MEQ (TABLET, EXTENDED RELEASE - ORAL) DailyOs-joshua D 600 DailyMag-ox 400 DailyVitamin E 200 DailyVitamin D DailyOmega-3 DailyProbiotic DailyFolic Acid Once DailyFibersure Daily Vaccination and Immunization(X) 2021- INFLUENZA Surgical Uuhwcuk0296-16 Esophageal Wriadmpwmz6835-82 Hkpguxqbfzox1614-18 Vaginal Brbvxchgmpdc4063-66 Septoplasty Preventative Testing( ) 10/30/2023 Albumin 4.7 G/DL N( ) 10/30/2023 HAIC 5.9 % OF TOTAL HGB H( ) 06/27/2023 Mammogram 06/26/2024( ) 04/18/2023 Colonoscopy ( 5 Years ) 04/18/2028( ) 08/08/2022 Upper Endoscopy 08/09/2027( ) 09/24/2019 CT Thorax(X) 06/05/2018 DEXA Scan 06/05/2020 Social HistoryDoes not smokeDrinks sociallyWorks at a financialsFamily HistoryMother living 80 essential hypertension, CAD and osteoporosisBiological History of coronary artery disease and pacemaker insertionSisters two living One with a colonic neoplasm.Menarche 9 Menopause A Edu Scott MD [address] [facility], [facility] [address], [place], [address], [place] - [place] 03/17/2024 17:19:22 OBGyn Episode No OBEpisode recorded.
--- OUTSIDE RECORDS SUMMARY | 2024-04-03 13:20 | XMS_ITS | CONTINUITY OF CARE DOCUMENT ---
Author Name elvia, elvia Address Unknown Organization [facility] Address [address] [place] [address] Phone [phone] Care Team Providers Care Rheostat Assembler Name Role Phone Yordan JOE, Gene Unavailable [phone] [place] JOE, AISHWARYA Unavailable AISHWARYA COLEMAN MD Unavailable [phone] PROBLEMS Condition Status Date Provider Notes Tobacco use, quit active Maureen Churchill MD Chest pain- nl routine stress test and echo completed - Gene Farr MD Palpitations--sinus rhythm on holter 09/2020 active Gene Farr MD Dyspnea on exertion cxr mild hyperinflation, pfts mild obstruction active Gene Farr MD Chest pain - nl stress echo 07/19 active Gene Farr MD SVT active Vic Saini Coronary atherosclerosis, calcium score 48, 09/20 active Tomy Haque Syncope and collapse active Gene Farr MD RBBB active Renny Strickland Over weight active Renny Strickland ENCOUNTERS Date Type Provider Location Encounter Diag nosis - In-person encounter Office Visit Gene Farr MD [place] [facility] Over weight - In-person encounter Office Visit Gene Farr MD [place] [facility] - In-person encounter Office Visit Gene Farr MD [place] [facility] RBBB - In-person encounter Office Visit Gene Farr MD [place] [facility] - In-person encounter Office Visit Gene Farr MD [place] [facility] Palpitations--sinus rhythm on holter yncope and collapse - In-person encounter Office Visit Gene Farr MD [place] [facility] Coronary atherosclerosis, calcium score 48, 09/20 - In-person encounter Office Visit Gene Farr MD [place] [facility] - In-person encounter Office Visit Gene Farr MD [place] [facility] - In-person encounter Office Visit Gene Farr MD [place] [facility] - In-person encounter Office Visit Maureen Churchill MD [place] [facility] SVT - In-person encounter Office Visit Gene Farr MD [place] [facility] Chest pain- nl routine stress test and echoPalpitations--s inus rhythm on holter hest pain - nl stress echo 07/19 - In-person encounter Office Visit Gene Farr MD [place] [facility] - In-person encounter Office Visit Gene Farr MD [place] [facility] - In-person encounter Office Visit Maureen Churchill MD [place] [facility] - In-person encounter Office Visit Maureen Churchill MD [place] [facility] Tobacco use, quit - In-person encounter Office Visit Gene Farr MD [facility] Palpitations--sinus rhythm on holter 1Dyspnea on exertion cxr mild hyperinflation, pfts mild obstruction - In-person encounter Office Visit Gene Farr MD [place] [facility] Tobacco use, quitChest pain- nl routine stress test and echoPalpitations--s inus rhythm on holter 09/2020 VITAL SIGNS Date Observation Value Provider Body Mass Index (Ratio) 30.71 kg/m2 Monty Farr MD blood pressure, cuff size regular Jakob rri Alecia blood pressure, diastolic 94 mm[Hg] Ke rri Alecia blood pressure, systolic 146 mm[Hg] Brandy lombardi Alecia oxygen saturation, oximetry 96 % Masha Alecia respiratory rate E&M 12 /min Masha Woo jayenesteph pulse rate 79 /min Masha Ines [facility] weight E&M 208 [lb_av] Masha Ines er height E&M 69 [in_i] Masha Ines [facility] Body Mass Index (Ratio) 31.45 kg/m2 Monty Farr MD weight E&M 213 [lb_av] Renny Jossuemedlamont blood pressure, diastolic 70 mm[Hg] Ri az Jossuemedlamont blood pressure, systolic 130 mm[Hg] Roula gema Ahmedzajayden oxygen saturation, oximetry 95 % Renny Marcummedzajayden pulse rate 91 /min Renny Jossuemedzajayden pulse rate 76 /min Shanta Constantino blood pressure, diastolic 83 mm[Hg] Ajith Constantino blood pressure, systolic 118 mm[Hg] Treva Constantino oxygen saturation, oximetry 99 % Shanta Constantino blood pressure, cuff size large An marcela Constantino height E&M 69 [in_i] Shanta Constantino Body Mass Index (Ratio) 28.35 kg/m2 Monty Farr MD blood pressure, diastolic 83 mm[Hg] Emmy Chambers blood pressure, systolic 137 mm[Hg] Rishabh white [place] oxygen saturation, oximetry 96 % Melita [place] pulse rate 90 /min [facility]&M 192 [lb_av] Melita Mobley sigrid respiratory rate E&M 16 /min Julia leonard [place] blood pressure, cuff size large Emmy colón [place] height E&M 69 [in_i] Melita Mobley sigrid Body Mass Index (Ratio) 27.76 kg/m2 Monty Farr MD blood pressure, diastolic -1 mm[Hg] Li nkLogic blood pressure, systolic 112 mm[Hg] Kathy kLogic blood pressure, diastolic 72 mm[Hg] Ca therine Leon blood pressure, systolic 112 mm[Hg] Cat herine [place] respiratory rate E&M 16 /min Catheri ne Leon pulse rate 76 /min Sabina Leon weight E&M 188 [lb_av] Sabina Leon oxygen saturation, oximetry 98 % Sabina [place] blood pressure, cuff size regular Ca therine [place] height E&M 69 [in_i] Sabina [place] Body Mass Index (Ratio) 27.02 kg/m2 Monty Farr MD blood pressure, cuff size large Ke rri Gruenenfeldlola blood pressure, diastolic 70 mm[Hg] Ke rri Gruenenfelder blood pressure, systolic 120 mm[Hg] Ker ri Gruenenfvarinder oxygen saturation, oximetry 98 % Masha Gruenenfvarinder respiratory rate E&M 16 /min Masha G jayenenfelder pulse rate 78 /min Masha Gruenenfhoracio lder weight E&M 183 [lb_av] Masha Cae lder height E&M 69 [in_i] Masha Cae lder pulse rate 72 /min Tomy Nacht blood pressure, diastolic 70 mm[Hg] Ja cob Nacht blood pressure, systolic 110 mm[Hg] Pancho ob Nacht height E&M 69 [in_i] Tonsha Plummer temperature site temporal Yumiko Tank sley temperature E&M 97.5 [degF] Yumiko Tanks dean Body Mass Index (Ratio) 26.73 kg/m2 Monty Farr MD blood pressure, cuff size regular Cr clive Constantino blood pressure, diastolic 80 mm[Hg] Cr clive Constantino blood pressure, systolic 110 mm[Hg] Cry stavan Constantino oxygen saturation, oximetry 98 % Elisa Constantino respiratory rate E&M 17 /min Elisa Constantino pulse rate 84 /min Elisa rivera weight E&M 181 [lb_av] Elisa Shay rivera height E&M 69 [in_i] Elisa Shay rivera Body Mass Index (Ratio) 29.68 kg/m2 Monty Farr MD blood pressure, cuff size large Ke rri Alecia blood pressure, diastolic 70 mm[Hg] Ke rri Gruenesteph blood pressure, systolic 120 mm[Hg] Brandy ri Alecia oxygen saturation, oximetry 98 % Masha Alston respiratory rate E&M 18 /min Masha ramires pulse rate 80 /min Masha Ines lder weight E&M 201 [lb_av] Masha Ines lder height E&M 69 [in_i] Masha Chacon er Body Mass Index (Ratio) 28.94 kg/m2 Ricci Saini blood pressure, cuff size large Ke rri Franciscanenfelder blood pressure, diastolic 70 mm[Hg] Jakob rri Anastaciouenenfelder blood pressure, systolic 130 mm[Hg] Brandy Ordaznfelder oxygen saturation, oximetry 97 % Masha Penalozaelder respiratory rate E&M 20 /min Masha G ruenenfelder pulse rate 87 /min Masha Chacon lder weight E&M 196 [lb_av] Masha Cae lder height E&M 69 [in_i] Masha Grcorynenfe lder Body Mass Index (Ratio) 29.09 kg/m2 Monty Farr MD blood pressure, diastolic 70 mm[Hg] Da edgar Zeny blood pressure, systolic 122 mm[Hg] Dac ia Zeny oxygen saturation, oximetry 98 % Rebecca Zeny respiratory rate E&M 16 /min Rebecca V oss pulse rate 83 /min Rebecca Zeny weight E&M 197 [lb_av] Rebecca Zeny height E&M 69 [in_i] Rebecca Zeny Body Mass Index (Ratio) 28.06 kg/m2 Monty Farr MD blood pressure, cuff size regular Lorena Mota blood pressure, diastolic 84 mm[Hg] Lorena Mota blood pressure, systolic 120 mm[Hg] Janet Mota oxygen saturation, oximetry 98 % Celia Mota respiratory rate E&M 16 /min Celia Mota pulse rate 89 /min Celia Mota weight E&M 190 [lb_av] Celia Mota height E&M 69 [in_i] Celia Mota blood pressure, diastolic 85 mm[Hg] Me je Bojorquez blood pressure, systolic 129 mm[Hg] Nikki christal Bojorquez pulse rate 82 /min Jennifer Bojorquez oxygen saturation, oximetry 98 % Jennifer Bojorquez respiratory rate E&M 14 /min Jennifer Bojorquez Body Mass Index (Ratio) 28.20 kg/m2 Karyn Bautistaann weight E&M 191 [lb_av] Jennifer Bojorquez blood pressure, diastolic 88 mm[Hg] Faith Castaneda blood pressure, systolic 139 mm[Hg] Ana Castaneda pulse rate 85 /min Nir Clarke jose fgaby oxygen saturation, oximetry 98 % Nir Castaneda respiratory rate E&M 16 /min Heidi Castaneda Body Mass Index (Ratio) 28.11 kg/m2 Giulia Castaneda weight E&M 190.4 [lb_av] Nir vega blood pressure, diastolic 85 mm[Hg] Jakob cathy Alston blood pressure, systolic 121 mm[Hg] Brandy Alston pulse rate 96 /min Masha Chacon lder oxygen saturation, oximetry 98 % Masha Alston respiratory rate E&M 16 /min Masha ramires Body Mass Index (Ratio) 27.61 kg/m2 Hdz jayden Alston weight E&M 187 [lb_av] Masha Ines lder blood pressure, diastolic 79 mm[Hg] Me je Arnav blood pressure, systolic 125 mm[Hg] Nikki christal Arnav pulse rate 108 /min Jennifer Arnav oxygen saturation, oximetry 98 % Jennifer Arnav respiratory rate E&M 18 /min Jennifer Arnav Body Mass Index (Ratio) 26.87 kg/m2 Karyn José weight E&M 182 [lb_av] Jennifer José blood pressure, diastolic 96 mm[Hg] Me je Bojorquez blood pressure, systolic 128 mm[Hg] Nikki Bojorquez blood pressure, diastolic 76 mm[Hg] Faith Castaneda blood pressure, systolic 116 mm[Hg] Ana Castaneda Body Mass Index (Ratio) 27.08 kg/m2 Giulia Castaneda pulse rate 84 /min Nir henriquez oxygen saturation, oximetry 97 % Nir Castaneda respiratory rate E&M 16 /min Heidi Castaneda weight E&M 183.4 [lb_av] Nir vega height E&M 69 [in_i] Nir henriquez ALLERGIES No Known Drug Allergies RESULTS Date Observation Value Provider Reference Range Interpretation Location calcium, serum 10.1 mg/dL [facility] 8.6-10.4 Normal carbon dioxide, venous blood 34 mmol/L [facility] 20-32 High chloride, serum 102 mmol/L [facility] 98-110 Normal potassium, serum 4.3 mmol/L [facility] 3.5-5.3 Normal sodium, serum 141 mmol/L [facility] 135-146 Normal urea nitrogen/creatinine ratio, serum NOT APPLICABLE (calc) [facility] 6-22 Estimated Glomerular Filtration Rate (calc) 75 mL/min/{1.73_ m2} [facility] > OR = 60 Normal creatinine, serum 0.97 mg/dL [facility] 0.50-1.05 Normal urea nitrogen, blood 21 mg/dL [facility] 7-25 Normal blood glucose, random 99 mg/dL [facility] 65-139 Normal hemoglobin A1C, blood, as % of total hemoglobin 5.6 % OF TOTAL HGB [facility] <5.7 Normal mean platelet volume 11.6 fL [facility] 7.5-12.5 Normal platelet count 244 THOUSAND/UL [facility] 140-400 Normal red blood cell distribution width 11.8 % [facility] 11.0-15.0 Normal mean corpuscular hemoglobin concentration, RBC 33.0 G/DL [facility] 32.0-36.0 Normal mean corpuscular hemoglobin, RBC 31.8 pg [facility] 27.0-33.0 Normal mean corpuscular volume, RBC 96.5 fL [facility] 80.0-100.0 Normal hematocrit, blood 44.6 % [facility] 35.0-45.0 Normal hemoglobin electrophoresis, blood 14.7 [facility] 11.7-15.5 Normal erythrocyte (RBC) count 4.62 MILLION/UL [facility] 3.80-5.10 Normal leukocyte (white blood cells) count, blood 7.1 THOUSAND/UL [facility] 3.8-10.8 Normal alanine aminotransferase (SGPT), serum 21 1/L [facility] 6-29 Normal aspartate aminotransferase (SGOT), serum 19 1/L [facility] 10-35 Normal alkaline phosphatase, serum 59 1/L [facility] 37-153 Normal bilirubin, serum, total 0.4 mg/dL [facility] 0.2-1.2 Normal albumin/globulin ratio, serum 1.9 (calc) [facility] 1.0-2.5 Normal globulins, serum, total 2.6 G/DL (CALC) [facility] 1.9-3.7 Normal albumin, serum 4.9 g/dL [facility] 3.6-5.1 Normal protein, total, serum 7.5 g/dL [facility] 6.1-8.1 Normal calcium, serum 10.0 mg/dL [facility] 8.6-10.4 Normal carbon dioxide, venous blood 29 mmol/L [facility] 20-32 Normal chloride, serum 102 mmol/L [facility] 98-110 Normal potassium, serum 3.8 mmol/L [facility] 3.5-5.3 Normal sodium, serum 143 mmol/L [facility] 135-146 Normal urea nitrogen/creatinine ratio, serum NOT APPLICABLE (calc) [facility] 6-22 Estimated Glomerular Filtration Rate (calc) 80 mL/min/{1.73_ m2} [facility] > OR = 60 Normal creatinine, serum 0.93 mg/dL [facility] 0.50-1.05 Normal urea nitrogen, blood 16 mg/dL [facility] 7-25 Normal blood glucose, random 87 mg/dL [facility] 65-99 Normal cholesterol, non-HDL, total 106 MG/DL (CALC) [facility] <130 Normal cholesterol/HDL ratio, serum, percent 2.2 (calc) [facility] <5.0 Normal LDL cholesterol, serum 92 MG/DL (CALC) [facility] Normal triglyceride, serum, fasting 57 mg/dL [facility] <150 Normal HDL cholesterol, serum 87 mg/dL [facility] > OR = 50 Normal cholesterol, serum 193 mg/dL [facility] <200 Normal thyroxine, serum, total 9.3 ??G/DL [facility] 4.5 - 11.7 triiodothyronine uptake 1.0 TBI [facility] 0.8 - 1.3 very low density lipoproteins 40.0 mg/dL [facility] 5.0 - 40.0 LDL/HDL (low-density lipoprotein/high-de nsity lipoprotein) ratio 2.3 RATIO [facility] - HDL cholesterol, serum 52.0 mg/dL [facility] 45.0 - 65.0 sum total cholesterol 210.0 mg/dL [facility] 0.0 - 200.0 High Triglycerides-direc t 200.0 mg/dL [facility] 0.0 - 150.0 High thyroid stimulating hormone, serum 1.660 ?IU/ML [facility] 0.270 - 4.200 magnesium, serum 2.2 mg/dL [facility] 1.6 - 2.6 HISTORY OF MEDICATION USE Medication Status Instructions Dates Provider Indications Com ments Wegovy 0.25 mg/0.5 mL pen injector active Inject 0.25mg subcutaneously once a week for 4 weeks Renny Strickland diltiazem HCl (Cardizem CD) 180 mg capsule,extende d release 24hr active TAKE 1 CAPSULE DAILY Gene Farr MD furosemide 20 mg tablet active TAKE 1 TABLET DAILY Gene Farr MD potassium chloride 10 mEq tablet extended release active TAKE 1 TABLET TWICE A DAY Sue Jin flecainide 50 mg tablet active TAKE 1 TABLET TWICE A DAY Gene Farr MD atorvastatin 40 mg tablet active TAKE 1 TABLET DAILY Luana Bro ASPIRIN 81 81 MG ORAL TABLET DELAYED RELEASE active 1 tablet by mouth once a day Masha Alston Fish Oil 300-1,000 mg capsule active 1 tablet once a day Masha Alston biotin 5 mg capsule completed once a day - Renny Strickland MULTIVITAMINS ORAL CAPSULE active 1 tablet once a day Masha Alston Prolia 60 mg/mL syringe active every four weeks Sabina Quintero atorvastatin 40 mg tablet completed one tab daily - Gene Farr MD #30, 30 days supply, Prescribed by AISHWARYA COLEMAN, Filled 08/19/2018 SUPER B-50 ORAL TABLET completed once a day - Masha Alston flecainide 50 mg tablet completed Take 1 tablet twice a day - Pierre Sandoval RISEDRONATE SODIUM 35 MG ORAL TABLET completed once a week - Elisa Constantino Wellbutrin XL 150 mg tablet extended release 24 hr active Take 1 once a day Masha Alston diltiazem HCl 180 mg capsule,extende d release 24hr completed Take 1 capsule once a day - Pierre Sandoval VITAMIN B COMPLEX ORAL TABLET completed take one tablet daily - Masha Alston EVISTA 60 MG ORAL TABLET completed take once a day - Rebceca Zeny potassium chloride 10 mEq tablet extended release completed Take 1 tablet twice a day - Longjah Timbo magnesium oxide 400 mg (241.3 mg magnesium) tablet active 1 tablet twice a day Maureen Churchill MD CALCIUM + D3 600-200 MG-UNIT ORAL TABLET active 1 tablet by mouth once a day Nir Castaneda COQ-10 CAPS completed take one pill a day - Rebecca Zeny furosemide 20 mg tablet completed Take 1 tablet once a day - Pierre Sandoval CARDIZEM CD 120 MG ORAL CAPSULE EXTENDED RELEASE 24 HOUR completed Take 1 Tablet Twice a Day. - Gene Farr MD IRON 325 (65 Fe) MG ORAL TABLET completed every other day - Masha Alston BLACK COHOSH CAPS completed once daily - Masha Alston ZINC-220 CAPSULE completed once daily - Masha Alston VITAMIN B-12 1000 MCG ORAL TABLET completed One tablet daily - Masha Alston vitamin E (dl, acetate) 180 mg (400 unit) capsule active 1 tablet once a day Nir Castaneda ASPIRIN 81 MG ORAL TABLET completed ONE TAB. DAILY - Rebecca Zeny WELLBUTRIN SR 150 MG ORAL TABLET EXTENDED RELEASE 12 HOUR completed once daily - Celia Mota AMILORIDE-HYDRO CHLOROTHIAZIDE TABLET completed once daily - Gene Farr MD SOCIAL HISTORY Date Observation Value Provider alcohol use no Renny Strickland number of years as a smoker 35 a Renny Strickland smoking history, tot al pack/day 1 Renny Strickland cigarette use yes Renny Strickland smoking status Former smoker Renny Alcocer i alcohol use no Renny Strickland number of years as a smoker 35 a Renny Strickland smoking history, tot al pack/day 1 Renny Strickland cigarette use yes Renny Strickland smoking status Former smoker Renny Alcocer i social history E&M S moking History: Catherine watson is a former smoker. Renny Strickland social history reviewed E&M revi ewed - no changes required Renny Strickland number of years as a smoker 35 a Shanta Dougie smoking history, tot al pack/day 1 Shantaalek Constantino cigarette use yes Shanta Constantino smoking status Former smoker Shanta Shay rivera social history E&M S moking History: Catherine watson is a former smoker. Rennygema Strickland number of years as a smoker 35 a Melita Chambers smoking history, tot al pack/day 1 Melita Reyes cigarette use yes Melita Arriolaalek waldron smoking status Former smoker Melita Orozco true social history reviewed E&M revi ewed - no changes required Gene Farr MD number of years as a smoker 35 a Sabina Leon smoking history, tot al pack/day 1 Sabina [place] cigarette use yes Sabina [place] smoking status Former smoker Sabina Ot is social history reviewed E&M revi ewed - no changes required Renny Strickland social history E&M S moking History: P atient is a former smoker. Tomy Haque social history reviewed E&M revi ewed - no changes required Tomy Haque number of years as a smoker 35 a Masha Penalozaelder smoking history, tot al pack/day 1 Masha Franciscanenfelder cigarette use yes Masha Ca elder smoking status Former smoker Masha Ordaz nfelder social history E&M S moking History: P atient is a former smoker. Tomy Haque social history reviewed E&M revi ewed - no changes required Tomy Haque number of years as a smoker 35 a Tomy Haque smoking history, tot al pack/day 1 Tomy Haque cigarette use yes Tomy Haque smoking status Former smoker Tomy Haque social history reviewed E&M revi ewed - no changes required Gene Farr MD social history E&M S moking History: P atient is a former smoker. Gene Farr MD cigarette use yes Elisa Johnson ms smoking status Former smoker Elisa [place] iany social history reviewed E&M revi ewed - no changes required Gene Farr MD alcohol use no Masha Penalozae lder number of years as a smoker 35 a Masha Penalozaelder smoking history, tot al pack/day 1 Masha Sushmabrandyelder cigarette use yes Masha Penaloza elder smoking status Former smoker Masha Ordaz nfelder number of grandchildren Maureen Saini social history E&M S moking History: P atient is a former smoker. Vic Saini social history reviewed E&M revi ewed - no changes required Vic Saini alcohol use no Masha Chacon lder number of years as a smoker 35 a Masha Penalozaelder smoking history, tot al pack/day 1 Masha Ordaznfelder cigarette use yes Masha Penaloza elder smoking status Former smoker Masha Ordaz nfelder number of grandchildren Gene Farr MD T hoang Farr MD social history reviewed E&M revi ewed - no changes required Gene Farr MD alcohol use no Rebecca Zeny number of years as a smoker 35 a Rebecca Zeny smoking history, tot al pack/day 1 Rebecca Zeny cigarette use yes Rebecca Zeny smoking status Former smoker Rebecca Zeny social history reviewed E&M revi ewed - no changes required Gene Farr MD alcohol use no Celia Mota number of years as a smoker 35 a Celia Mota smoking history, tot al pack/day 1 Celia Mota cigarette use yes Celiaalek Mota smoking status Former smoker Celia Mota social history reviewed E&M revi ewed - no changes required Gene Farr MD alcohol use no Jennifer Bojorquez number of years as a smoker 35 a Jennifer Bojorquez smoking history, tot al pack/day 1 Jennifer Bojorquez cigarette use yes Jennifer Bojorquez smoking status Former smoker Jennifer Marr nn social history reviewed E&M revi ewed - no changes required Maureen Churchill MD alcohol use no Nir henriquez number of years as a smoker 35 a Nir Castaneda smoking history, tot al pack/day 1 Nir Castaneda cigarette use yes Nir vega smoking status Former smoker Nir Calderon social history E&M Smoking Histo ry: P shirley is a former smoker. Maureen Churchill MD social history reviewed E&M revi ewed - no changes required Maureen Churchill MD alcohol use no Masha Ordaznfhoracio lder smoking status Former smoker Masha Ordaz nfelder social history reviewed E&M revi ewed - no changes required Gene Farr MD smoking/tobacco cess ation, patient education and counseling yes Jennifer José number of years as a smoker 35 a Jennifer José smoking history, tot al pack/day 1 Jennifer José cigarette use yes Jennifer José smoking status current Jennifer José smoking status current Jennifer Rivera n social history reviewed E&M revi ewed - no changes required Gene Farr MD smoking/tobacco cess ation, patient education and counseling yes Gene Farr MD number of years as a smoker 35 a Nir Castaneda smoking history, tot al pack/day 1 NirYesenia Castaneda cigarette use yes Nir vega smoking status Current every day smoker Allyson Bautista Castaneda FUNCTIONAL STATUS Date Observation Value Provider HRA, CV Assess/Plan, Angina (inactive) Management Plan continue current therapy Renny Ahmedzai HRA, CV Assess/Plan, Angina (inactive) Management Plan continue current therapy Renny Ahmedzai HRA, CV Assess/Plan, Angina (inactive) Management Plan continue current therapy Renny Ahmedzai HRA, CV Assess/Plan, Angina (inactive) Management Plan continue current therapy Renny Ahmedzai HRA, CV Assess/Plan, Angina (inactive) Management Plan continue current therapy Renny Ahmedzai periodic limb movement index absent (0) Maureen Churchill MD FAMILY HISTORY Family Member Condition Mother ND female <65 Mother Family History of Co ronary Artery Disease: Mother Family History of Hy pertension: Mother Family History of CV A or Stroke: INSURANCE PROVIDERS Payer name Policy type / Coverage type Kala red constitution party ID [facility] [employer] insurance company [id number] ADVANCE DIRECTIVES Name Date DISCUSSED - NO DECISION MADE TREATMENT PLAN Date Name Performer [id number],B, Renny Ahmedza i [id number],B, Renny Ahmedza i [id number],S, Renny Ahmedza i [id number],S, Renny Ahmedza i [id number],S, Renny Ahmedza i [id number],S, Renny Ahmedza i [id number],B, Renny Ahmedza i [id number],S, Renny Ahmedza i [id number],S, Renny Ahmedza i [id number],S, Renny Ahmedza i [id number],S, Renny Ahmedza i [id number],S, Renny Ahmedza i [id number],S, Renny Ahmedza i [id number],S, Renny Ahmedza i [id number],B, Renny Ahmedza i [id number],S, Renny Ahmedza i [id number],S, Renny Ahmedza i [id number],S, Renny Ahmedza i Cardiology: H er updated medication list for this problem includes: Diltiazem Hcl 180 Mg Capsule,extended Release 24hr (Diltiazem hcl) ..... Take 1 capsule [facility] H er updated medication list for this problem includes: Flecainide 50 Mg Tablet (Flecainide) ..... Take 1 tablet twice a day Diltiazem Hcl 180 Mg Capsule,extended Release 24hr (Diltiazem hcl) ..... Take 1 capsule daily [facility]: H er updated medication list for this problem includes: Diltiazem Hcl 180 Mg Capsule,extended Release 24hr (Diltiazem hcl) ..... Take 1 capsule daily [facility] Cardiology: H er updated medication list for this problem includes: Flecainide 50 Mg Tablet (Flecainide) ..... Take 1 tablet twice a day Diltiazem Hcl 180 Mg Capsule,extended Release 24hr (Diltiazem hcl) ..... Take 1 capsule daily [facility]: H er updated medication list for this problem includes: Flecainide 50 Mg Tablet (Flecainide) ..... Take 1 tablet twice a day Diltiazem Hcl 180 Mg Capsule,extended Release 24hr (Diltiazem hcl) ..... Take 1 capsule daily [facility] Renny Marcummedzai Cardiology Renny Ahmedzai Cardiology Renny Ahmedzai Cardiology Renny Ahmedzai Cardiology:no recurrence Renny Ah [facility] Cardiology Renny Ahmedzai Cardiology Renny Ahmedzai Cardiology Renny Ahmedzai Cardiology Renny Ahmedzai Cardiology Renny Ahmedzai Cardiology Renny Ahmedzai Cardiology Renny Ahmedzai Cardiology Renny Ahmedzai Cardiology Renny Ahmedzai [facility] R[facility] Cardiology Renny [facility] Cardiology Renny [facility] Cardiology Renny [facility] Cardiology Renny Ahmedzai Cardiology Renny [facility]ai Cardiology Follow up [place] [facility] Follow up [place] [facility] Follow up [place] [facility] Follow up [place] [facility] Follow up [place] [facility] [place] [facility] [place] [facility] [place] [facility] [place] [facility] [place] [facility] Gene Farr MD Cardiology Gene Farr MD Cardiology Gene Farr MD Cardiology Follow up Gene green MD Cardiology Follow up Gene green MD Cardiology Follow up Gene green MD Electrophysiology Fo llow up: O rders: S chedule Followup (*) M obile Cardiac Tele (CPT-47149) 9 9215 HIGH Complex (CPT-62122) Vic Kyte Electrophysiology Fo llow up:Workup was negative in the past Her updated medication list for this problem includes: Cardizem Cd 180 Mg Oral Capsule Extended Release 24 Hour (Diltiazem hcl coated beads) ..... One capsule po once daily Orders: S chedule Followup (*) M obile Cardiac Tele (CPT-97563) 9 9215 HIGH Complex (CPT-60220) Vic Kyte Electrophysiology Fo llow up:Workup was negative in the past Vic Johnte Electrophysiology Fo llow up:Differential dx may be atrial flutter H er updated medication list for this problem includes: Flecainide Acetate 50 Mg Oral Tablet (Flecainide acetate) ..... One tab twice daily Cardizem Cd 180 Mg Oral Capsule Extended Release 24 Hour (Diltiazem hcl coated beads) ..... One capsule po once daily Vic Johnte Electrophysiology Fo llow up:Started Flecanide 50mg. H er updated medication list for this problem includes: Flecainide Acetate 50 Mg Oral Tablet (Flecainide acetate) ..... One tab daily Cardizem Cd 180 Mg Oral Capsule Extended Release 24 Hour (Diltiazem hcl coated beads) ..... One capsule po once daily Vic Parveen Cardiology follow up Gene green MD Cardiology follow up :Increase Cardizem to 180mg W ear 48hr Holter. Gene Farr MD Cardiology follow up:Check PFT's Gene Farr MD Cardiology follow up Gene green MD Cardiology follow up Gene green MD Cardiology follow up :Increase Cardizem to 180mg W ear 48hr Holter. Gene Farr MD Cardiology Follow up Gene green MD Cardiology Follow up Gene green MD Cardiology Gene Farr MD Cardiology Gene Farr MD Cardiology Gene Farr MD Cardiology Gene Farr MD EP faxed 03/23/15: O rders: S NOMED-CT: [id number] Current Medications Documented ([facility]-[id number]) E KG (CPT-21789) M obile Cardiac Tele (CPT-18243) Her updated medication list for this problem includes: Aspirin 81 Mg Tabs (Aspirin) ..... One tab. daily Cardizem Cd 120 Mg Cp24 (Diltiazem hcl coated beads) ..... Take one pill twice jian Churchill MD Cardiology Gene Farr MD Cardiology Gene Farr MD Cardiology Gene Farr MD Cardiology Gene Farr MD Cardiology:check holter, electro lytes Gene Farr MD Cardiology:check echo , stress t est , labs , cxr Gene Farr MD Cardiology Gene Farr MD Cardiology Gene Farr MD Date Name BASIC METABOLIC PANE L W/EGFR Loop Rec Implant - S LHV CT, Coronary Calcium Score Vitamin D, 25-Hydrox y TSH, 3RD GENERATION W/REFLEX TO FT4 LIPID PANEL CBC (H/H, RBC, INDIC ES, WBC, PLT) HEMOGLOBIN A1c COMPREHENSIVE METABO LIC PANEL, W/EGFR Mobile Cardiac Tele Holter Monitor 24 Hr DLCO - 55375 FRC - 73032 FVC - 55146 STR - Echo Mobile Cardiac Tele LIPID PANEL T-4, FREE T-4 (THYROXINE), TOT AL T-3 UPTAKE T3, TOTAL TSH, 3RD GENERATION MAGNESIUM HISTORY OF PROCEDURES Procedure Date Procedure Name Provider Procedure Notes S tatus EKG Gene Farr MD completed EKG Gene Farr MD completed Holter, 24 or 48 Gene Farr MD com pleted CT- Coronary CA score Gene Farr MD completed EKG Gene Farr MD completed Schedule Followup Maureen baltazar MD In 1 year completed EKG Maureen rivera MD completed FVC / MVV with bronchodilator - 10653 Gene Farr MD completed BLOOD COUNT HEMOGLOBIN Gene Farr MD completed FRC - 78788 Gene Farr MD complete d SpO2 w/o 6min walk/titration Gene Farr MD completed DLCO - 52796 Gene Farr MD complet ed EKG Gene Farr MD completed SNOMED-CT: 02295209 Physical Exam, Performed: Pulse Exam of Foot Gene Farr MD completed EKG Gene Farr MD completed SNOMED-CT: [id number] Current Medications Documented Gene Farr MD completed SNOMED-CT: 47549688 Physical Exam, Performed: Pulse Exam of Foot Gene Farr MD completed SNOMED-CT: 372749983727746 Current Medications Documented Gene Farr MD completed SNOMED-CT: 204538520 Smoking Cessation Counseling Maureen Churchill MD completed EKG Maureen rivera MD completed SNOMED-CT: 447162783406941 Current Medications Documented Maureen Churchill MD completed Mobile Cardiac Telem etry - Tech Mena Salgado completed Mobile Cardiac Telem etry - Prof Mena Salgado completed Schedule Followup Maureen baltazar MD 2 weeks completed SNOMED-CT: 263281073 Smoking Cessation Counseling Maureen Churchill MD completed EKG Maureen rivera MD completed SNOMED-CT: 383340415817279 Current Medications Documented Maureen Churchill MD completed Holter, 24 or 48 Gene Farr MD com pleted SNOMED-CT: 764043051703270 Current Medications Documented Gene Farr MD completed SNOMED-CT: 956373729 Smoking Cessation Counseling Gene Farr MD completed EKG Gene Farr MD completed Stress EKG Gene Farr MD completed BLOOD COUNT HEMOGLOBIN Gene Farr MD completed FVC - 49192 Gene Farr MD complete d FR - 62171 Gene Farr MD complete d DLWI - 92418 Gene Farr MD complet ed
--- OUTSIDE RECORDS SUMMARY | 2024-04-03 13:20 | XMS_ITS | Continuity of Care Document ---
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 , [address], [place], [place], [facility], . tel:[phone] Referring Provider: Sherif Ward, [address], [place], [facility]. tel:[phone] Family History Family Member Type Diagnosis Age At Onset No Information Payers Payer name Insurance type Covered democrat ID Authoriza tion(s) No Information Social History Type Description Quantity Date Captured Comments Sex Female Smoking Status No Information Chief Complaint And Reason For Visit No Information Reason For Referral Reason For Referral No Information History Of Present Illness Encounter Date Complaint History Of Prese nt Illness No Information Functional Status Date Functional Assessmen t No Information Instructions Date Instruction Additional Infor mation No Information Assessments Type Assessment Date No Information Patient Care Teams Name Effective Dates (start - stop) Status Members No Information
--- OUTSIDE RECORDS SUMMARY | 2024-04-03 13:20 | XMS_ITS | Clinical Summary ---
Author Organization [facility] Address [facility] [place] [address] Care Team Providers Care Conference Service Coordinator Name Role Phone Edu Scott MD Primary Care Provider Janee Stephen NP Unavailable [phone] Allergies Active Allergy Reactions Criticality Noted Date Comments Codeine Nausea only Low 10/03/2020 Medications buPROPion XL (WELLBUTRIN XL) 300 mg 24 hr tablet 9 Active calcium carbonate-vitam in D3 1,500 mg (600mg elemental) -800 unit per tablet 2 times daily Active CARTIA XT 180 mg 24 hr capsule 9 Active flecainide (TAMBOCOR) 50 mg tablet 9 Active furosemide (LASIX) 20 mg tablet daily Active magnesium oxide (MAG-OX) 400 mg (241.3 mg elemental magnesium) tablet 2 times daily Active POTASSIUM CHLORIDE ER 10 mEq CR tablet 9 Active hzrpt-9-mrr-epa -dpa-fish oil 1,050-1,200 mg capsule 1 capsule Active acidophilus-pec tin, citrus 100 million cell-10 mg capsule Take by mouth Activ e denosumab (PROLIA) 60 mg/mL syringe Inject 1 mL (60 mg total) under the skin every 6 (six) months Active aspirin 81 mg enteric coated tablet Take by mouth daily 1 Active cholecalciferol (cholecalcifero l) 400 unit capsule Active vitamin E (vitamin E) 400 unit capsule Take 1 capsule (400 Units total) by mouth Active prednisoLONE acetate (PRED FORTE) 1 % ophthalmic suspension INSTILL 1 DROP INTO LEFT EYE 4 TIMES DAILY FOR 4 DAYS Active sodium, potassium & mag sulfates (SUPREP BOWEL KIT) 17.5-3.13-1.6 gram recon soln TAKE DIRECTED PER DR KOCH WRITTEN INSTRUCTIONS THAT WERE MAILED TO YOU Active Active Problems Problem Noted Date Diagnosed Date Abnormal mammogram 08/11/2019 Age-related osteoporosis wit hout current pathological fracture 06/25/2018 Surgical History Surgery Date Site/Laterality Comments HYSTERECTOMY FOOT SURGERY ELBOW SURGERY WRIST SURGERY Medical History Medical History Date Comments Heart disease Depression Osteoporosis Family History Medical History Relation Name Comments Osteoporosis Mother Family history of osteoporosis - (Added by TW Conv) Osteoporosis Sister 1 Family history of osteoporosis - (Added by TW Conv) Curvature of spine Sister 2 Curvature of spine - (Added by Conv) Hip fracture Neg Hx Relation Name Status Comments Mother Sister 1 Sister 2 Social History Tobacco Use Types Packs/Day Years Used Date Smoking Tobacco: Former E-cigarettes Smokeless Tobacco: Never Tobacco Cessation:Counseling Given: Not Answered Comments No Sex and Gender Information Value Date Recorded Sex Assigned at Not on file 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 Gender Identity Female 08/06/2019 7:00 PM CDT Sexual Orientation Not on file Obstetrics History Last Filed Vital Signs Vital Sign Reading Time Taken Comments Blood Pressure 127/82 10/03/2020 3:46 PM CDT Pulse 81 10/03/2020 3:46 PM CDT Temperature 36.4 ??C (97.5 ??F) 10/03/2020 3:46 PM CD T Respiratory Rate - - Oxygen Saturation - - Inhaled Oxygen Concentration - - Weight 93.5 kg (206 lb 3.2 oz) 10/29/2023 3:33 P M CDT Height 170.8 cm (5' 7.25 ) 10/29/2023 3:33 PM CD T Body Mass Index 32.06 10/29/2023 3:33 PM CDT Plan of Treatment Health Maintenance Due Date Last Done Comments Colon Cancer Screening-Colonoscopy 1963 Depression Screening 1963 Hepatitis C Screening 1963 Hepatitis B Screening 1981 Regular Well Visit/Exam 18-64 1981 Zoster Vaccine (1 of 2) 2013 Breast Cancer Screening-Mammogram 06/26/2024 06/27/2023, 06/25/2022, 06/23/2021, Additional history exists DTaP/Tdap/Td Vaccine (2 - Td or Tdap) 09/05/2030 09/05/2020 Influenza Vaccine Completed 12/18/2023, , 12/24/2020, Additional history exists Pneumococcal vaccine <65 Aged Out No longer eligible based on patient's age to complete this topic Procedures Procedure Name Priority Date/Time Associated Diagnosis Comments SCREENING MAMMOGRAM BILATERAL W BALWINDER Schedule Routine, Read Routine (OP Routine) 06/27/2023 7:59 AM CDT Screening mammogram, encounter for from Last 3 Months or Most Recently Relevant to Health Maintenance Results * Screening Mammogram Bilateral W Balwinder (06/27/2023 7:59 AM CDT) Anatomical Region Laterality Modality Breast Bilateral Mammography Narrative 06/27/2023 11:01 AM CDT Mammogram Technique: Bilateral Digital Breast Tomosynthesis, Bilateral C-view 2D Screening mammogram. ??Views obtained: ??bilateral craniocaudal and bilateral mediolateral oblique. ??Computer Aided Detection was performed. Mammogram Findings: The present examination has been compared to prior imaging studies performed at [facility] on 06/03/2020, 06/23/2021 and 06/25/2022. There are scattered areas of fibroglandular density. There is an oval mass measuring 9 millimeters with circumscribed margins in the subareolar area of the left breast. There is no suspicious abnormality in the right breast. Impression: Mass in the left breast requires additional evaluation. An ultrasound exam is recommended at this time. OVERALL FINAL ASSESSMENT: BI-RADS CATEGORY 0: ??Incomplete: ??Need additional imaging evaluation. Procedure Note Dayami Fisher MD - 06/27/2023 Mammogram Technique: Bilateral Digital Breast Tomosynthesis, Bilateral C-view 2D Screening mammogram. Views obtained: bilateral craniocaudal and bilateral mediolateral oblique. Computer Aided Detection was performed. Mammogram Findings: The present examination has been compared to prior imaging studies performed at [facility] on 06/03/2020, 06/23/2021 and 06/25/2022. There are scattered areas of fibroglandular density. There is an oval mass measuring 9 millimeters with circumscribed marginsin the subareolar area of the left breast. There is no suspicious abnormality in the right breast. Impression: Mass in the left breast requires additional evaluation. An ultrasoundexam is recommended at this time. OVERALL FINAL ASSESSMENT: BI-RADS CATEGORY 0: Incomplete: Need additional imaging evaluation. us Self Screening Mammogram IMG MAMMO PROCEDURES Fi nal Result from Last 3 Months or Most Recently Relevant to Health Maintenance Insurance GENERIC [employer] ASSIST [id number] [place] [address] [facility] ANTHEM ACCESS BLUE ACCESS OOS [facility] Care Teams Conference Service Coordinator Relationship Specialty Start Date End Date Edu Scott MD PCP - General 05/23/17 Janee Stephen NP Nurse Practitioner Obstetrics and Gynecology 05/27/19
--- OUTSIDE RECORDS SUMMARY | 2024-04-03 13:20 | XMS_ITS | Referral Summary ---
Author Organization [facility] Address [address] [place] [address] Care Team Providers Care Helicopter Pilot Name Role Phone Edu Scott MD Primary Care Provider Janee Stephen NP Unavailable [phone] Allergies Active Allergy Reactions Criticality Noted Date [...] ER 10 mEq CR tablet 9 Active qhfuu-6-pnk-epa -dpa-fish oil 1,050-1,200 mg capsule 1 capsule [...] osteoporosis wit hout current pathological fracture 06/25/2018 Social History Tobacco Use Types Packs/Day Years Used Date Smoking Tobacco: Former E-cigarettes Smokeless Tobacco: Never Tobacco Cessation:Counseling Given: Not Answered Comments No Sex and Gender Information Value Date Recorded Sex Assigned at Not on file 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 There [...] compared to prior imaging studies performed at [facility] on 06/03/2020, 06/23/2021 and 06/25/2022. There [...] to Health Maintenance Insurance [employer]IC [employer] ASSIST [id number] [place] [address] [facility] Member Subscriber Plan / Payer (Ef fective 2018-Present) Name:Dayami Prasad Relation to Subscriber:Self Name:Dayami Prasad Payer ID:[id number] (NAIC) Type:Lift Agency Address: [address] ACCESS OOS [facility] Member Subscriber Plan / Payer (Ef fective 2023-Present) Name:Dayami Prasad Relation to Subscriber:Self Name:Dayami Prasad Payer ID:[id number] (NAIC) Type:[facility] HMO/PPO Address: [place] [id number] Care Teams Helicopter Pilot Relationship Specialty Start Date End Date Edu Scott MD PCP - General 05/23/17 Janee Stephen NP Nurse Practitioner Obstetrics and Gynecology 05/27/19
[2024-04-03 14:53] LABS: Influenza A QL RT-PCR Positive (Negative); Influenza B QL RT-PCR Negative (Negative); RSV RNA, RT-PCR Negative (Negative); SARS-CoV-2 RNA PCR Negative (Negative)
== END 2024-04-03 13:14 | disposition home or self-care (01) ==
LOC: ANHLAB 13:16
PROVIDERS: PCP Internal Medicine; Visit Provider Internal Medicine
DX: R50.9 Fever, unspecified (principal)
CPT/HCPCS: 87637

== ENCOUNTER 2024-05-02 08:13 | Outpatient (CLI) | payer OTHER, SELFPAY | END 2024-05-02 08:14 | disposition home or self-care (01) | LOC: MICIMG 08:13 | PROVIDERS: PCP Internal Medicine; Visit Provider Internal Medicine | DX: M54.16 Radiculopathy, lumbar region (principal); M47.816 Spondylosis without myelopathy or radiculopathy, lumbar region; M47.897 Other spondylosis, lumbosacral region | CPT/HCPCS: 72148 ==

== ENCOUNTER 2024-08-26 15:52 | Outpatient (CLI) | payer OTHER, SELFPAY ==
--- NOTE | ~2024-08-26 | XR_ITS ---
HISTORY: Right hip pain, sacroiliac dysfunction COMPARISON: 03/21/2024 TECHNIQUE: 3 views of the sacroiliac joints were performed FINDINGS: No acute or subacute fracture. No narrowing of the SI joint is appreciated. Trace sclerosis within the upper third on the right in the upper half on the left. Significant degenerative disease is identified at the level of L5/S1 with endplate changes and vacuum phenomena. Soft tissues are unremarkable without radiopaque foreign body or significant calcification. Age-appropriate mineralization. IMPRESSION: No significant sacroiliac joint space narrowing or acute fracture is appreciated. If clinical suspicion persists, cross-sectional imaging (noncontrast enhanced MRI examination of the pelvis) is suggested for further evaluation. Reviewed, dictated and finalized at location A. IMPRESSION: No significant sacroiliac joint space narrowing or acute fracture is appreciated. If clinical suspicion persists, cross-sectional imaging (noncontrast enhanced M RI examination of the pelvis) is suggested for further evaluation.
--- NOTE | ~2024-08-26 | XR_ITS ---
HISTORY: Right hip pain, sacroiliac dysfunction COMPARISON: 03/21/2024 TECHNIQUE: 2 views of the right hip FINDINGS: No acute fracture or dislocation is identified. Superior lateral sclerosis of the femoral acetabular joint space is present consistent with osteoarth ritis. No joint space narrowing within the right sacroiliac joint. Degenerative disease within the visualized portion of the lower lumbar spine. Age-appropriate mineralization. IMPRESSION: Degenerative disease without acute fracture or dislocation Reviewed, dictated and finalized at location A.
== END 2024-08-26 15:53 | disposition home or self-care (01) ==
LOC: MICIMG 15:53
PROVIDERS: PCP Internal Medicine; Visit Provider Physician Assistant
DX: M16.11 Unilateral primary osteoarthritis, right hip (principal); M53.3 Sacrococcygeal disorders, not elsewhere classified
CPT/HCPCS: 72202; 73502